=== PATIENT | female | born 1950 | race Hispanic/Latino ===

== ENCOUNTER 2016-07-20 09:22 | Inpatient (IN) | payer MEDICAID, MEDICARE ==
[~2016-07-20 09:22] MED LIST: VANCOMYCIN/NS 1 GM/250 ML 250 ML IV NR
[2016-07-20] MEDS ORDERED: SUBLIMAZE ONE (09:58)
[2016-07-20] MEDS ORDERED: XYLOCAINE MPF 2% ONE (10:04)
[2016-07-20] MEDS ORDERED: XYLOCAINE 1% 20 mL ONE (10:06)
[2016-07-20] MEDS ORDERED: DIPRIVAN 10 MG/ML IV ONE (10:06)
[2016-07-20] MEDS ORDERED: ZEMURON IV ONE (10:08)
[2016-07-20] MEDS ORDERED: ZOFRAN IV PRN ×2 (10:29→15:08)
--- NOTE | 2016-07-20 10:31 | Anesthesia Day of Surgery ---
Anesthesia Day of Surgery - Day of Surgery Patient Examined: Yes Patient H&P Reviewed: Yes Patient is NPO: Yes Beta Blockers: Yes
--- NOTE | 2016-07-20 10:38 | Anesthesia Consultation ---
Anesthesia Consult and Med Hx Date of service: 07/20/16 - Airway Anesthetic Teeth Evaluation: Dentures (UPPER) ROM Head & Neck: Adequate Mental/Hyoid Distance: Adequate Mallampati Class: Class II Intubation Access Assessment: Probably Good - Pulmonary Exam CTA: Yes - Cardiac Exam Cardiac Exam: RRR - Pre-Operative Health Status ASA Pre-Surgery Classification: ASA4 Proposed Anesthetic Plan: General - Pulmonary Hx Smoking: No Hx Asthma: No Hx Sleep Apnea: No - Cardiovascular System Hx Hypertension: Yes (FOR 20+ YRS) Hx Coronary Artery Disease: Yes (NONOBSTRUCTIVE, STRESS TEST NEGATIVE 04/2015) Hx Heart Attack/AMI: No Hx Angina: No Hx Cardia Arrhythmia: No Hx Heart Murmur: Yes - Central Nervous System Hx Seizures: No CVA: No Hx Back Pain: Yes Hx Psychiatric Problems: Yes (ANXIETY) - Gastrointestinal Hx Gastroesophageal Reflux Disease: Yes - Endocrine Hx Renal Disease: Yes (ON DIALYSIS, LAST DIALYSIS 07/19/2016) Hx End Stage Renal Disease: Yes Hx Cirrhosis: No Hx Insulin Dependent Diabetes: No Hx Non-Insulin Dependent Diabetes: No Hx Thyroid Disease: No - Hematic Hx Anemia: Yes - Other Systems Hx Cancer: No Hx Obesity: Yes (BMI 30) - Additional Comments Anesthesia Medical History Comments: DVT IN BOTH LEGS IN PAST.
[2016-07-20] MEDS: NACL 0.9% 1000 ML 1,000 ML IV SCH ×2 (10:40→17:00)
[2016-07-20] MEDS: VERSED IV NR ×2 (10:53→11:19)
[2016-07-20] MEDS ORDERED: PEPCID PO NR (11:00)
[2016-07-20 11:10] LABS: Basophils % (Auto) 0.6 % (0.0-1.8); Eosinophils % (Auto) 2.9 % (0.0-4.3); Hematocrit 31.2 % (30.3-42.9); Hemoglobin 10.2 gm/dl (10.1-14.3); Mean Corpuscular HGB Conc 33 % (30-34); Mean Corpuscular Hemoglobin 33 pg (28-32); Mean Corpuscular Volume 101 fl (79-97); Platelet Count 164 K/mm3 (140-440); Red Cell Distribution Width 18.1 % (13.2-15.2); White Blood Count 5.4 K/mm3 (4.5-11.0)
[2016-07-20 11:12] LABS: BUN/Creatinine Ratio 5.08; Calcium 8.3 mg/dL (8.4-10.2); Chloride 93.7 mmol/L (98-107); Potassium 3.6 mmol/L (3.6-5.0)
[2016-07-20 11:14] LABS: INR 1.06 (0.87-1.13)
[2016-07-20] MEDS ORDERED: ZOFRAN ONE (11:34)
[2016-07-20] MEDS ORDERED: DECADRON ONE (11:34)
[2016-07-20] MEDS ORDERED: ePHEDrine SULFATE ONE (11:48)
[2016-07-20] MEDS ORDERED: HEPARIN 10,000 UNITS/10 ML 4,000 UNIT in NACL 0.9% 1000 ML 1,000 ML IR ONE ×2 (12:30→14:00)
[2016-07-20] MEDS ORDERED: XYLOCAINE 1%/ EPI 1:100,000 INFILTRATI ONE ×2 (12:30)
[2016-07-20] MEDS ORDERED: NEO SYNEPHRINE ONE (13:49)
[2016-07-20] MEDS ORDERED: HEPARIN 10,000 UNITS/10 ML ONE (13:49)
[2016-07-20] MEDS ORDERED: NACL 0.9% 100 ML ONE (14:51)
[2016-07-20] MEDS ORDERED: MARCAINE 0.5% INFILTRATI ONE (15:00)
--- NOTE | 2016-07-20 15:07 | Operative Report ---
Operative Report Operative Report: Date of Procedure: 07/20/2016 Pre-operative Diagnosis: Complications of Dialysis Access With Left Hand Ischemia Post-operative Diagnosis: Same Procedure(s): 1. Left Axillary Artery to Brachial Artery Bypass with Reversed Left Greater Saphenous Vein Graft Surgeon: Pritseh Romano M.D. Wrinkle Chaser: Sushma Henriquez MD Anesthesia: Gen. endotracheal anesthesia EBL: 200 mL Counts: Correct Complications: None Condition: Stable Findings: Successful left axillary artery to brachial artery bypass with palpable radial pulse and thrill in the AV graft and in the case. Specimen: None Indication: The patient is a 66-year-old female with a history of end-stage renal disease and multiple attempts at access in her arm. She presented for creation of a left axillary artery to axillary vein loop graft that she is currently using for dialysis. 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 She underwent endovascular intervention with balloon angioplasty and initially had improvement in her symptoms however they returned shortly after the procedure. It was felt that the best long-term solution will be a bypass. She was given the risks, benefits, and alternative procedures and consented to procedure. Description of Procedure: The patient was brought to the operating room and laid in supine position. After general endotracheal anesthesia was achieved her left leg and left arm were prepped and draped in normal sterile fashion. Longitudinal skip incisions were created in the left thigh extending from the groin to just proximal to the knee and centered over the saphenous vein. Sharp dissection was used to dissect down to the vein and all branches were suture ligated and divided. Once adequate length had been dissected the vein was suture ligated both proximally and distally and then divided and prepped on the back table to ensure that all side branches had been adequately ligated. Turning attention to the left arm. Longitudinal incision was created just distal to the axillary crease, through her previous incision, and carried down to the axillary artery using sharp dissection. On previous arteriograms the patient appeared to have some evidence of steal even after balloon angioplasty of her brachial artery so I felt that the inflow for her bypass graft should be proximal to the AV graft. I dissected circumferentially around the axillary artery into trouble vessels. I then made a transverse incision below the antecubital crease, through her previous incision, and carried this down to the brachial artery using sharp dissection. I dissected the distal brachial artery as well as the small radial artery and ulnar artery and controlled with Vesseloops. I then used a Rylie-Wick tunneler to tunnel anatomically from the brachial artery to the axillary artery incision and then reversed the greater saphenous vein graft and pulled it through the tunnel. I infused with heparinized saline to assure that it was not twisted. At this point systemically heparinized the patient with heparin IV. I then clamped the axillary artery and created an arteriotomy using 11 blade and Uribe scissors and then beveled the greater saphenous vein graft. I created an end-to-side anastomosis using a 6-0 Prolene in running fashion. After completing the anastomosis released all clamps allow flow through the graft with excellent flow and then clamped the graft just distal to the anastomosis. Of note after releasing the clamps on the axillary artery the AV graft and an excellent thrill. I then cut the graft to length and beveled and then clamped the distal brachial artery as well as the radial ulnar arteries. I created an arteriotomy extending from the brachial artery onto the radial artery and then created an end-to-side anastomosis using a 6-0 Prolene in a running fashion. Prior to completing the anastomosis a fossa graft as well as the arteries and then reclamped and completed the anastomosis. Upon completion of the anastomosis all clamps were removed allowing flow in the graft which had an excellent pulse including excellent pulse in the radial artery. Stasis within all wounds was achieved with quick clot. Once hemostasis was achieved anesthetized with Marcaine and the arm incisions were closed in 2 layers using 3-0 Vicryl running fashion the deep dermal layer and 4- 0 Monocryl in running fashion subcuticular and then dressed with Dermabond. The groin incision was closed in 2 layers using 3-0 Vicryl running fashion and the deep dermal layer and 4 Monocryl in running fashion subcuticular and then just with Dermabond. The remaining thigh incisions were closed in 2 layers using a 3-0 Vicryl running fashion the deep dermal layer and guru for the skin. Those incisions were then dressed with an island dressing. Patient tolerated the procedure well. All sponge, needle, and instrument counts were correct. The patient was taken to the recovery area in stable condition.
[2016-07-20] MEDS ORDERED: D50W (25GM) IV PRN (15:08)
[2016-07-20] MEDS ORDERED: NARCAN 0.4 MG/1 ML IV PRN (15:08)
[2016-07-20] MEDS ORDERED: MORPHINE IV PRN (15:08)
[2016-07-20] MEDS ORDERED: ROXICODONE PO PRN (15:13)
--- NOTE | 2016-07-20 15:49 | Admit Criteria Form ---
Admission Criteria Documentation: AMBULATORY SURGERY EXCEPTION CRITERIA Ambulatory Surgery Exception Criteria ( Place 'X' for any and all applicable criteria): Surgery or procedure performed on ambulatory basis may require inpatient stay for[A] ANY ONE of the following(1)(2)(3)(4)(5)(6)(7)(8)(9): [X] I. A preoperative situation, condition, or finding that warrants inpatient stay as indicated by ANY ONE of the following: [] a) Inpatient care needed because of severity of a disease or condition rather than the surgery (eg, severe cardiac or respiratory disease, severe infection) (15) (16 ) (17) (18) [] b) Emergent procedure (eg, angioplasty for acute ischemia)(19) [] c) Complex surgical approach or situation as indicated by ANY ONE of the following(3): [] i) Open approach needed instead of usual endoscopic, transcatheter, or other less invasive procedure [] ii) Difficult approach because of previous operation [] iii) Airway monitoring required after open neck procedures(20)(21) [] iv) Large mass requiring unusually extensive dissection [] v) Additional complicating feature requiring inpatient care (eg, drain management)(22(23): [X] d) Major surgery in a pt with high anesthetic risk as indicated by ANY ONE of the following (2)(3)(5)(7)(8): [X] i) ASA risk class III or higher (severe systemic disease impairing function) [D] [] ii) Advanced age (eg, older than 85 years)(14)(24) [] iii) Symptomatic heart failure(25) [] iv) Symptomatic asthma or COPD(8)(21) [] v) Morbid obesity with hemodynamic or respiratory problems(20)( 21)(26)(27) [] vi) Obstructive sleep apnea(20)(21) [] vii) Former premature infants who are younger than 60 weeks [] viii) High risk for severe postoperative abnormalities (eg, severe postoperative hypocalcemia after parathyroidectomy for severe hyperparathyroidism)(27)( 28) [] ix) Unstable angina(25) [] e) Drug-related risk requiring inpatient stay as indicated by ANY ONE of the following(5)(10)(14)(32)(33) [] i) Procedure requires discontinuing drugs or other therapy (eg , antiarrhythmic medication, antiseizure medication), which necessitates inpatient observation or treatment.(18)(31) [] ii) Major surgery and high risk drug use as indicated by ANY ONE of the following: [] 1) Active abuse of cocaine or similar drug [] 2) Monoamine oxidase inhibitor use [] 3) Other drug identified as posing risk [] f) Inadequate outpatient care situation as indicated by ANY ONE of the following(5)(10)(14)(32)(33) [] i) Patient lives remote from medical facility and procedure has urgent complication potential, and temporary nearby residence cannot be arranged [] ii) Patient will have postprocedure incapacitation and inadequate assistance at home, or alternative level of care cannot be arranged. [] iii) Patient will have long general anesthesia or procedure side effect resolution time, and competent person to stay with patient on first postoperative night at home or alternative level of care cannot be arranged. []iv) Other inadequate outpatient situation that cannot be handled by other means [] II. A perioperative event, condition, or finding that warrants inpatient stay as indicated by ANY ONE of the following (1)(2)(3): [] a) Inadequate physiologic recovery: cardiovascular, respiratory, or hemodynamic status not normal or near preoperative baseline(18) [] b) Hemodynamic instability [] c) Patient not alert with near normal or baseline mental status [] d) Temperature not normal or as expected and not appropriate for outpatient treatment of condition [] e) Ambulatory or appropriate activity level status not yet achieved post procedure [E](34)(35)(36) [] f) Operative site not appropriate (eg, unexpected or excessive drainage or bleeding) [] g) Postoperative effects not resolved or adequately managed (eg, significant pain or vomiting not appropriate for outpatient or next level of care)(10)(12) [] h) Complicating features requiring inpatient care as indicated by ANY ONE of the following(37): [] i) Severe complications of procedure (eg, bowel injury, airway compromise, vascular injury,severe hemorrhage) [] ii) Extensive (eg, dissection far beyond usual scope of procedure ) or prolonged (eg, 120 minutes beyond usual) surgery needed requiring inpatient postoperative care [] iii) Conversion to an open or complex procedure that requires inpatient care (eg, open vs laparoscopic cholecystectomy, abdominal vs vaginal hysterectomy)(38) [] iv) Comorbid condition or test result identified during or post procedure that requires inpatient care (7) [] v) Malignant hyperthermia(30) [] vi) Other complicating feature requiring inpatient care(22)(23) Inpatient stay may be needed until ALL of the following are present (1)(2)(3)(4) (5)(6)(10)(14)(33)(40): []a) Physiologic recovery: cardiovascular, respiratory, and hemodynamic status normal or near preoperative baseline []b) Hemodynamic stability []c) Patient alert, with near normal or baseline mental status []d) Temperature appropriate: patient afebrile or temperature appropriate for outpt treatment of condition []e) Activity level appropriate: ambulatory or appropriate activity level post procedure []f) Operative site appropriate as indicated by ALL of the following: []i) Site dry or with expected drainage []ii) Any blood noted is as expected for procedure. []g) Postoperative effects resolved or managed as indicated by ALL of the following: []i) Pain management appropriate for outpatient (or next level of) care(10) []ii) Minimal nausea and vomiting: if present, successfully treated with oral medication(12) []iii) Headache, dizziness, or drowsiness (if present) are mild. []h) Voiding status acceptable as indicated by ANY ONE of the following: []i) Voiding spontaneously []ii) No voiding but instructions given for follow-up in 6 to 8 hours []iii) Urinary catheter in place, and instructions given for follow-up []i) Complicating features requiring inpatient care manageable at a lower level of care(37) []j) Comorbid conditions manageable at a lower level of care(37) The original [employer] content created by [employer] has been revised. The portions of the content which have been revised are identified through the use of italic text or in bold, and [facility] [employer] has neither reviewed nor approved the modified material. All other unmodified content is copyright [employer]. Please see references footnoted in the original [employer] edition 2016 Admission Criteria Met: Yes
[2016-07-20] MEDS: DILAUDID IV PRN ×4 (16:00→21:30)
--- NOTE | 2016-07-20 16:17 | Post Anesthesia Evaluation ---
- Post Anesthesia Evaluation Patient Participated: Yes Airway Patent: Yes Stable Respiratory Function: Yes Temp > 96.8F: Yes Pain Manageable: Yes Adequeate Hydration: Yes Anesthesia Complications: No Block Receding Appropriately: Not Applicable
[2016-07-20] MEDS ORDERED: COUMADIN PO SCH (17:00)
[2016-07-20] MEDS: RENVELA PO SCH (18:33)
[2016-07-20] MEDS: NOVOLOG SUB-Q SCH ×2 (18:48→23:17)
[2016-07-20] MEDS: TRILEPTAL PO SCH (20:05)
[2016-07-20] MEDS ORDERED: VANCOMYCIN/NS 1 GM/250 ML 250 ML IV SCH (23:00)
[2016-07-20] MEDS: AMBIEN PO SCH (23:17)
[2016-07-20] MEDS: XANAX PO PRN (23:17)
[2016-07-20] MEDS: NEURONTIN PO SCH (23:17)
[2016-07-21] MEDS: DILAUDID IV PRN ×5 (01:05→22:03)
[2016-07-21] MEDS: ZANAFLEX PO SCH ×2 (01:06→21:43)
[2016-07-21 04:39] LABS: Hematocrit 26.1 % (30.3-42.9); Hemoglobin 8.4 gm/dl (10.1-14.3)
[2016-07-21 05:00] LABS: BUN/Creatinine Ratio 6.11; Calcium 7.4 mg/dL (8.4-10.2); Chloride 95.6 mmol/L (98-107); Potassium 5.4 mmol/L (3.6-5.0)
[2016-07-21] MEDS: NACL 0.9% 1000 ML 1,000 ML IV SCH (06:26)
[2016-07-21] MEDS: RENVELA PO SCH ×3 (08:58→19:39)
[2016-07-21] MEDS: NOVOLOG SUB-Q SCH ×2 (08:58→17:04)
[2016-07-21] MEDS: TRILEPTAL PO SCH ×3 (09:12→19:39)
--- NOTE | 2016-07-21 09:34 | Consultation ---
History of Present Illness - Reason for Consult Consult date: 07/21/16 end stage renal disease - History of Present Illness patient with h/o ESRD on HD every TTS, last treatment was sunday she was admitted by Dr Romano for due to complication in her L AV shunt, she developed numbness and ischemic changes in her left hand and she was found to have stenosis in the brachial artery which failed angioplasty, she was admitted to for bypass prcoedure which went well. renal consult requested for ESRD and HD management Past History Past Medical History: diabetes, ESRD, hypertension Medications and Allergies Allergies Allergy/AdvReac Type Severity Reaction Status Date / Time acetaminophen Allergy Itching Verified 09/30/15 12:28 [From Darvocet-N] aspirin Allergy Anaphylaxis Verified 12/06/15 09:24 ciprofloxacin Allergy Hives Verified 09/30/15 12:28 ketorolac tromethamine Allergy Hives Verified 09/30/15 12:28 [From Toradol] lorazepam [From Ativan] Allergy Itching Verified 12/06/15 09:25 nifedipine [From Procardia] Allergy Swelling Verified 09/30/15 12:28 OF THROAT nitrofurantoin Allergy Hives Verified 09/30/15 12:28 [From Macrobid] nitrofurantoin Allergy Hives Verified 09/30/15 12:28 macrocrystalline [From Macrobid] Penicillins Allergy Hives Verified 09/30/15 12:28 propoxyphene napsylate Allergy Itching Verified 09/30/15 12:28 [From Darvocet-N] Sulfa (Sulfonamide AdvReac Swelling Verified 04/15/15 15:41 Antibiotics) Home Medications Medication Instructions Recorded Confirmed Last Taken Type ALPRAZolam [Xanax TAB] 0.5 mg PO BID PRN 04/15/15 07/20/16 07/19/16 History Allopurinol [Zyloprim] 100 mg PO QDAY 04/15/15 07/26/15 Unknown History Folic Acid [Folvite] 1 mg PO QDAY 04/15/15 07/20/16 07/19/16 History Gabapentin [Neurontin] 300 mg PO BID 04/15/15 07/20/16 07/19/16 History Ranitidine HCl [Zantac 150 MG TAB] 150 mg PO DAILY 04/15/15 07/26/15 Unknown History Zolpidem [Ambien] 10 mg PO QHS 04/15/15 07/20/16 07/19/16 History amLODIPine [Norvasc] 5 mg PO DAILY 04/15/15 07/20/16 07/20/16 History cloNIDine [Catapres] 0.2 mg PO QDAY 04/15/15 07/20/16 07/20/16 History Cinacalcet [Sensipar] 60 mg PO QDAY 07/26/15 07/20/16 07/19/16 History Sevelamer Carbonate [Renvela] 800 mg PO TIDWM 07/26/15 07/20/16 07/19/16 History Clopidogrel Bisulfate [Plavix] 75 mg PO DAILY 05/04/16 07/20/16 07/05/16 History Coumadin 20 mg PO QDAY 07/04/16 07/20/16 07/05/16 History Carvedilol [Coreg] 12.5 mg PO QDAY 07/12/16 07/20/16 07/20/16 History HYDROcodone/APAP 10-325 [[place] 1 each PO Q4HR PRN 07/12/16 07/20/16 07/19/16 History 10/325] OXcarbazepine [Trileptal] 300 mg PO TID 07/12/16 07/20/16 07/19/16 History Omeprazole Magnesium [PriLOSEC Otc] 20 mg PO QDAY 07/12/16 07/20/16 07/19/16 History Tizanidine HCl [tiZANidine] 4 mg PO QHS 07/12/16 07/20/16 07/19/16 History Vit B Cplx #11/FA/C/Biot/Zn Ox 1 each PO QDAY 07/12/16 07/20/16 07/19/16 History [Dialyvite with Zinc Tablet] Active Meds: Active Medications Alprazolam (Xanax) 0.5 mg PO BID PRN PRN Reason: Anxiety Last Admin: 07/20/16 23:17 Dose: 0.5 mg Amlodipine Besylate (Norvasc) 5 mg PO DAILY [facility] Carvedilol (Coreg) 12.5 mg PO QDAY [facility] Cinacalcet (Sensipar) 60 mg PO QDAY [facility] Clonidine HCl (Catapres) 0.2 mg PO QDAY [facility] Clopidogrel Bisulfate (Plavix) 75 mg PO DAILY [facility] Dextrose (D50w (25gm)) 50 ml IV PRN PRN PRN Reason: Hypoglycemia Epoetin [place] (Procrit) 10,000 unit IV MIGUEL ÁNGEL PRN PRN Reason: hemodialysis Folic Acid (Folvite) 1 mg PO QDAY [facility] Gabapentin (Neurontin) 300 mg PO BID [facility] Last Admin: 07/20/16 23:17 Dose: 300 mg Hydromorphone HCl (Dilaudid) 1 mg IV Q4H PRN PRN Reason: Pain , Severe (7-10) Last Admin: 07/21/16 05:18 Dose: 1 mg Sodium Chloride (Nacl 0.9% 1000 Ml) 1,000 mls @ 42 mls/hr IV DIRECT [facility] Last Admin: 07/21/16 06:26 Dose: 42 mls/hr Insulin Aspart (Novolog) 0 units SUB-Q ACHS [facility]IO PRN Reason: Protocol Last Admin: 07/21/16 08:58 Dose: Not Given Multivit/Ca Carb/B Cmplx/FA/Prenat (Renal Caps) 1 cap PO QDAY [facility] Naloxone HCl (Narcan 0.4 Mg/1 Ml) 0.1 mg IV Q2MIN PRN PRN Reason: Res Rate </= 8 or 02 SAT < 92% Ondansetron HCl (Zofran) 4 mg IV Q8H PRN PRN Reason: Nausea And Vomiting Oxcarbazepine (Trileptal) 300 mg PO TID [facility] Last Admin: 07/21/16 09:12 Dose: 300 mg Oxycodone HCl (Roxicodone) 10 mg PO Q4H PRN PRN Reason: Pain, Moderate (4-6) Pantoprazole Sodium (Protonix) 20 mg PO QDAY [facility] Sevelamer Carbonate (Renvela) 800 mg PO TIDWM [facility] Last Admin: 07/21/16 08:58 Dose: 800 mg Tizanidine HCl (Zanaflex) 4 mg PO QHS [facility] Last Admin: 07/21/16 01:06 Dose: 4 mg Warfarin Sodium (Coumadin) 10 mg PO DAILY@1700 [facility] Last Admin: 07/20/16 18:33 Dose: 10 mg Zolpidem Tartrate (Ambien) 10 mg PO QHS [facility] Last Admin: 07/20/16 23:17 Dose: 10 mg Review of Systems All systems: negative (weakness, pain at surgical site) Exam - Vital Signs Vital signs: Vital Signs Temp Pulse Resp BP Pulse Ox 98.7 F 83 20 136/58 93 07/20/16 10:00 07/20/16 10:00 07/20/16 10:00 07/20/16 10:00 07/20/16 10:00 - General Appearance General appearance: well-developed, well-nourished EENT: ATNC, PERRL, mucous membranes moist Neck: Present: neck supple Heart: regular, S1S2 Gastrointestinal: Present: normoactive bowel sounds. Absent: tenderness, distended, masses Integumentary: no rash, warm and dry Neurologic: no focal deficit, no asterixis, alert and oriented x3 Musculoskeletal: Present: other (trace pitting edema in BLE, + thrill and bruit in AV shunt) Psychiatric: mood/affect appropriate, cooperative Results - Lab Results 07/21/16 04:23 07/21/16 04:23 Most recent lab results Calcium 7.4 mg/dL (8.4-10.2) L 07/21/16 04:23 Assessment and Plan - Patient Problems (1) ESRD (end stage renal disease) on dialysis Current Visit: No Status: Chronic Plan to address problem: HD today for clearance and gentle volume removal will assess dialysis needs daily strict I&O daily weight renally dose meds renal diet (2) Hypotension Current Visit: No Status: Acute Plan to address problem: cont to hold BP meds gentle IVF (3) Anemia in chronic kidney disease (CKD) Current Visit: Yes Status: Acute Plan to address problem: Epogen with HD iron panel ordered (4) Secondary hyperparathyroidism (of renal origin) Current Visit: Yes Status: Acute Plan to address problem: cont phos binders will check phos in AM cont sensipar (5) Type 2 diabetes mellitus with chronic kidney disease Current Visit: Yes Status: Acute Plan to address problem: on insulin
--- NOTE | 2016-07-21 09:36 | Consultation ---
History of Present Illness Consult date: 07/21/16 Reason for consult: other (ESRD, S/P left axillary artery to brachial artery bypass with palpable radial pulse and thrill in the AV graft and in the case.) History of present illness: Called to evaluate case of a 66-year-old female with a history of end-stage renal disease and AV bypass . Per record,, she had " multiple attempts at access in her arm. She presented for creation of a left axillary artery to axillary vein loop graft that she is currently using for dialysis. 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 She underwent endovascular intervention with balloon angioplasty and initially had improvement in her symptoms however they returned shortly after the procedure. It was felt that the best long-term solution will be a bypass. She was given the risks, benefits , and alternative procedures and consented to procedure". Admitted to ICU after successful left axillary artery to brachial artery bypass with palpable radial pulse and thrill in the AV graft and in the case.Pulm/CCM asked to follow/monitor Medications and Allergies Allergies Allergy/AdvReac Type Severity Reaction Status Date / Time acetaminophen Allergy Itching Verified 09/30/15 12:28 [From Darvocet-N] aspirin Allergy Anaphylaxis Verified 12/06/15 09:24 ciprofloxacin Allergy Hives Verified 09/30/15 12:28 ketorolac tromethamine Allergy Hives Verified 09/30/15 12:28 [From Toradol] lorazepam [From Ativan] Allergy Itching Verified 12/06/15 09:25 nifedipine [From Procardia] Allergy Swelling Verified 09/30/15 12:28 OF THROAT nitrofurantoin Allergy Hives Verified 09/30/15 12:28 [From Macrobid] nitrofurantoin Allergy Hives Verified 09/30/15 12:28 macrocrystalline [From Macrobid] Penicillins Allergy Hives Verified 09/30/15 12:28 propoxyphene napsylate Allergy Itching Verified 09/30/15 12:28 [From Darvocet-N] Sulfa (Sulfonamide AdvReac Swelling Verified 04/15/15 15:41 Antibiotics) Home Medications Medication Instructions Recorded Confirmed Last Taken Type ALPRAZolam [Xanax TAB] 0.5 mg PO BID PRN 04/15/15 07/20/16 07/19/16 History Allopurinol [Zyloprim] 100 mg PO QDAY 04/15/15 07/26/15 Unknown History Folic Acid [Folvite] 1 mg PO QDAY 04/15/15 07/20/16 07/19/16 History Gabapentin [Neurontin] 300 mg PO BID 04/15/15 07/20/16 07/19/16 History Ranitidine HCl [Zantac 150 MG TAB] 150 mg PO DAILY 04/15/15 07/26/15 Unknown History Zolpidem [Ambien] 10 mg PO QHS 04/15/15 07/20/16 07/19/16 History amLODIPine [Norvasc] 5 mg PO DAILY 04/15/15 07/20/16 07/20/16 History cloNIDine [Catapres] 0.2 mg PO QDAY 04/15/15 07/20/16 07/20/16 History Cinacalcet [Sensipar] 60 mg PO QDAY 07/26/15 07/20/16 07/19/16 History Sevelamer Carbonate [Renvela] 800 mg PO TIDWM 07/26/15 07/20/16 07/19/16 History Clopidogrel Bisulfate [Plavix] 75 mg PO DAILY 05/04/16 07/20/16 07/05/16 History Coumadin 20 mg PO QDAY 07/04/16 07/20/16 07/05/16 History Carvedilol [Coreg] 12.5 mg PO QDAY 07/12/16 07/20/16 07/20/16 History HYDROcodone/APAP 10-325 [Sasser 1 each PO Q4HR PRN 07/12/16 07/20/16 07/19/16 History 10/325] OXcarbazepine [Trileptal] 300 mg PO TID 07/12/16 07/20/16 07/19/16 History Omeprazole Magnesium [PriLOSEC Otc] 20 mg PO QDAY 07/12/16 07/20/16 07/19/16 History Tizanidine HCl [tiZANidine] 4 mg PO QHS 07/12/16 07/20/16 07/19/16 History Vit B Cplx #11/FA/C/Biot/Zn Ox 1 each PO QDAY 07/12/16 07/20/1616 History [Dialyvite with Zinc Tablet] Active Meds: Active Medications Alprazolam (Xanax) 0.5 mg PO BID PRN PRN Reason: Anxiety Last Admin: 07/20/16 23:17 Dose: 0.5 mg Amlodipine Besylate (Norvasc) 5 mg PO DAILY [facility] Carvedilol (Coreg) 12.5 mg PO QDAY [facility] Cinacalcet (Sensipar) 60 mg PO QDAY [facility] Clonidine HCl (Catapres) 0.2 mg PO QDAY [facility] Clopidogrel Bisulfate (Plavix) 75 mg PO DAILY [facility] Dextrose (D50w (25gm)) 50 ml IV PRN PRN PRN Reason: Hypoglycemia Epoetin [place] (Procrit) 10,000 unit IV MIGUEL ÁNGEL PRN PRN Reason: hemodialysis Folic Acid (Folvite) 1 mg PO QDAY [facility] Gabapentin (Neurontin) 300 mg PO BID [facility] Last Admin: 07/20/16 23:17 Dose: 300 mg Hydromorphone HCl (Dilaudid) 1 mg IV Q4H PRN PRN Reason: Pain , Severe (7-10) Last Admin: 07/21/16 05:18 Dose: 1 mg Sodium Chloride (Nacl 0.9% 1000 Ml) 1,000 mls @ 42 mls/hr IV DIRECT [facility] Last Admin: 07/21/16 06:26 Dose: 42 mls/hr Insulin Aspart (Novolog) 0 units SUB-Q ACHS [facility] PRN Reason: Protocol Last Admin: 07/21/16 08:58 Dose: Not Given Multivit/Ca Carb/B Cmplx/FA/Prenat (Renal Caps) 1 cap PO QDAY [facility] Naloxone HCl (Narcan 0.4 Mg/1 Ml) 0.1 mg IV Q2MIN PRN PRN Reason: Res Rate </= 8 or 02 SAT < 92% Ondansetron HCl (Zofran) 4 mg IV Q8H PRN PRN Reason: Nausea And Vomiting Oxcarbazepine (Trileptal) 300 mg PO TID [facility] Last Admin: 07/21/16 09:12 Dose: 300 mg Oxycodone HCl (Roxicodone) 10 mg PO Q4H PRN PRN Reason: Pain, Moderate (4-6) Pantoprazole Sodium (Protonix) 20 mg PO QDAY [facility] Sevelamer Carbonate (Renvela) 800 mg PO TIDWM [facility] Last Admin: 07/21/16 08:58 Dose: 800 mg Tizanidine HCl (Zanaflex) 4 mg PO QHS [facility] Last Admin: 07/21/16 01:06 Dose: 4 mg Warfarin Sodium (Coumadin) 10 mg PO DAILY@1700 [facility] Last Admin: 07/20/16 18:33 Dose: 10 mg Zolpidem Tartrate (Ambien) 10 mg PO QHS [facility] Last Admin: 07/20/16 23:17 Dose: 10 mg Review of Systems Constitutional: fatigue, no weight loss, no weight gain, no fever, no chills, no sweats, no night sweats Cardiovascular: no chest pain, no orthopnea, no palpitations, no rapid/ irregular heart beat, no edema, no syncope, no shortness of breath Respiratory: no cough, no cough with sputum, no excessive sputum, no hemoptysis , no shortness of breath, no dyspnea on exertion, no congestion, no wheezing Gastrointestinal: no abdominal pain, no nausea, no vomiting, no diarrhea, no BRBPR, no melena, no hematochezia, no loss of appetite Genitourinary Female: no dyspareunia, no dysmenorrhea Musculoskeletal: other Integumentary: wounds Neurological: no head injury, no paralysis, no weakness, no parathesias, no numbness, no tingling, no seizures Hematologic/Lymphatic: no easy bruising, no easy bleeding Physical Examination Vital signs: Vital Signs Temp Pulse Resp BP Pulse Ox 98.7 F 83 20 136/58 93 07/20/16 10:00 07/20/16 10:00 07/20/16 10:00 07/20/16 10:00 07/20/16 10:00 General appearance: no acute distress Eyes: non-icteric ENT: oropharynx moist Neck: supple Ascultation: Bilateral: clear Cardiovascular: regular rate and rhythm Gastrointestinal: normoactive bowel sounds, non-distended Integumentary: other (right antecubital surgery healing well no gross bleeding) normal mental status, non-focal exam mood appropriate, affect normal Results - Laboratory Findings CBC and BMP: 07/21/16 04:23 07/21/16 04:23 PT/INR, D-dimer PT 13.1 Sec. (12.2-14.9) 07/21/16 04:23 INR 1.00 (0.87-1.13) 07/21/16 04:23 Abnormal lab findings: Abnormal Labs 07/20/16 07/20/16 07/20/16 10:20 10:20 15:36 RBC 3.10 L Hgb Hct MCV 101 H MCH 33 H RDW 18.1 H [place] % (Auto) 9.8 H Potassium Chloride 93.7 L BUN 31 H Creatinine 6.1 H Glucose 102 H POC Glucose 132 H Calcium 8.3 L 07/20/16 07/20/16 07/21/16 18:42 22:50 04:23 RBC Hgb 8.4 L Hct 26.1 L MCV MCH RDW [place] % (Auto) Potassium Chloride BUN Creatinine Glucose POC Glucose 143 H 156 H Calcium 07/21/16 07/21/16 04:23 07:34 RBC Hgb Hct MCV MCH RDW [place] % (Auto) Potassium 5.4 H D Chloride 95.6 L BUN 44 H Creatinine 7.2 H Glucose 139 H POC Glucose 141 H Calcium 7.4 L Assessment and Plan S/P left axillary artery to brachial artery bypass AV graft . Pulses adequate End-stage renal disease Hypertension Recommendations Continue oxygen support if needed to maintain oximetry over 92%. Temperature do well with room air DVT prophylaxis Okay to transfer out from a pulmonary standpoint, once reviewed by surgeon and approved Continue hemodialysis per nephrology.
[2016-07-21] MEDS ORDERED: NON-FORMULARY (Vit B Cplx #11/Fa/C/Biot/Zn Ox [Dialyvite With Zinc Tablet] 1 EACH) PO SCH (10:00)
[2016-07-21] MEDS ORDERED: WARFARIN PO SCH (10:00)
[2016-07-21] MEDS ORDERED: LOVENOX SUB-Q SCH (10:00)
[2016-07-21] MEDS ORDERED: NON-FORMULARY (Omeprazole Magnesium [Prilosec Otc] 20 MG) PO SCH (10:00)
[2016-07-21] MEDS: SENSIPAR PO SCH (10:22)
[2016-07-21] MEDS: PLAVIX PO SCH (10:22)
[2016-07-21] MEDS: FOLVITE PO SCH (10:22)
[2016-07-21] MEDS: PROTONIX PO SCH (10:22)
[2016-07-21] MEDS: NEURONTIN PO SCH ×2 (10:22→21:44)
[2016-07-21] MEDS: CATAPRES PO SCH (10:23)
[2016-07-21] MEDS: COREG PO SCH (10:23)
[2016-07-21] MEDS: NORVASC PO SCH (10:23)
[2016-07-21] MEDS: Renal Caps PO SCH (10:23)
--- NOTE | 2016-07-21 12:31 | Progress Note ---
Assessment and Plan Patient is doing well. I have encouraged her to use oral narcotics for pain control. She will undergo dialysis today. If her pain is better controlled tomorrow and she is clear from a renal standpoint she will be able to be discharged home tomorrow. We'll transfer to the floor. The patient has a hypercoagulable state and is on oral anticoagulation. The patient has confirmed that she is currently on 20 mg of warfarin daily. Given her hypercoagulable state and the fact that she has thrombosed her AV access multiple times and has a new bypass will restart her Coumadin at her home dose and bridge her with Eliquis was until her INR is therapeutic. I discussed this patient in plan with the patient and provided her with Eliquis samples so that she continue this upon discharge. Subjective Date of service: 07/21/16 Principal diagnosis: complications of dialysis access Interval history: The patient's complain of pain at the incisions that is poorly controlled with her current pain regimen. She states that she is using IV medication in the oral narcotics. She does state that her left hand is pain-free and all of her numbness has resolved. She has no other complaints at this time. Objective - Constitutional Vitals: Vital Signs - 12hr 07/21/16 07/21/16 07/21/16 01:00 02:00 02:15 Temperature 97.8 F Pulse Rate 81 67 Respiratory 16 12 Rate Blood Pressure 112/60 86/44 O2 Sat by Pulse 100 97 Oximetry 07/21/16 07/21/16 07/21/16 03:00 04:00 05:00 Temperature Pulse Rate 67 66 62 Respiratory 8 L 7 L 9 L Rate Blood Pressure 102/47 93/45 95/41 O2 Sat by Pulse 97 98 96 Oximetry 07/21/16 07/21/16 07/21/16 05:02 05:04 06:00 Temperature 97.3 F L Pulse Rate 61 63 63 Respiratory 9 L 8 L 7 L Rate Blood Pressure 95/41 95/41 84/38 O2 Sat by Pulse 96 96 97 Oximetry 07/21/16 07/21/16 07/21/16 06:34 07:00 07:42 Temperature Pulse Rate 64 60 70 Respiratory 10 L 9 L 13 Rate Blood Pressure 84/41 91/39 95/44 O2 Sat by Pulse 98 98 98 Oximetry 07/21/16 07/21/1607/21/16 07:46 08:00 08:19 Temperature 97.7 F Pulse Rate 63 Respiratory 9 L Rate Blood Pressure 91/44 O2 Sat by Pulse 100 96 Oximetry 07/21/16 07/21/16 07/21/16 09:00 09:07 10:00 Temperature Pulse Rate 62 72 Respiratory 10 L 9 L Rate Blood Pressure 95/44 105/46 O2 Sat by Pulse 99 98 100 Oximetry 07/21/16 07/21/16 07/21/16 10:23 11:00 11:35 Temperature Pulse Rate 64 60 73 Respiratory 7 L 9 L Rate Blood Pressure 105/46 97/41 97/41 O2 Sat by Pulse 99 100 Oximetry 07/21/16 12:00 Temperature Pulse Rate 70 Respiratory 13 Rate Blood Pressure 103/48 O2 Sat by Pulse 100 Oximetry General appearance: Present: no acute distress - Respiratory Respiratory effort: normal - Cardiovascular Rhythm: regular Extremities: no ischemia, pulses intact (palpable left radial pulse), abnormal ( left thigh and arm incisions are clean dry and intact) Extremity abnormal: other (left AV fistula with excellent thrill) - Gastrointestinal General gastrointestinal: Present: soft, non-tender, non-distended - Labs CBC & Chem 7: 07/21/16 04:23 07/21/16 04:23 Labs: Abnormal lab results 07/20/16 07/20/16 07/20/16 Range/Units 15:36 18:42 22:50 Hgb (10.1-14.3) gm/dl Hct (30.3-42.9) % Potassium (3.6-5.0) mmol/L Chloride (98-107) mmol/L BUN (7-17) mg/dL Creatinine (0.7-1.2) mg/dL Glucose (65-100) mg/dL POC Glucose 132 H 143 H 156 H (70-105) Calcium (8.4-10.2) mg/dL 07/21/16 07/21/16 07/21/16 Range/Units 04:23 04:23 07:34 Hgb 8.4 L (10.1-14.3) gm/dl Hct 26.1 L (30.3-42.9) % Potassium 5.4 H D (3.6-5.0) mmol/L Chloride 95.6 L (98-107) mmol/L BUN 44 H (7-17) mg/dL Creatinine 7.2 H (0.7-1.2) mg/dL Glucose 139 H (65-100) mg/dL POC Glucose 141 H (70-105) Calcium 7.4 L (8.4-10.2) mg/dL 07/21/16 Range/Units 11:30 Hgb (10.1-14.3) gm/dl Hct (30.3-42.9) % Potassium (3.6-5.0) mmol/L Chloride (98-107) mmol/L BUN (7-17) mg/dL Creatinine (0.7-1.2) mg/dL Glucose (65-100) mg/dL POC Glucose 192 H (70-105) Calcium (8.4-10.2) mg/dL
[2016-07-21] MEDS: PROCRIT IV PRN (14:34)
[2016-07-21] MEDS ORDERED: COUMADIN PO SCH (17:00)
[2016-07-21] MEDS: AMBIEN PO SCH (21:44)
[2016-07-21] MEDS: ELIQUIS PO SCH (21:45)
[2016-07-21] MEDS: XANAX PO PRN (21:46)
[2016-07-22] MEDS: NOVOLOG SUB-Q SCH ×4 (01:22→23:09)
[2016-07-22] MEDS: PLAVIX PO SCH (09:03)
[2016-07-22] MEDS: SENSIPAR PO SCH (09:03)
[2016-07-22] MEDS: ELIQUIS PO SCH ×2 (09:03→23:12)
[2016-07-22] MEDS: NEURONTIN PO SCH ×2 (09:04→23:11)
[2016-07-22] MEDS: RENVELA PO SCH (09:04)
[2016-07-22] MEDS: Renal Caps PO SCH (09:04)
[2016-07-22] MEDS: TRILEPTAL PO SCH ×2 (09:05→20:40)
[2016-07-22] MEDS: NORVASC PO SCH (09:05)
[2016-07-22] MEDS: FOLVITE PO SCH (09:05)
[2016-07-22] MEDS: PROTONIX PO SCH (09:05)
[2016-07-22] MEDS: COREG PO SCH ×2 (09:06→23:10)
[2016-07-22] MEDS: CATAPRES PO SCH (09:07)
[2016-07-22 09:24] LABS: INR 1.7 (0.87-1.13)
[2016-07-22] MEDS: DILAUDID IV PRN ×3 (09:34→20:43)
[2016-07-22 10:12] LABS: Basophils % (Auto) 0.7 % (0.0-1.8); Eosinophils % (Auto) 1.5 % (0.0-4.3); Hematocrit 25.7 % (30.3-42.9); Hemoglobin 8.1 gm/dl (10.1-14.3); Mean Corpuscular HGB Conc 32 % (30-34); Mean Corpuscular Hemoglobin 33 pg (28-32); Mean Corpuscular Volume 103 fl (79-97); Platelet Count 164 K/mm3 (140-440); Red Blood Count 2.49 M/mm3 (3.65-5.03); Red Cell Distribution Width 18.7 % (13.2-15.2); White Blood Count 6.9 K/mm3 (4.5-11.0)
--- NOTE | 2016-07-22 10:32 | Progress Note ---
Assessment and Plan - Patient Problems (1) ESRD (end stage renal disease) on dialysis Current Visit: No Status: Chronic Plan to address problem: patient' schedule for outpatient HD is TTS will order HD again today for clearance and volume removal can be discharged from renal standpoint post HD, next scheduled treatment as an outpatient 1/3 (2) Hypotension Current Visit: No Status: Acute Plan to address problem: will d/c clonidine and decrease coreg to 6.25 mg BID (3) Anemia in chronic kidney disease (CKD) Current Visit: Yes Status: Acute Plan to address problem: epogen with HD (4) Secondary hyperparathyroidism (of renal origin) Current Visit: Yes Status: Acute Plan to address problem: cont binders and sensipar (5) Type 2 diabetes mellitus with chronic kidney disease Current Visit: Yes Status: Acute Plan to address problem: cont current insulin regimen Subjective Date of service: 07/22/16 Principal diagnosis: complications of dialysis access Interval history: tolerated HD well yesterday Objective - Vital Signs Vital signs: Vital Signs - 12hr 07/22/16 07/22/16 07/22/16 08:05 09:05 09:06 Temperature 99.2 F Pulse Rate 74 7 L Pulse Rate [ 74 Right Radial] Respiratory 16 Rate Blood Pressure 110/56 110/56 Blood Pressure 110/56 [Right Arm] O2 Sat by Pulse 100 Oximetry 07/22/16 07/22/16 09:07 09:34 Temperature Pulse Rate 74 Pulse Rate [ Right Radial] Respiratory 18 Rate Blood Pressure 110/56 Blood Pressure [Right Arm] O2 Sat by Pulse Oximetry - General Appearance General appearance: well-developed, well-nourished EENT: ATNC, PERRL, mucous membranes moist Neck: no JVD, no carotid bruit Respiratory: Present: Clear to Ascultation Cardiology: regular, S1S2 Gastrointestinal: normoactive bowel sounds, no tenderness, no distended Integumentary: no rash, warm and dry Neurologic: no focal deficit, no asterixis, alert and oriented x3 Musculoskeletal: deferred Psychiatric: mood/affect appropriate, cooperative - Lab 07/22/16 09:43 07/21/16 04:23 Most recent lab results Calcium 7.4 mg/dL (8.4-10.2) L 07/21/16 04:23
[2016-07-22 10:35] LABS: BUN/Creatinine Ratio 5.08; Calcium 8.4 mg/dL (8.4-10.2); Chloride 97.8 mmol/L (98-107); Phosphorous 4.7 mg/dL (2.5-4.5); Potassium 4.7 mmol/L (3.6-5.0)
--- NOTE | 2016-07-22 13:08 | Progress Note ---
Assessment and Plan - Patient Problems (1) Anemia in chronic kidney disease (CKD) Current Visit: Yes Status: Acute (2) Acute on chronic renal failure Current Visit: No Status: Acute (3) Hypoxia Current Visit: Yes Status: Acute Subjective Principal diagnosis: complications of dialysis access Interval history: out of ic, no sob Objective Vital Signs - 12hr 07/22/16 07/22/16 07/22/16 08:05 09:05 09:06 Temperature 99.2 F Pulse Rate 74 7 L Pulse Rate [ 74 Right Radial] Respiratory 16 Rate Blood Pressure 110/56 110/56 Blood Pressure 110/56 [Right Arm] O2 Sat by Pulse 100 Oximetry 07/22/16 07/22/16 09:07 09:34 Temperature Pulse Rate 74 Pulse Rate [ Right Radial] Respiratory 18 Rate Blood Pressure 110/56 Blood Pressure [Right Arm] O2 Sat by Pulse Oximetry Constitutional: no acute distress Eyes: non-icteric ENT: oropharynx moist Neck: supple Ascultation: Bilateral: clear Cardiovascular: regular rate and rhythm Gastrointestinal: normoactive bowel sounds, non-distended Integumentary: other (right antecubital surgery healing well no gross bleeding) Neurologic: normal mental status, non-focal exam Psychiatric: mood appropriate, affect normal CBC and BMP: 07/22/16 09:43 07/22/16 09:43 ABG, PT/INR, D-dimer: PT/INR, D-dimer PT 20.0 Sec. (12.2-14.9) H 07/22/16 08:15 INR 1.70 (0.87-1.13) H 07/22/16 08:15 Abnormal lab findings: Abnormal Labs 07/20/16 07/20/16 07/20/16 10:20 10:20 15:36 RBC 3.10 L Hgb Hct MCV 101 H MCH 33 H RDW 18.1 H [place] % (Auto) 9.8 H Lymph # Seg Neutrophils % PT INR Potassium Chloride 93.7 L BUN 31 H Creatinine 6.1 H Glucose 102 H POC Glucose 132 H Calcium 8.3 L Phosphorus Iron TIBC Ferritin 07/20/16 07/20/16 07/21/16 18:42 22:50 04:23 RBC Hgb 8.4 L Hct 26.1 L MCV MCH RDW [place] % (Auto) Lymph # Seg Neutrophils % PT INR Potassium Chloride BUN Creatinine Glucose POC Glucose 143 H 156 H Calcium Phosphorus Iron TIBC Ferritin 07/21/16 07/21/16 07/21/16 04:23 07:34 11:30 RBC Hgb Hct MCV MCH RDW [place] % (Auto) Lymph # Seg Neutrophils % PT INR Potassium 5.4 H D Chloride 95.6 L BUN 44 H Creatinine 7.2 H Glucose 139 H POC Glucose 141 H 192 H Calcium 7.4 L Phosphorus Iron TIBC Ferritin 07/21/16 07/21/16 07/22/16 16:46 22:01 08:15 RBC Hgb Hct MCV MCH RDW [place] % (Auto) Lymph # Seg Neutrophils % PT 20.0 H INR 1.70 H Potassium Chloride BUN Creatinine Glucose POC Glucose 118 H 131 H Calcium Phosphorus Iron TIBC Ferritin 07/22/16 07/22/16 07/22/16 09:43 09:43 09:43 RBC 2.49 L Hgb 8.1 L Hct 25.7 L MCV 103 H MCH 33 H RDW 18.7 H [place] % (Auto) 8.7 H Lymph # 1.1 L Seg Neutrophils % 72.9 H PT INR Potassium Chloride 97.8 L BUN 31 H Creatinine 6.1 H Glucose 106 H POC Glucose Calcium Phosphorus 4.7 H Iron 20 L TIBC 170 L Ferritin 612.5 H
--- NOTE | 2016-07-22 15:51 | Progress Note ---
Assessment and Plan Status post revascularization of the left upper extremity. Left upper extremity is warm and well-perfused. No further pain of the left upper extremity. She does have some pain at her incisions of the left groin and left antecubital fossa. The patient has confirmed that she is currently on 20 mg of warfarin daily. Given her hypercoagulable state and the fact that she has thrombosed her AV access multiple times and has a new bypass will restart her Coumadin at her home dose and bridge her with Eliquis was until her INR is therapeutic. She has Eliquis samples provided to her. I was planning on discharging patient today, but patient has not ambulated since admission. She ambulated today but her gait was extremely poor. Will consult physical therapy. After physical therapy assessment, we'll plan on discharge. Subjective Date of service: 07/22/16 Principal diagnosis: complications of dialysis access Interval history: The patient's complain of pain at the incisions that better controlled. She has not gotten out of bed since surgery. Discussed importance of ambulating with patient. Consult physical therapy. Likely we'll plan on home PT after physical therapy assessment with subsequent discharge. Her left hand is pain- free and all of her numbness has resolved. Objective - Constitutional Vitals: Vital Signs - 12hr 07/22/16 07/22/16 07/22/16 08:05 09:05 09:06 Temperature 99.2 F Pulse Rate 74 7 L Pulse Rate [ 74 Right Radial] Respiratory 16 Rate Blood Pressure 110/56 110/56 Blood Pressure 110/56 [Right Arm] O2 Sat by Pulse 100 Oximetry 07/22/16 07/22/16 07/22/16 09:07 09:34 10:00 Temperature Pulse Rate 74 Pulse Rate [ Right Radial] Respiratory 18 Rate Blood Pressure 110/56 Blood Pressure [Right Arm] O2 Sat by Pulse 94 Oximetry General appearance: Present: no acute distress - EENT Eyes: EOM intact ENT: hearing intact - Respiratory Respiratory effort: normal Extremities: normal temperature (left upper extremity), normal color (left upper extremity) Extremity abnormal: other (incision on left thigh clean, dry, and intact. Incision on left antebrachial fossa clean, dry, and intact.) - Psychiatric Psychiatric: appropriate mood/affect, cooperative - Labs CBC & Chem 7: 07/22/16 09:43 07/22/16 09:43 Labs: Abnormal lab results 07/21/16 07/21/16 07/22/16 Range/Units 16:46 22:01 08:15 RBC (3.65-5.03) M/mm3 Hgb (10.1-14.3) gm/dl Hct (30.3-42.9) % MCV (79-97) fl MCH (28-32) pg RDW (13.2-15.2) % [place] % (Auto) (0.0-7.3) % Lymph # (1.2-5.4) K/mm3 Seg Neutrophils % (40.0-70.0) % PT 20.0 H (12.2-14.9) Sec. INR 1.70 H (0.87-1.13) Chloride (98-107) mmol/L BUN (7-17) mg/dL Creatinine (0.7-1.2) mg/dL Glucose (65-100) mg/dL POC Glucose 118 H 131 H (70-105) Phosphorus (2.5-4.5) mg/dL Iron (37-170) ug/dL TIBC (250-450) mcg/dL Ferritin (13.0-400.0) ng/mL 07/22/16 07/22/16 07/22/16 Range/Units 09:43 09:43 09:43 RBC 2.49 L (3.65-5.03) M/mm3 Hgb 8.1 L (10.1-14.3) gm/dl Hct 25.7 L (30.3-42.9) % MCV 103 H (79-97) fl MCH 33 H (28-32) pg RDW 18.7 H (13.2-15.2) % [place] % (Auto) 8.7 H (0.0-7.3) % Lymph # 1.1 L (1.2-5.4) K/mm3 Seg Neutrophils % 72.9 H (40.0-70.0) % PT (12.2-14.9) Sec. INR (0.87-1.13) Chloride 97.8 L (98-107) mmol/L BUN 31 H (7-17) mg/dL Creatinine 6.1 H (0.7-1.2) mg/dL Glucose 106 H (65-100) mg/dL POC Glucose (70-105) Phosphorus 4.7 H (2.5-4.5) mg/dL Iron 20 L (37-170) ug/dL TIBC 170 L (250-450) mcg/dL Ferritin 612.5 H (13.0-400.0) ng/mL
[2016-07-22] MEDS ORDERED: NACL 0.9 (PRIMING MACHINE ONLY DIALYSIS) MC ONE (17:51)
[2016-07-22] MEDS: PROCRIT IV PRN (18:43)
[2016-07-22] MEDS: AMBIEN PO SCH (23:11)
[2016-07-22] MEDS: ZANAFLEX PO SCH (23:12)
[2016-07-23] MEDS: DILAUDID IV PRN ×3 (04:25→20:10)
[2016-07-23 05:44] LABS: Basophils % (Auto) 0.9 % (0.0-1.8); Eosinophils % (Auto) 1.6 % (0.0-4.3); Hematocrit 24.5 % (30.3-42.9); Hemoglobin 8.1 gm/dl (10.1-14.3); Mean Corpuscular HGB Conc 33 % (30-34); Mean Corpuscular Hemoglobin 33 pg (28-32); Mean Corpuscular Volume 101 fl (79-97); Platelet Count 187 K/mm3 (140-440); Red Blood Count 2.43 M/mm3 (3.65-5.03); Red Cell Distribution Width 17.6 % (13.2-15.2); White Blood Count 7.9 K/mm3 (4.5-11.0)
[2016-07-23 05:57] LABS: BUN/Creatinine Ratio 4.34; Calcium 8.8 mg/dL (8.4-10.2); Chloride 97.8 mmol/L (98-107); Phosphorous 2.3 mg/dL (2.5-4.5); Potassium 3.8 mmol/L (3.6-5.0)
--- NOTE | 2016-07-23 07:54 | Progress Note ---
Assessment and Plan - Patient Problems (1) ESRD (end stage renal disease) on dialysis Current Visit: No Status: Chronic Plan to address problem: no indication for HD today will assess dialyssi needs daily strict I&O daily weights renal diet renally dose meds (2) Hypotension Current Visit: No Status: Acute Plan to address problem: improved with adjusting BP meds (3) Anemia in chronic kidney disease (CKD) Current Visit: Yes Status: Acute Plan to address problem: Epogen with HD no indication for transfusion (4) Secondary hyperparathyroidism (of renal origin) Current Visit: Yes Status: Acute Plan to address problem: cont phos binders and sensipar (5) Type 2 diabetes mellitus with chronic kidney disease Current Visit: Yes Status: Acute Plan to address problem: per primary team Subjective Date of service: 07/23/16 Principal diagnosis: complications of dialysis access Interval history: tolerated dialysis well yesterday Objective - Vital Signs Vital signs: Vital Signs - 12hr 07/22/16 07/22/16 07/22/16 20:43 21:13 21:52 Temperature Pulse Rate Pulse Rate [ Right Radial] Respiratory 20 18 Rate Respiratory Rate [Abdomen] Respiratory Rate [Bilateral Leg] Respiratory Rate [Head] Respiratory Rate [Left Hand ] Blood Pressure Blood Pressure [Right Arm] O2 Sat by Pulse 96 Oximetry 07/22/16 07/22/16 07/23/16 22:00 23:10 00:00 Temperature 97.9 F Pulse Rate 97 H Pulse Rate [ 97 H Right Radial] Respiratory 18 Rate Respiratory 20 Rate [Abdomen] Respiratory 20 Rate [Bilateral Leg] Respiratory 20 Rate [Head] Respiratory 20 Rate [Left Hand ] Blood Pressure 140/62 Blood Pressure 140/62 [Right Arm] O2 Sat by Pulse 93 Oximetry 07/23/16 07/23/16 04:25 04:55 Temperature Pulse Rate Pulse Rate [ Right Radial] Respiratory 20 18 Rate Respiratory Rate [Abdomen] Respiratory Rate [Bilateral Leg] Respiratory Rate [Head] Respiratory Rate [Left Hand ] Blood Pressure Blood Pressure [Right Arm] O2 Sat by Pulse Oximetry - General Appearance General appearance: well-developed, well-nourished, obese EENT: ATNC, PERRL, mucous membranes moist Neck: no JVD, no carotid bruit Respiratory: Present: Clear to Ascultation, Normal Exam. Absent: Rales, Ronchi Cardiology: regular, S1S2 Gastrointestinal: normoactive bowel sounds, no tenderness, no distended Integumentary: no rash, warm and dry Neurologic: no focal deficit, no asterixis, alert and oriented x3 Musculoskeletal: other (trace pitting edema in BLE) Psychiatric: mood/affect appropriate, cooperative - Lab 07/23/16 05:16 07/23/16 05:16 Most recent lab results Calcium 8.8 mg/dL (8.4-10.2) 07/23/16 05:16 Phosphorus 2.3 mg/dL (2.5-4.5) L D 07/23/16 05:16
[2016-07-23] MEDS: RENVELA PO SCH ×7 (10:45→18:29)
[2016-07-23] MEDS: NEURONTIN PO SCH ×2 (10:48→22:36)
[2016-07-23] MEDS: SENSIPAR PO SCH (10:48)
[2016-07-23] MEDS: FOLVITE PO SCH (10:48)
[2016-07-23] MEDS: Renal Caps PO SCH (10:48)
[2016-07-23] MEDS: COREG PO SCH ×2 (10:49→22:36)
[2016-07-23] MEDS: PROTONIX PO SCH (10:49)
[2016-07-23] MEDS: NORVASC PO SCH (10:50)
[2016-07-23] MEDS: PLAVIX PO SCH (10:50)
[2016-07-23] MEDS: ELIQUIS PO SCH (10:51)
[2016-07-23] MEDS: NOVOLOG SUB-Q SCH ×4 (10:54→22:45)
[2016-07-23] MEDS: TRILEPTAL PO SCH ×5 (11:00→20:10)
--- NOTE | 2016-07-23 13:05 | Progress Note ---
Assessment and Plan Status post revascularization of the left upper extremity. Left upper extremity is warm and well-perfused. No further pain of the left upper extremity. She does have some pain at her incisions of the left groin and left antecubital fossa. The patient has confirmed that she is currently on 20 mg of warfarin daily. She is therapeutic on her INR. Discontinue Eliquis. Instructed patient to not use eliquis samples. PT evaluated patient. Needs rolling walker. Cannot get rolling walker until tomorrow. Will discharge tomorrow with rolling walking, home health and home pt. Home pt for dressing changes to left thigh with minimal serosanginous drainage. Subjective Date of service: 07/23/16 Principal diagnosis: complications of dialysis access Interval history: Pain at the incisions are better controlled. She has worked with PT. Recommended rolling walker when discharged. Discussed with case management. No rolling walking available until tomorrow. We will plan on home PT/health. Her left hand is pain-free and all of her numbness has resolved. Objective - Constitutional Vitals: Vital Signs - 12hr 07/23/16 07/23/16 07/23/16 04:25 04:55 07:59 Temperature 99.0 F Pulse Rate [ 76 Right Radial] Respiratory 20 18 14 Rate Blood Pressure Blood Pressure 99/49 [Right Arm] O2 Sat by Pulse 99 Oximetry 07/23/16 07/23/16 07/23/16 09:20 10:49 10:50 Temperature Pulse Rate [ Right Radial] Respiratory Rate Blood Pressure 110/58 99/65 Blood Pressure [Right Arm] O2 Sat by Pulse 94 Oximetry General appearance: Present: no acute distress - EENT Eyes: EOM intact ENT: hearing intact - Respiratory Respiratory effort: normal Extremities: normal temperature (left arm), normal color (left arm) Extremity abnormal: other (incision at left antecubital fossa c/d/i, incision at left thigh harvest site has minimal serosanginous drainage at the mid incision.) - Psychiatric Psychiatric: cooperative - Labs CBC & Chem 7: 07/23/16 05:16 07/23/16 05:16 Labs: Abnormal lab results 07/22/16 07/23/16 07/23/16 Range/Units 22:39 05:16 05:16 RBC 2.43 L (3.65-5.03) M/mm3 Hgb 8.1 L (10.1-14.3) gm/dl Hct 24.5 L (30.3-42.9) % MCV 101 H (79-97) fl MCH 33 H (28-32) pg RDW 17.6 H (13.2-15.2) % [place] % (Auto) 8.5 H (0.0-7.3) % Seg Neutrophils % 73.9 H (40.0-70.0) % PT 22.7 H (12.2-14.9) Sec. INR 2.00 H (0.87-1.13) Chloride (98-107) mmol/L BUN (7-17) mg/dL Creatinine (0.7-1.2) mg/dL Glucose (65-100) mg/dL POC Glucose 164 H (70-105) Phosphorus (2.5-4.5) mg/dL 07/23/16 07/23/16 Range/Units 05:16 05:44 RBC (3.65-5.03) M/mm3 Hgb (10.1-14.3) gm/dl Hct (30.3-42.9) % MCV (79-97) fl MCH (28-32) pg RDW (13.2-15.2) % [place] % (Auto) (0.0-7.3) % Seg Neutrophils % (40.0-70.0) % PT (12.2-14.9) Sec. INR (0.87-1.13) Chloride 97.8 L (98-107) mmol/L BUN 20 H (7-17) mg/dL Creatinine 4.6 H (0.7-1.2) mg/dL Glucose 123 H (65-100) mg/dL POC Glucose 133 H (70-105) Phosphorus 2.3 L D (2.5-4.5) mg/dL
[2016-07-23] MEDS ORDERED: COUMADIN PO SCH (17:00)
[2016-07-23] MEDS: AMBIEN PO SCH (22:36)
[2016-07-23] MEDS: ZANAFLEX PO SCH (22:36)
[2016-07-24 09:17] LABS: Basophils % (Auto) 0.8 % (0.0-1.8); Eosinophils % (Auto) 2.5 % (0.0-4.3); Hematocrit 24.1 % (30.3-42.9); Hemoglobin 7.8 gm/dl (10.1-14.3); Mean Corpuscular HGB Conc 32 % (30-34); Mean Corpuscular Hemoglobin 32 pg (28-32); Mean Corpuscular Volume 101 fl (79-97); Platelet Count 223 K/mm3 (140-440); Red Blood Count 2.39 M/mm3 (3.65-5.03); Red Cell Distribution Width 17.7 % (13.2-15.2); White Blood Count 7.7 K/mm3 (4.5-11.0)
[2016-07-24 09:29] LABS: BUN/Creatinine Ratio 5.37; Chloride 97.2 mmol/L (98-107); Phosphorous 3.3 mg/dL (2.5-4.5); Potassium 4.2 mmol/L (3.6-5.0)
[2016-07-24 09:34] LABS: INR 1.58 (0.87-1.13)
[2016-07-24] MEDS: NORVASC PO SCH (09:41)
[2016-07-24] MEDS: PROTONIX PO SCH (09:42)
[2016-07-24] MEDS: FOLVITE PO SCH (09:42)
[2016-07-24] MEDS: TRILEPTAL PO SCH ×2 (09:42→14:06)
[2016-07-24] MEDS: COREG PO SCH (09:42)
[2016-07-24] MEDS: RENVELA PO SCH ×3 (09:43→12:33)
[2016-07-24] MEDS: NEURONTIN PO SCH (09:43)
[2016-07-24] MEDS: PLAVIX PO SCH (09:43)
[2016-07-24] MEDS: Renal Caps PO SCH (09:43)
[2016-07-24] MEDS: SENSIPAR PO SCH (09:43)
[2016-07-24] MEDS: DILAUDID IV PRN ×2 (09:53→14:09)
--- NOTE | 2016-07-24 10:16 | Progress Note ---
Assessment and Plan (1) ESRD (end stage renal disease) on dialysis Current Visit: No Status: Chronic Plan to address problem: HD today for clearance and volume removal Ok to be discharged from renal standpoint post HD, scheduled to have her treatment as an outpatient tomorrow will assess dialysis needs daily strict I&O daily weights renal diet renally dose meds (2) Hypotension Current Visit: No Status: Acute Plan to address problem: improved with adjusting BP meds (3) Anemia in chronic kidney disease (CKD) Current Visit: Yes Status: Acute Plan to address problem: Epogen with HD no indication for transfusion (4) Secondary hyperparathyroidism (of renal origin) Current Visit: Yes Status: Acute Plan to address problem: cont phos binders and sensipar (5) Type 2 diabetes mellitus with chronic kidney disease Current Visit: Yes Status: Acute Plan to address problem: per primary team Subjective Date of service: 07/24/16 Principal diagnosis: complications of dialysis access Interval history: feels mildly weak, requesting to home, waiting on walker Objective - Vital Signs Vital signs: Vital Signs - 12hr 07/23/16 07/23/16 07/24/16 22:36 23:00 08:00 Temperature 98.8 F 98.3 F Pulse Rate 86 Pulse Rate [ 86 84 Right Radial] Respiratory 18 20 Rate Blood Pressure 127/62 Blood Pressure 127/62 128/60 [Right Arm] O2 Sat by Pulse 98 96 Oximetry 07/24/16 07/24/16 07/24/16 09:41 09:42 09:53 Temperature Pulse Rate 84 84 Pulse Rate [ Right Radial] Respiratory 16 Rate Blood Pressure 124/65 124/65 Blood Pressure [Right Arm] O2 Sat by Pulse 97 Oximetry - General Appearance General appearance: well-developed, well-nourished EENT: ATNC, PERRL, mucous membranes moist Neck: no JVD, no carotid bruit Respiratory: Present: Clear to Ascultation. Absent: Rales, Ronchi Cardiology: regular, S1S2 Gastrointestinal: normoactive bowel sounds, no tenderness, no distended, obese Integumentary: no rash, warm and dry Neurologic: no focal deficit, no asterixis, alert and oriented x3 Musculoskeletal: other (no edema in BLE) Psychiatric: mood/affect appropriate, cooperative - Lab 07/24/16 08:47 07/24/16 08:47 Most recent lab results Calcium 8.0 mg/dL (8.4-10.2) L 07/24/16 08:47 Phosphorus 3.3 mg/dL (2.5-4.5) D 07/24/16 08:47
[2016-07-24] MEDS: NOVOLOG SUB-Q SCH (11:30)
--- NOTE | 2016-07-24 14:12 | Discharge Summary ---
Providers - Providers Date of Admission: 07/20/16 15:30 Date of discharge: 07/24/16 Attending physician: PRITESH JACK 07/20/16 15:08 Consult to Physician [CONS] Routine Consulting Provider: GENNY PEARSON Reason For Exam: Critical care management Place consult to:: GENNY PEARSON Notified:: ANSWERING SERVICE Phone number called:: [phone] Was contact made?: Yes If yes, spoke with:: PATIENCE () Time called:: 07:12 Consult to Physician [CONS] Routine Consulting Provider: SORIN LYNN Reason For Exam: Dialysis Management Place consult to:: SORIN LYNN Notified:: Y Phone number called:: [phone] Was contact made?: Yes If yes, spoke with:: DR. LYNN Time called:: 07:21 07/21/16 09:04 Consult to Wound/ET Nurse [CONS] Routine Reason For Exam: bilateral feet wounds 07/22/16 15:49 Physical Therapy Evaluation and Treat [CONS] Routine Comment: Reason For Exam: difficulty ambulating after vein harvest Hospitalization Reason for admission: Ischemia of the LUE Condition: Stable Procedures: Date of Procedure: 07/20/2016 Pre-operative Diagnosis: Complications of Dialysis Access With Left Hand Ischemia Post-operative Diagnosis: Same Procedure(s): 1. Left Axillary Artery to Brachial Artery Bypass with Reversed Left Greater Saphenous Vein Graft Surgeon: Pritesh Jack M.D. Director Of Sales And Marketing: Sushma Henriquez MD Anesthesia: Gen. endotracheal anesthesia EBL: 200 mL Counts: Correct Complications: None Condition: Stable Findings: Successful left axillary artery to brachial artery bypass with palpable radial pulse and thrill in the AV graft and in the case. Specimen: None Indication: The patient is a 66-year-old female with a history of end-stage renal disease and multiple attempts at access in her arm. She presented for creation of a left axillary artery to axillary vein loop graft that she is currently using for dialysis. 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 She underwent endovascular intervention with balloon angioplasty and initially had improvement in her symptoms however they returned shortly after the procedure. It was felt that the best long-term solution will be a bypass. She was given the risks, benefits, and alternative procedures and consented to procedure. Description of Procedure: The patient was brought to the operating room and laid in supine position. After general endotracheal anesthesia was achieved her left leg and left arm were prepped and draped in normal sterile fashion. Longitudinal skip incisions were created in the left thigh extending from the groin to just proximal to the knee and centered over the saphenous vein. Sharp dissection was used to dissect down to the vein and all branches were suture ligated and divided. Once adequate length had been dissected the vein was suture ligated both proximally and distally and then divided and prepped on the back table to ensure that all side branches had been adequately ligated. Turning attention to the left arm. Longitudinal incision was created just distal to the axillary crease, through her previous incision, and carried down to the axillary artery using sharp dissection. On previous arteriograms the patient appeared to have some evidence of steal even after balloon angioplasty of her brachial artery so I felt that the inflow for her bypass graft should be proximal to the AV graft. I dissected circumferentially around the axillary artery into trouble vessels. I then made a transverse incision below the antecubital crease, through her previous incision, and carried this down to the brachial artery using sharp dissection. I dissected the distal brachial artery as well as the small radial artery and ulnar artery and controlled with Vesseloops. I then used a Rylie-Wick tunneler to tunnel anatomically from the brachial artery to the axillary artery incision and then reversed the greater saphenous vein graft and pulled it through the tunnel. I infused with heparinized saline to assure that it was not twisted. At this point systemically heparinized the patient with heparin IV. I then clamped the axillary artery and created an arteriotomy using 11 blade and Uribe scissors and then beveled the greater saphenous vein graft. I created an end-to-side anastomosis using a 6-0 Prolene in running fashion. After completing the anastomosis released all clamps allow flow through the graft with excellent flow and then clamped the graft just distal to the anastomosis. Of note after releasing the clamps on the axillary artery the AV graft and an excellent thrill. I then cut the graft to length and beveled and then clamped the distal brachial artery as well as the radial ulnar arteries. I created an arteriotomy extending from the brachial artery onto the radial artery and then created an end-to-side anastomosis using a 6-0 Prolene in a running fashion. Prior to completing the anastomosis a fossa graft as well as the arteries and then reclamped and completed the anastomosis. Upon completion of the anastomosis all clamps were removed allowing flow in the graft which had an excellent pulse including excellent pulse in the radial artery. Stasis within all wounds was achieved with quick clot. Once hemostasis was achieved anesthetized with Marcaine and the arm incisions were closed in 2 layers using 3-0 Vicryl running fashion the deep dermal layer and 4- 0 Monocryl in running fashion subcuticular and then dressed with Dermabond. The groin incision was closed in 2 layers using 3-0 Vicryl running fashion and the deep dermal layer and 4 Monocryl in running fashion subcuticular and then just with Dermabond. The remaining thigh incisions were closed in 2 layers using a 3-0 Vicryl running fashion the deep dermal layer and guru for the skin. Those incisions were then dressed with an island dressing. Patient tolerated the procedure well. All sponge, needle, and instrument counts were correct. The patient was taken to the recovery area in stable condition. Hospital course: 66-year-old female with end-stage renal disease and left upper extremity arterial insufficiency with left upper extremity axillary axillary loop graft status post revascularization of the left upper extremity using a saphenous vein axillary brachial bypass. Patient postoperatively had significant pain at her incision sites, but her motor dysfunction, sensory dysfunction, and pain of her hand resolved. Her left upper extremity was warm and well-perfused. Pain control was transitioned from IV to by mouth medications. Patient did not ambulate due to left groin incision, and ultimately ambulated with physical therapy who recommended a rolling walker and home physical therapy. Home physical therapy will see the patient, and home health will see the patient for dressing changes of the left thigh incision. The patient was seen by wound care and has diabetic plantar ulcers requiring Darco boot. Patient will be provided to her coping prescription at time of discharge. Patient will be provided pain medication at time of discharge. Patient has a hypercoagulable condition and is on chronic Coumadin. She will not require Elmer was at home. This was discussed with the patient. She will not require anticoagulation because her INR is therapeutic at time of discharge. Disposition: DISCHARGED TO HOME OR SELFCARE Time spent for discharge: 45 minutes - Discharge Diagnoses (1) Anticoagulated on Coumadin Status: Acute (2) ESRD (end stage renal disease) on dialysis Status: Chronic (3) Ischemia of extremity Status: Acute Core Measure Documentation - Palliative Care Palliative Care/ Comfort Measures: Not Applicable - Core Measures Any of the following diagnoses?: none - VTE Discharge Requirements Deep Vein Thrombosis/Pulmonary Embolism Present on Admission: No Exam - Constitutional Vitals: Temp Pulse Resp BP Pulse Ox 98.3 F 84 16 124/65 97 07/24/16 08:00 07/24/16 09:42 07/24/16 14:09 07/24/16 09:42 07/24/16 09:53 General appearance: Present: no acute distress - EENT Eyes: Present: EOM intact ENT: hearing intact - Respiratory Respiratory effort: normal - Extremities Extremities: normal temperature (LUE), normal color (LUE) Extremity abnormal: other (incision at left antecubital fossa c/d/i ; minimal serosanginous oozing from the mid portion of her left vein harvest site) - Psychiatric Psychiatric: appropriate mood/affect, cooperative Plan Activity: advance as tolerated Weight Bearing Status: Weight Bear as Tolerated Diet: renal Wound: keep clean and dry (Do not soak in bath ; can have water fall over it in a shower ; do not scrub the areas ; dry to otherwise keep them clean and dry ; keep left groin incision covered) Special Instructions: no heavy lifting Durable Medical Equipment Needed Upon Discharge: Walker-Rolling Additional Instructions: Follow up with Dr. Jack in 1-2 weeks. Follow up with: BETZAIDA LEHMAN [Other] - 7 Days Forms: Warfarin Discharge Instruction Prescriptions: oxyCODONE [Roxicodone TAB] 5 mg PO Q6HR PRN #30 tablet PRN Reason: Pain
[2016-07-24 16:12] VITALS: BP 100/58
== END 2016-07-24 17:15 | disposition home or self-care (01) | DRG 252 ==
LOC: OR 09:22 → CC1 15:30 → 3A 07-22 00:44
PROVIDERS: ADMIT Surgery Vascular Surgery; ATTEND Surgery Vascular Surgery
PROC: 06BQ0ZZ Excision of Left Saphenous Vein, Open Approach (ICD-10-PCS; principal; 2016-07-20)
PROC: 031 Upper Arteries, Bypass (ICD-10-PCS; 2016-07-20)
DX: T82.590A Other mechanical complication of surgically created arteriovenous fistula, initial encounter (principal); N18.6 End stage renal disease; I12.0 Hypertensive chronic kidney disease with stage 5 chronic kidney disease or end stage renal disease; I95.9 Hypotension, unspecified; M19.90 Unspecified osteoarthritis, unspecified site; F41.9 Anxiety disorder, unspecified; E66.9 Obesity, unspecified; E11.22 Type 2 diabetes mellitus with diabetic chronic kidney disease; D63.1 Anemia in chronic kidney disease; N25.81 Secondary hyperparathyroidism of renal origin; R09.02 Hypoxemia; N17.9 Acute kidney failure, unspecified; Z99.2 Dependence on renal dialysis; Z90.49 Acquired absence of other specified parts of digestive tract; Z98.890 Other specified postprocedural states; Z88.0 Allergy status to penicillin; Z88.2 Allergy status to sulfonamides; Z88.1 Allergy status to other antibiotic agents; Z88.8 Allergy status to other drugs, medicaments and biological substances; Z82.49 Family history of ischemic heart disease and other diseases of the circulatory system; Z80.9 Family history of malignant neoplasm, unspecified; Z68.30 Body mass index [BMI] 30.0-30.9, adult; Z86.718 Personal history of other venous thrombosis and embolism; Z79.899 Other long term (current) drug therapy; Z79.01 Long term (current) use of anticoagulants
CPT/HCPCS: 36415; 80048; 82728; 82962; 83550; 84100; 85014; 85018; 85025; 85610; 86850; 86900; 86901; 94760; G8978-GP; G8979-GP; J0885; J1100; J1170; J1644; J1815; J2250; J2270; J2370; J2405; J2704; J3010; J3370; J7030

== ENCOUNTER 2017-02-03 21:46 | Inpatient (IN) | payer MEDICAID, MEDICARE ==
[2017-02-03] MEDS ORDERED: NACL 0.9% 500 ML 500 ML IV ONE (23:11)
[2017-02-03] MEDS ORDERED: NACL 0.9% 1000 ML 0 ML ONE (23:31)
--- NOTE | 2017-02-04 00:08 | Emergency Department Report ---
ED General Adult HPI - General Chief complaint: Dyspnea/Respdistress Stated complaint: FEVER, MISSED DIALYSIS Time Seen by Provider: 02/03/17 23:13 Source: patient, EMS (ems notes not available at time of chart dictation), RN notes reviewed, old records reviewed Mode of arrival: Ambulatory Limitations: No Limitations - History of Present Illness Initial comments: This is a 66-year-old female. She is previously unknown to me. She has a past medical history of end-stage renal disease on dialysis Sunday, , Sunday, hypertension and high cholesterol. Abdominal surgical history includes cholecystectomy, hysterectomy, AV fistula. The patient was last dialyzed on Sunday. She has missed 2 dialysis sessions. Her gear design engineer is Dr.M Wade the patient presents to the ER with EMS for generalized weakness, cough, malaise, fever and diffuse abdominal pain. Symptoms started this evening. They 're constant. The abdominal pain is diffuse. It increases with palpation. It decreases with rest. Patient denies irritative and obstructive urinary symptoms. She reports that she makes scant urine. She reports going to the bathroom earlier on today. Mild cough. No severe chest pain. -: Gradual Location: abdomen Quality: aching Consistency: constant Improves with: rest Worsens with: movement Associated Symptoms: cough, fever/chills, loss of appetite, malaise, weakness. denies: confusion, chest pain - Related Data Home Medications Medication Instructions Recorded Confirmed Last Taken ALPRAZolam [Xanax TAB] 0.5 mg PO BID PRN 04/15/15 07/20/16 07/19/16 Folic Acid [Folvite] 1 mg PO QDAY 04/15/15 07/20/16 07/19/16 Gabapentin [Neurontin] 300 mg PO BID 04/15/15 07/20/16 07/19/16 Zolpidem [Ambien] 10 mg PO QHS 04/15/15 07/20/16 07/19/16 amLODIPine [Norvasc] 5 mg PO DAILY 04/15/15 07/20/16 07/20/16 cloNIDine [Catapres] 0.2 mg PO QDAY 04/15/15 07/20/16 07/20/16 Cinacalcet [Sensipar] 60 mg PO QDAY 07/26/15 07/20/16 07/19/16 Sevelamer Carbonate [Renvela] 800 mg PO TIDWM 07/26/15 07/20/16 07/19/16 Clopidogrel Bisulfate [Plavix] 75 mg PO DAILY 05/04/16 07/20/16 07/05/16 Coumadin 20 mg PO QDAY 07/04/16 07/20/16 07/05/16 Carvedilol [Coreg] 12.5 mg PO QDAY 07/12/16 07/20/16 07/20/16 HYDROcodone/APAP 10-325 [[place] 1 each PO Q4HR PRN 07/12/16 07/20/16 07/19/16 10/325] OXcarbazepine [Trileptal] 300 mg PO TID 07/12/16 07/20/16 07/19/16 Omeprazole Magnesium [PriLOSEC Otc] 20 mg PO QDAY 07/12/16 07/20/16 07/19/16 Tizanidine HCl [tiZANidine] 4 mg PO QHS 07/12/16 07/20/16 07/19/16 Vit B Cplx #11/FA/C/Biot/Zn Ox 1 each PO QDAY 07/12/16 07/20/16 07/19/16 [Dialyvite with Zinc Tablet] Previous Rx's Medication Instructions Recorded Last Taken Type oxyCODONE [Roxicodone TAB] 5 mg PO Q6HR PRN #30 tablet 07/24/16 Unknown Rx Allergies Allergy/AdvReac Type Severity Reaction Status Date / Time acetaminophen Allergy Itching Verified 09/30/15 12:28 [From Darvocet-N] aspirin Allergy Anaphylaxis Verified 12/06/15 09:24 ciprofloxacin Allergy Hives Verified 09/30/15 12:28 ketorolac tromethamine Allergy Hives Verified 09/30/15 12:28 [From Toradol] lorazepam [From Ativan] Allergy Itching Verified 12/06/15 09:25 nifedipine [From Procardia] Allergy Swelling Verified 09/30/15 12:28 OF THROAT nitrofurantoin Allergy Hives Verified 09/30/15 12:28 [From Macrobid] nitrofurantoin Allergy Hives Verified 09/30/15 12:28 macrocrystalline [From Macrobid] Penicillins Allergy Hives Verified 09/30/15 12:28 propoxyphene napsylate Allergy Itching Verified 09/30/15 12:28 [From Darvocet-N] Sulfa (Sulfonamide AdvReac Swelling Verified 04/15/15 15:41 Antibiotics) ED Review of Systems ROS: Stated complaint: FEVER, MISSED DIALYSIS Other details as noted in HPI Constitutional: fever, malaise Eyes: denies: vision change ENT: denies: throat pain Respiratory: cough Cardiovascular: dyspnea on exertion (chronic) Gastrointestinal: abdominal pain Musculoskeletal: arthralgia, myalgia Skin: denies: lesions Neurological: weakness. denies: headache Psychiatric: anxiety ED Past Medical Hx - Past Medical History Previous Medical History?: Yes Hx Hypertension: Yes Hx Heart Attack/AMI: No Hx Congestive Heart Failure: Yes Hx Diabetes: No Hx GERD: Yes Hx Renal Disease: Yes (ON DIALYSIS, LAST DIALYSIS 07/19/2016) Hx Arthritis: Yes Hx Headaches / Migraines: Yes Hx Seizures: No Hx Kidney Stones: Yes Hx Asthma: Yes Hx COPD: No Additional medical history: Bone disease, dialysis t, th, sat. - Surgical History Past Surgical History?: Yes Hx Cholecystectomy: Yes Additional Surgical History: Screws in right foot, vascular access left arm for dialysis - Social History Smoking Status: Never Smoker - Medications Home Medications: Home Medications Medication Instructions Recorded Confirmed Last Taken Type ALPRAZolam [Xanax TAB] 0.5 mg PO BID PRN 04/15/15 07/20/16 07/19/16 History Folic Acid [Folvite] 1 mg PO QDAY 04/15/15 07/20/16 07/19/16 History Gabapentin [Neurontin] 300 mg PO BID 04/15/15 07/20/16 07/19/16 History Zolpidem [Ambien] 10 mg PO QHS 04/15/15 07/20/16 07/19/16 History amLODIPine [Norvasc] 5 mg PO DAILY 04/15/15 07/20/16 07/20/16 History cloNIDine [Catapres] 0.2 mg PO QDAY 04/15/15 07/20/16 07/20/16 History Cinacalcet [Sensipar] 60 mg PO QDAY 07/26/15 07/20/16 07/19/16 History Sevelamer Carbonate [Renvela] 800 mg PO TIDWM 07/26/15 07/20/16 07/19/16 History Clopidogrel Bisulfate [Plavix] 75 mg PO DAILY 05/04/16 07/20/16 07/05/16 History Coumadin 20 mg PO QDAY 07/04/16 07/20/16 07/05/16 History Carvedilol [Coreg] 12.5 mg PO QDAY 07/12/16 07/20/16 07/20/16 History HYDROcodone/APAP 10-325 [[place] 1 each PO Q4HR PRN 07/12/16 07/20/16 07/19/16 History 10/325] OXcarbazepine [Trileptal] 300 mg PO TID 07/12/16 07/20/16 07/19/16 History Omeprazole Magnesium [PriLOSEC Otc] 20 mg PO QDAY 07/12/16 07/20/16 07/19/16 History Tizanidine HCl [tiZANidine] 4 mg PO QHS 07/12/16 07/20/16 07/19/16 History Vit B Cplx #11/FA/C/Biot/Zn Ox 1 each PO QDAY 07/12/16 07/20/16 07/19/16 History [Dialyvite with Zinc Tablet] oxyCODONE [Roxicodone TAB] 5 mg PO Q6HR PRN #30 tablet 07/24/16 Unknown Rx ED Physical Exam - General Limitations: No Limitations General appearance: alert, in distress, obese - Head Head exam: Present: atraumatic, normocephalic - Eye Eye exam: Present: normal appearance, EOMI - ENT ENT exam: Present: normal exam, normal orophraynx, mucous membranes moist - Neck Neck exam: Present: normal inspection, full ROM. Absent: tenderness, meningismus - Respiratory Respiratory exam: Present: rhonchi. Absent: respiratory distress, wheezes, rales, stridor, chest wall tenderness, accessory muscle use, decreased breath sounds, prolonged expiratory - Cardiovascular Cardiovascular Exam: Present: normal rhythm, tachycardia, normal heart sounds. Absent: systolic murmur, diastolic murmur, rubs, gallop - GI/Abdominal GI/Abdominal exam: Present: soft, tenderness, normal bowel sounds. Absent: distended, guarding, rebound, rigid, pulsatile mass - Extremities Exam Extremities exam: Present: normal inspection, full ROM, normal capillary refill , pedal edema, other (left upper extremity AV fistula, appropriate throat, no redness, pus or streaking). Absent: tenderness, joint swelling, calf tenderness - Back Exam Back exam: Present: normal inspection, full ROM. Absent: tenderness, CVA tenderness (R), CVA tenderness (L), muscle spasm, paraspinal tenderness, vertebral tenderness - Neurological Exam Neurological exam: Present: alert, oriented X3, other (Extraocular movements intact. Tongue midline. No facial droop. Facial sensation intact to light touch in the V1, V2, V3 distribution bilaterally. 5 and 5 strength in 4 extremities.. Sensation is intact to light touch in 4 extremities.). Absent: motor sensory deficit - Psychiatric Psychiatric exam: Present: normal affect, normal mood - Skin Skin exam: Present: warm, dry, intact, normal color. Absent: rash ED Course Vital Signs 02/03/17 23:08 Temperature 101.1 F H Pulse Rate 118 H Respiratory 18 Rate Blood Pressure 191/94 O2 Sat by Pulse 100 Oximetry - Reevaluation(s) Reevaluation #1: 02/04/17 00:07 differential diagnosis: Pneumonia, urinary tract infection, intra -abdominal infection, end-stage renal disease on dialysis, volume overload, electrolyte derangement Assessment and plan: 66-year-old female with fever, tachycardia, verbal report from EMS that the patient is hypoxic on room air to 88%. Patient febrile and tachycardic, beats systemic inflammatory response syndrome criteria, however, also has a component of volume overload. The patient reports that she is allergic to aspirin. She also reports that she is allergic to acetaminophen. She further reports that she took Tylenol prior to arrival. X-ray the chest is pending. CT scan of the abdomen and pelvis is pending. Laboratory studies, blood cultures and lactic acid pending. We will reassess once all this has resulted. Reevaluation #2: 02/04/17 00:41 CT scan suggests cystitis. Given fever and tachycardia, patient does meet systemic inflammatory response syndrome criteria. She reports that she cannot tolerate fluoroquinolones or penicillins, as she gets throat swelling. She reports that she gets itching with acetaminophen, but no anaphylaxis. She reports swelling with aspirin, but is not certain if she is ever had ibuprofen or Motrin. Given this, the patient will be treated with fosfomycin. Currently waiting laboratory studies to result. Acetaminophen is ordered. 02/04/17 01:04 Reevaluation #3: 02/04/17 00:53 Laboratory studies indicate hyperkalemia with potassium of 6.7 and metabolic acidosis. Patient also markedly hypertensive. Medical management for hyperkalemia is ordered. Hydralazine is ordered. The patient's gear design engineer has been paged. The Hospital physician has been paged to arrange admission. Reevaluation #4: 02/04/17 01:02 Case is discussed with the patient's private gear design engineer, Dr. Moreno He recommends not giving any IV fluid as he states that the patient is volume overloaded. He recommends 60 mg of Lasix, medical management for hyperkalemia. He does understand that the patient meets systemic inflammatory response syndrome/sepsis criteria. Given that the patient was hypoxic upon arrival with a room air saturation of 88%, and require supplemental oxygen, I agree with him , I do not feel like it is in the patient's best interest to receive additional IV fluids. He reports that the patient will get dialysis in the morning. The case is presented to the Hospital physician, Dr. Chambers, who accepts the patient to her service. ED Medical Decision Making - Lab Data Result diagrams: 02/04/17 00:15 02/04/17 00:15 Vital Signs 02/03/17 23:08 Temperature 101.1 F H Pulse Rate 118 H Respiratory 18 Rate Blood Pressure 191/94 O2 Sat by Pulse 100 Oximetry - EKG Data -: EKG Interpreted by Me Rate: tachycardia - EKG Data 02/04/17 01:04 Sinus tachycardia, 114 bpm, borderline left ventricular hypertrophy, QTC 468 ms , nonspecific intraventricular conduction delay, not morphologically consistent with STEMI - Radiology Data Radiology results: pending, report reviewed, image reviewed interpreted by me: X-ray of the chest demonstrates cardiomegaly, pulmonary vascular congestion. Noncontrast CT scan of the abdomen and pelvis demonstrates nonspecific linear densities at the lung bases, septal thickening concerning for mild congestion. Cardiomegaly is noted. The gallbladder surgically absent. There is atrophy of the bilateral kidneys. Wall thickening and mild dilatation of the renal pelvis bilaterally, the ureters are decompressed. There is a nonobstructing right-sided 5 mm right renal calculus. There is mild wall thickening and fat stranding at the margin of the urinary bladder. Large and small bowel loops are normal. The appendix is normal. DJD of the spine is noted. Critical care attestation.: If time is entered above; I have spent that time in minutes in the direct care of this critically ill patient, excluding procedure time. ED Disposition Clinical Impression: ESRD (end stage renal disease) on dialysis, HTN (hypertension), SIRS (systemic inflammatory response syndrome), Hyperkalemia, Metabolic acidosis Disposition: OP ADMIT IP TO THIS HOSP Is pt being admited?: Yes Condition: Fair Instructions: Hypertension (ED) Referrals: PRIMARY CARE, [Primary Care Provider] - 3-5 Days
--- NOTE | 2017-02-04 00:30 | Cat Scan Report ---
FINAL REPORT EXAM: CT ABDOMEN PELVIS WO CON HISTORY: abd pain fever COMPARISON: CT of the abdomen pelvis January 07, 2016. TECHNIQUE: Contiguous axial images were obtained. Additional sagittal and coronal reformatted images were obtained. FINDINGS: Nonspecific linear densities at the lung bases and septal thickening concerning for mild congestion. Heart mildly enlarged. Gallbladder is not visualized appears to be surgically absent. Borderline enlargement of the liver measuring 23 centimeters. Spleen and pancreas are unremarkable. No adrenal mass. Nodular thickening of adrenal glands. Atrophy of the bilateral kidneys. Wall thickening mild dilatation renal pelves bilaterally which may relate to sequelae of prior inflammation. Ureters are relatively decompressed. 5 millimeter nonobstructive right renal calculus. No ureteral urinary bladder calculi. Mild wall thickening and fat stranding at the margin the urinary bladder. Uterus is surgically absent. Ovaries are not visualized may be surgically absent. Large and small bowel loops normal in caliber. The appendix is normal in caliber measuring 5-6 millimeters in diameter. Bony pelvis and lumbar spine are grossly intact. Mild to moderate degenerative changes of lumbar spine. IMPRESSION: Wall thickening and fat stranding at the margin the urinary bladder concerning for cystitis. Wall thickening and mild dilatation of the renal pelves bilaterally which may relate to sequelae of prior inflammation. Similar findings seen on the prior study. Mild active superimposed infection cannot be excluded. Stable atrophy of the bilateral kidneys. Stable nonobstructive right renal calculus. Probable mild edema at the lung bases. No other gross acute findings.
[2017-02-04] MEDS ORDERED: MONUROL PO ONE (00:40)
[2017-02-04] MEDS ORDERED: TYLENOL PO ONE (00:41)
[2017-02-04] MEDS ORDERED: NACL 0.9% 250ML 250 ML IV ONE (00:42)
[2017-02-04 00:45] LABS: Albumin 3.4 g/dL (3.9-5); Albumin/Globulin Ratio 0.8 %; BUN/Creatinine Ratio 8.88; Bilirubin,Total 0.6 mg/dL (0.1-1.2); Calcium 8.8 mg/dL (8.4-10.2); Chloride 93.5 mmol/L (98-107); Total Protein 7.7 g/dL (6.3-8.2)
[2017-02-04 00:49] LABS: Basophils % (Auto) 0.4 % (0.0-1.8); Eosinophils % (Auto) 0.1 % (0.0-4.3); Hematocrit 34.5 % (30.3-42.9); Mean Corpuscular HGB Conc 32 % (30-34); Mean Corpuscular Hemoglobin 32 pg (28-32); Mean Corpuscular Volume 101 fl (79-97); Platelet Count 210 K/mm3 (140-440); Red Blood Count 3.41 M/mm3 (3.65-5.03); White Blood Count 12.9 K/mm3 (4.5-11.0)
[2017-02-04 00:51] LABS: Potassium 6.7 mmol/L (3.6-5.0)
[2017-02-04] MEDS ORDERED: APRESOLINE IV ONE (00:51)
[2017-02-04] MEDS ORDERED: KIONEX PO ONE (00:52)
[2017-02-04] MEDS ORDERED: PROVENTIL IH ONE ×2 (00:52→03:00)
[2017-02-04] MEDS ORDERED: SODIUM BICARBONATE IV ONE (00:52)
[2017-02-04] MEDS ORDERED: D50W (25GM) IV ONE (00:52)
[2017-02-04 00:54] LABS: Red Cell Distribution Width 20.4 % (13.2-15.2)
[2017-02-04 00:59] LABS: INR 1.15 (0.87-1.13)
[2017-02-04] MEDS ORDERED: LASIX IV ONE (01:02)
[2017-02-04 01:34] LABS: Bilirubin,Urine NEG (Negative); Blood,Urine SM (Negative); Ketones,Urine NEG (Negative); Leukocyte Esterase,Urine LG (Negative); Nitrite,Urine NEG (Negative); Urobilinogen,Urine < 2.0 mg/dL (<2.0)
[2017-02-04 01:49] LABS: WBC,Urine > 182.0 /HPF (0.0-6.0)
[2017-02-04] MEDS ORDERED: DULCOLAX PR PRN (02:50)
--- NOTE | 2017-02-04 02:52 | History and Physical Report ---
History of Present Illness Date of examination: 02/04/17 History of present illness: 66-year-old woman with a history of end-stage renal disease on dialysis Sunday , , Sunday, hypertension, hyperlipidemia comes emergency room complaining of shortness of breath, generalized weakness and diffuse abdominal cramping. Patient missed 2 dialysis sessions Patient denies chest pain, palpitation,cough, hematochezia, dysuria, frequency , focal weakness, dysarthria, fever chills, polydipsia polyuria, hot or cold intolerance, easy bruisability, or rash or bleeding from mucosal membrane, rhinorrhea, epistaxis, earache, tinnitus, blurry vision, eye discharge, anxiety , depression. Other review of systems negative PAST SURGICAL HISTORY: Cholecystectomy, carpal tunnel release, hysterectomy, foot surgery SOCIAL HISTORY: Denies alcohol, tobacco, drugs FAMILY HISTORY: Hypertension Medications and Allergies Allergies Allergy/AdvReac Type Severity Reaction Status Date / Time acetaminophen Allergy Itching Verified 09/30/15 12:28 [From Darvocet-N] aspirin Allergy Anaphylaxis Verified 12/06/15 09:24 ciprofloxacin Allergy Hives Verified 09/30/15 12:28 ketorolac tromethamine Allergy Hives Verified 09/30/15 12:28 [From Toradol] lorazepam [From Ativan] Allergy Itching Verified 12/06/15 09:25 nifedipine [From Procardia] Allergy Swelling Verified 09/30/15 12:28 OF THROAT nitrofurantoin Allergy Hives Verified 09/30/15 12:28 [From Macrobid] nitrofurantoin Allergy Hives Verified 09/30/15 12:28 macrocrystalline [From Macrobid] Penicillins Allergy Hives Verified 09/30/15 12:28 propoxyphene napsylate Allergy Itching Verified 09/30/15 12:28 [From Darvocet-N] Sulfa (Sulfonamide AdvReac Swelling Verified 04/15/15 15:41 Antibiotics) Home Medications Medication Instructions Recorded Confirmed Last Taken Type ALPRAZolam [Xanax TAB] 0.5 mg PO BID PRN 04/15/15 07/20/16 07/19/16 History Folic Acid [Folvite] 1 mg PO QDAY 04/15/15 07/20/16 07/19/16 History Gabapentin [Neurontin] 300 mg PO BID 04/15/15 07/20/16 07/19/16 History Zolpidem [Ambien] 10 mg PO QHS 04/15/15 07/20/16 07/19/16 History amLODIPine [Norvasc] 5 mg PO DAILY 04/15/15 07/20/16 07/20/16 History cloNIDine [Catapres] 0.2 mg PO QDAY 04/15/15 07/20/16 07/20/16 History Cinacalcet [Sensipar] 60 mg PO QDAY 07/26/15 07/20/16 07/19/16 History Sevelamer Carbonate [Renvela] 800 mg PO TIDWM 07/26/15 07/20/16 07/19/16 History Clopidogrel Bisulfate [Plavix] 75 mg PO DAILY 05/04/16 07/20/16 07/05/16 History Coumadin 20 mg PO QDAY 07/04/16 07/20/16 07/05/16 History Carvedilol [Coreg] 12.5 mg PO QDAY 07/12/16 07/20/16 07/20/16 History HYDROcodone/APAP 10-325 [[place] 1 each PO Q4HR PRN 07/12/16 07/20/16 07/19/16 History 10/325] OXcarbazepine [Trileptal] 300 mg PO TID 07/12/16 07/20/16 07/19/16 History Omeprazole Magnesium [PriLOSEC Otc] 20 mg PO QDAY 07/12/16 07/20/16 07/19/16 History Tizanidine HCl [tiZANidine] 4 mg PO QHS 07/12/16 07/20/16 07/19/16 History Vit B Cplx #11/FA/C/Biot/Zn Ox 1 each PO QDAY 07/12/16 07/20/16 07/19/16 History [Dialyvite with Zinc Tablet] oxyCODONE [Roxicodone TAB] 5 mg PO Q6HR PRN #30 tablet 07/24/16 Unknown Rx Exam - Physical Exam Narrative exam: Gen. appearance: Patient lying in bed, no apparent distress HEENT: Normocephalic, atraumatic, pupils equally round and reactive to light, extraocular movement intact, and no sclericterus,. No JVD or thyromegaly or nodule,neck supple, no carotid bruit ,mucous membranes moist, no exudate or erythema Heart: S1, S2, regular rate and rhythm Lungs: Crackles bilaterally, breathing comfortable Abdomen: Positive bowel sounds, nontender, nondistended, no organomegaly Extremity: No edema, cyanosis, clubbing Skin: No rash, nodules, warm, dry Neuro: Oriented 3, cranial nerves II-12 intact, speech is fluent, motor and sensory intact - Constitutional Vitals: Temp Pulse Resp BP Pulse Ox 101.1 F H 118 H 18 191/94 100 02/03/17 23:08 02/03/17 23:08 02/04/17 02:49 02/03/17 23:08 02/03/17 23:08 Results - Labs CBC & Chem 7: 02/04/17 00:15 02/04/17 17:47 Labs: Abnormal lab results 02/04/17 02/04/17 02/04/17 Range/Units 00:15 00:15 00:15 WBC 12.9 H (4.5-11.0) K/mm3 RBC 3.41 L (3.65-5.03) M/mm3 MCV 101 H (79-97) fl RDW 20.4 H (13.2-15.2) % Lymph % (Auto) 6.5 L (13.4-35.0) % Lymph # 0.8 L (1.2-5.4) K/mm3 Seg Neutrophils % 87.8 H (40.0-70.0) % Seg Neutrophils # 11.3 H (1.8-7.7) K/mm3 INR 1.15 H (0.87-1.13) Sodium 133 L (137-145) mmol/L Potassium 6.7 H* (3.6-5.0) mmol/L Chloride 93.5 L (98-107) mmol/L Carbon Dioxide 16 L (22-30) mmol/L BUN 96 H (7-17) mg/dL Creatinine 10.8 H (0.7-1.2) mg/dL Glucose 139 H (65-100) mg/dL POC Glucose (70-105) NT-Pro-B Natriuret Pep (0-900) pg/mL Albumin 3.4 L (3.9-5) g/dL Urine WBC (Auto) (0.0-6.0) /HPF 02/04/17 02/04/17 02/04/17 Range/Units 00:15 00:30 01:25 WBC (4.5-11.0) K/mm3 RBC (3.65-5.03) M/mm3 MCV (79-97) fl RDW (13.2-15.2) % Lymph % (Auto) (13.4-35.0) % Lymph # (1.2-5.4) K/mm3 Seg Neutrophils % (40.0-70.0) % Seg Neutrophils # (1.8-7.7) K/mm3 INR (0.87-1.13) Sodium (137-145) mmol/L Potassium (3.6-5.0) mmol/L Chloride (98-107) mmol/L Carbon Dioxide (22-30) mmol/L BUN (7-17) mg/dL Creatinine (0.7-1.2) mg/dL Glucose (65-100) mg/dL POC Glucose 129 H (70-105) NT-Pro-B Natriuret Pep > 12774 H (0-900) pg/mL Albumin (3.9-5) g/dL Urine WBC (Auto) > 182.0 H (0.0-6.0) /HPF - Imaging and Cardiology EKG: image reviewed Chest x-ray: image reviewed CT scan - abdomen: report reviewed CT scan - pelvis: report reviewed Assessment and Plan fluid overload secondary to missed dialysis End-stage renal disease on dialysis Hyperkalemia Abdominal pain nonspecific probably secondary to #1 Hypertension Hyperlipidemia Admit to medicine Consult renal for stat dialysis Status post Kayexalate, check cardiac enzymes, start IV Rocephin Start IV hydralazine as needed for blood pressure control Continue appropriate outpatient medication, start DVT prophylaxis
[2017-02-04] MEDS: MORPHINE IV PRN ×4 (03:57→23:41)
[2017-02-04] MEDS: ZOFRAN IV PRN (03:58)
[2017-02-04] MEDS ORDERED: NACL 0.9% 100 ML IV PRN (06:49)
--- NOTE | 2017-02-04 07:00 | Consultation ---
History of Present Illness - Reason for Consult Consult date: 02/04/17 end stage renal disease, hyperkalemia, metabolic acidosis Requesting physician: DEENA VOSS - History of Present Illness This is a 66 year old female with PMH of ESRD on HD, hypertension, secondary hyperparathyroidism, on coumadin (not sure why she takes it), and anxiety who presented to [facility] today with complaints of shortness of breath, fatigue, generalized weakness, abdominal pain, and fever. Patient reports having diarrhea this morning. Patient reports having worsening shortness of breath, states she still voids, but small quantity of urine. Status post CT Abdomen without contrast today concerning for cystitis, probable mild edema at lung bases, non-obstructive right renal calculus. Chest X Ray reading pending. Pro- BNP was >35,000. On admission, serum potassium was 6.7, s/p kayexalate, IV insulin/IV D50, amp of sodium bicarbonate, and IV Lasix. Urine analysis suggestive of UTI, urine culture pending. We were consulted to evaluate this patient who has ESRD and requires HD and renal management. This patient undergoes outpatient HD at [facility] every Sunday, , and Sunday. Patient missed her last two dialysis treatments. Last HD treatment was on 01/30/17. Ordered STAT Hemodialysis for ultrafiltration and clearance. Patient seen in the ED, no acute distress. No family at bedside. Past History Past Medical History: anemia, dialysis, ESRD, other (anxiety) Past Surgical History: cholecystectomy, hysterectomy, Other (Left AV Fistula placement) Medications and Allergies Allergies Allergy/AdvReac Type Severity Reaction Status Date / Time acetaminophen Allergy Itching Verified 09/30/15 12:28 [From Darvocet-N] aspirin Allergy Anaphylaxis Verified 12/06/15 09:24 ciprofloxacin Allergy Hives Verified 09/30/15 12:28 ketorolac tromethamine Allergy Hives Verified 09/30/15 12:28 [From Toradol] lorazepam [From Ativan] Allergy Itching Verified 12/06/15 09:25 nifedipine [From Procardia] Allergy Swelling Verified 09/30/15 12:28 OF THROAT nitrofurantoin Allergy Hives Verified 09/30/15 12:28 [From Macrobid] nitrofurantoin Allergy Hives Verified 09/30/15 12:28 macrocrystalline [From Macrobid] Penicillins Allergy Hives Verified 09/30/15 12:28 propoxyphene napsylate Allergy Itching Verified 09/30/15 12:28 [From Martyt-N] Sulfa (Sulfonamide AdvReac Swelling Verified 04/15/15 15:41 Antibiotics) Home Medications Medication Instructions Recorded Confirmed Last Taken Type ALPRAZolam [Xanax TAB] 0.5 mg PO BID PRN 04/15/15 07/20/16 07/19/16 History Folic Acid [Folvite] 1 mg PO QDAY 04/15/15 07/20/16 07/19/16 History Gabapentin [Neurontin] 300 mg PO BID 04/15/15 07/20/16 07/19/16 History Zolpidem [Ambien] 10 mg PO QHS 04/15/15 07/20/16 07/19/16 History amLODIPine [Norvasc] 5 mg PO DAILY 04/15/15 07/20/16 07/20/16 History cloNIDine [Catapres] 0.2 mg PO QDAY 04/15/15 07/20/16 07/20/16 History Cinacalcet [Sensipar] 60 mg PO QDAY 07/26/15 07/20/16 07/19/16 History Sevelamer Carbonate [Renvela] 800 mg PO TIDWM 07/26/15 07/20/16 07/19/16 History Clopidogrel Bisulfate [Plavix] 75 mg PO DAILY 05/04/16 07/20/16 07/05/16 History Coumadin 20 mg PO QDAY 07/04/16 07/20/16 07/05/16 History Carvedilol [Coreg] 12.5 mg PO QDAY 07/12/16 07/20/16 07/20/16 History HYDROcodone/APAP 10-325 [[place] 1 each PO Q4HR PRN 07/12/16 07/20/16 07/19/16 History 10/325] OXcarbazepine [Trileptal] 300 mg PO TID 07/12/16 07/20/16 07/19/16 History Omeprazole Magnesium [PriLOSEC Otc] 20 mg PO QDAY 07/12/16 07/20/16 07/19/16 History Tizanidine HCl [tiZANidine] 4 mg PO QHS 07/12/16 07/20/16 07/19/16 History Vit B Cplx #11/FA/C/Biot/Zn Ox 1 each PO QDAY 07/12/16 07/20/16 07/19/16 History [Dialyvite with Zinc Tablet] oxyCODONE [Roxicodone TAB] 5 mg PO Q6HR PRN #30 tablet 07/24/16 Unknown Rx Active Meds: Active Medications Bisacodyl (Dulcolax) 10 mg NC QDAY PRN PRN Reason: Constipation unrelieved by [facility] [place] Doxycycline Hyclate (Vibramycin) 100 mg PO BID INDIO Enoxaparin Sodium (Lovenox) 30 mg SUB-Q QDAY INDIO Sodium Chloride (Nacl 0.9%) 100 mls @ 999 mls/hr IV MIGUEL ÁNGEL PRN PRN Reason: Hypotension Morphine Sulfate (Morphine) 2 mg IV Q4H PRN PRN Reason: Pain , Severe (7-10) Last Admin: 02/04/17 03:57 Dose: 2 mg Ondansetron HCl (Zofran) 4 mg IV Q8H PRN PRN Reason: N/V unrelieved by Reglan Last Admin: 02/04/17 03:58 Dose: 4 mg Review of Systems Constitutional: fever, fatigue, weakness Ears, nose, mouth and throat: no epistaxis, no dysphagia, no headache Cardiovascular: shortness of breath, dyspnea on exertion, high blood pressure, leg edema, no chest pain Respiratory: shortness of breath, dyspnea on exertion, no cough, no hemoptysis, no wheezing, no home oxygen Gastrointestinal: abdominal pain, diarrhea, no nausea, no vomiting, no constipation, no hematemesis, no melena Genitourinary Female: no dysuria, no hematuria Musculoskeletal: no arm numbness/tingling, no leg numbness/tingling Integumentary: no sores, no wounds Neurological: no numbness, no tingling, no seizures, no syncope, no headaches, no change in speech, no loss of vision Psychiatric: anxiety, no depression Endocrine: fatigue Exam - Vital Signs Vital signs: Vital Signs Temp Pulse Resp BP Pulse Ox 101.1 F H 118 H 18 191/94 100 02/03/17 23:08 02/03/17 23:08 02/03/17 23:08 02/03/17 23:08 02/03/17 23:08 - General Appearance General appearance: well-developed (laying in bed in ED, on oxygen, no acute distress) EENT: ATNC Neck: Present: neck supple Respiratory: Other (Lung sounds coarse bilaterally, unlabored) Heart: tachycardia, S1S2, other (ACCESS: Left AVF with positive thrill and bruit noted) Gastrointestinal: Present: normoactive bowel sounds, tenderness Integumentary: warm and dry Neurologic: alert and oriented x3 Musculoskeletal: Present: other (1+ edema to both lower extremities) Psychiatric: mood/affect appropriate, cooperative Results - Lab Results 02/04/17 00:15 02/04/17 00:15 Most recent lab results Calcium 8.8 mg/dL (8.4-10.2) 02/04/17 00:15 Assessment and Plan - Patient Problems (1) Hyperkalemia Current Visit: Yes Status: Acute Plan to address problem: STAT Hemodialysis today for ultrafiltration and clearance HD prescription adjusted to [facility] [place] for hyperkalemia management Repeat BMP at 1700 post HD Status post kayexalate 30 g orally x 1 dose, 1 amp of sodium bicarbonate, insulin 8 units IV, 1 amp D50, and Lasix 60 mg IV x 1 dose in the ED (2) ESRD (end stage renal disease) on dialysis Current Visit: Yes Status: Chronic Plan to address problem: STAT Hemodialysis today for ultrafiltration and clearance via Left AVF HD prescription adjusted to [facility] [place] for hyperkalemia management Assess need for HD on daily basis No indication for Epogen dosing during HD given Hgb level of 11.0 Renally dose medications Repeat BMP at 1700 post HD Urine analysis suggestive of UTI Currently on doxycycline 100 mg orally twice a day Blood and urine cultures pending Renal diet Maintain fluid restriction of 1 liter per day This patient undergoes outpatient HD at [facility] every Sunday, , and Sunday. Last HD treatment was 01/30/17 Obtain daily weight Strict intake and output Renal plan discussed with Dr Mari Continue supportive therapy (3) Hypertensive kidney disease with ESRD on dialysis Current Visit: Yes Status: Acute Plan to address problem: Obtain home medications and resume home blood pressure medications as appropriate (4) Metabolic acidosis Current Visit: Yes Status: Acute Plan to address problem: Hemodialysis today for ultrafiltration and clearance (5) Hyponatremia Current Visit: Yes Status: Acute Plan to address problem: Suspect secondary to hypervolemic hyponatremia in setting of volume overload Repeat BMP at 1700 post HD today
[2017-02-04 08:47] LABS: Creatine Kinase MB 3.5 ng/mL (0.0-4.0)
[2017-02-04] MEDS: LOVENOX SUB-Q SCH (09:21)
[2017-02-04] MEDS: VIBRAMYCIN PO SCH ×2 (09:21→21:47)
--- NOTE | 2017-02-04 09:41 | XRay Report ---
AP CHEST: HISTORY: Sepsis Mild cardiomegaly and pulmonary venous congestion have developed since 01/07/16. No consolidation, large pleural effusion or pneumothorax is appreciated. The left IJ dialysis catheter has been removed. IMPRESSION: Mild volume overload.
--- NOTE | 2017-02-04 11:53 | Progress Note ---
Assessment and Plan Assessment and plan: Sepsis. Patient meets criteria given the leukocytosis and fever. Patient was placed on sepsis pathway and treated with IV antibiotics. Follow-up blood cultures and lactic acid levels. ESRD. Patient on hemodialysis Sunday, and Sunday. However, patient missed her last 2 scheduled hemodialysis. Continue/resume hemodialysis per nephrology. Volume overload. Etiology secondary to her missed hemodialysis as noted above. BMP greater than 35,000. Hyperkalemia. Patient received Kayexalate and is scheduled for hemodialysis. Hypertension. Resume her home antihypertensive medications. Hyperlipidemia. Acute cystitis. Urinalysis reveals greater than 182 WBCs. Continue IV antibiotics as noted above. Abdominal pain. Etiology likely secondary to cystitis. History Interval history: 66-year-old woman with a history of end-stage renal disease on dialysis Sunday , , Sunday, hypertension, hyperlipidemia comes emergency room complaining of shortness of breath, generalized weakness and diffuse abdominal cramping. Patient with 2 missed dialysis sessions prior to admission. Patient also reports fever at home. Hospitalist Physical - Constitutional Vitals: Temp Pulse Resp BP Pulse Ox 99.3 F 110 H 16 168/86 100 02/04/17 09:24 02/04/17 09:24 02/04/17 09:24 02/04/17 09:24 02/04/17 09:24 General appearance: Present: no acute distress, well-nourished - EENT Eyes: Present: PERRL, EOM intact ENT: hearing intact, clear oral mucosa, dentition normal - Neck Neck: Present: supple, normal ROM - Respiratory Respiratory effort: normal Respiratory: bilateral: CTA - Cardiovascular Rhythm: regular Heart Sounds: Present: S1 & S2. Absent: gallop, rub - Extremities Extremities: no ischemia, No edema, Full ROM - Abdominal General gastrointestinal: soft, non-tender, non-distended, normal bowel sounds - Integumentary Integumentary: Present: clear, warm, dry - Neurologic Neurologic: CNII-XII intact, moves all extremities Results - Labs CBC & Chem 7: 02/04/17 00:15 02/04/17 00:15 Labs: Laboratory Last Values WBC 12.9 K/mm3 (4.5-11.0) H 02/04/17 00:15 RBC 3.41 M/mm3 (3.65-5.03) L 02/04/17 00:15 Hgb 11.0 gm/dl (10.1-14.3) 02/04/17 00:15 Hct 34.5 % (30.3-42.9) 02/04/17 00:15 MCV 101 fl (79-97) H 02/04/17 00:15 MCH 32 pg (28-32) 02/04/17 00:15 MCHC 32 % (30-34) 02/04/17 00:15 RDW 20.4 % (13.2-15.2) H 02/04/17 00:15 Plt Count 210 K/mm3 (140-440) 02/04/17 00:15 Lymph % (Auto) 6.5 % (13.4-35.0) L 02/04/17 00:15 [place] % (Auto) 5.2 % (0.0-7.3) 02/04/17 00:15 Eos % (Auto) 0.1 % (0.0-4.3) 02/04/17 00:15 Baso % (Auto) 0.4 % (0.0-1.8) 02/04/17 00:15 Lymph # 0.8 K/mm3 (1.2-5.4) L 02/04/17 00:15 [place] # 0.7 K/mm3 (0.0-0.8) 02/04/17 00:15 Eos # 0.0 K/mm3 (0.0-0.4) 02/04/17 00:15 Baso # 0.1 K/mm3 (0.0-0.1) 02/04/17 00:15 Seg Neutrophils % 87.8 % (40.0-70.0) H 02/04/17 00:15 Seg Neutrophils # 11.3 K/mm3 (1.8-7.7) H 02/04/17 00:15 PT 14.6 Sec. (12.2-14.9) 02/04/17 00:15 INR 1.15 (0.87-1.13) H 02/04/17 00:15 VBG pH 7.330 (7.320-7.420) 02/03/17 00:15 Sodium 133 mmol/L (137-145) L 02/04/17 00:15 Potassium 6.7 mmol/L (3.6-5.0) H* 02/04/17 00:15 Chloride 93.5 mmol/L (98-107) L 02/04/17 00:15 Carbon Dioxide 16 mmol/L (22-30) L 02/04/17 00:15 Anion Gap 30 mmol/L 02/04/17 00:15 BUN 96 mg/dL (7-17) H 02/04/17 00:15 Creatinine 10.8 mg/dL (0.7-1.2) H 02/04/17 00:15 Estimated GFR 4 ml/min 02/04/17 00:15 BUN/Creatinine Ratio 8.88 % 02/04/17 00:15 Glucose 139 mg/dL (65-100) H 02/04/17 00:15 POC Glucose 129 (70-105) H 02/04/17 01:25 Lactic Acid 1.70 mmol/L (0.7-2.0) 02/04/17 10:11 Calcium 8.8 mg/dL (8.4-10.2) 02/04/17 00:15 Total Bilirubin 0.60 mg/dL (0.1-1.2) 02/04/17 00:15 AST 12 units/L (5-40) 02/04/17 00:15 ALT 17 units/L (7-56) 02/04/17 00:15 Alkaline Phosphatase 85 units/L (35-129) 02/04/17 00:15 Total Creatine Kinase 36 units/L (30-135) 02/04/17 08:09 CK-MB (CK-2) 3.5 ng/mL (0.0-4.0) 02/04/17 08:09 CK-MB (CK-2) Rel Index 9.7 (0-4) H 02/04/17 08:09 Troponin T 0.222 ng/mL (0.00-0.029) H* 02/04/17 08:09 NT-Pro-B Natriuret Pep > 61518 pg/mL (0-900) H 02/04/17 00:15 Total Protein 7.7 g/dL (6.3-8.2) 02/04/17 00:15 Albumin 3.4 g/dL (3.9-5) L 02/04/17 00:15 Albumin/Globulin Ratio 0.8 % 02/04/17 00:15 Triglycerides 132 mg/dL (2-149) 02/04/17 08:09 Cholesterol 154 mg/dL (50-199) 02/04/17 08:09 LDL Cholesterol Direct 90 mg/dL (50-130) 02/04/17 08:09 HDL Cholesterol 38 mg/dL (40-59) L 02/04/17 08:09 Cholesterol/HDL Ratio 4.05 % 02/04/17 08:09 Urine Color Yellow (Yellow) 02/04/17 00:30 Urine Turbidity Cloudy (Clear) 02/04/17 00:30 Urine pH 7.0 (5.0-7.0) 02/04/17 00:30 Ur Specific [place] 1.011 (1.003-1.030) 02/04/17 00:30 Urine Protein 100 mg/dl mg/dL (Negative) 02/04/17 00:30 Urine Glucose (UA) Neg mg/dL (Negative) 02/04/17 00:30 Urine Ketones Neg mg/dL (Negative) 02/04/17 00:30 Urine Blood Sm (Negative) 02/04/17 00:30 Urine Nitrite Neg (Negative) 02/04/17 00:30 Urine Bilirubin Neg (Negative) 02/04/17 00:30 Urine Urobilinogen < 2.0 mg/dL (<2.0) 02/04/17 00:30 Ur Leukocyte Esterase Lg (Negative) 02/04/17 00:30 Urine WBC (Auto) > 182.0 /HPF (0.0-6.0) H 02/04/17 00:30 Urine RBC (Auto) 5.0 /HPF (0.0-6.0) 02/04/17 00:30
[2017-02-04] MEDS ORDERED: MORPHINE IV ONE (12:39)
[2017-02-04 13:39] LABS: Creatine Kinase MB 3.5 ng/mL (0.0-4.0)
[2017-02-04] MEDS ORDERED: NACL 0.9 (PRIMING MACHINE ONLY DIALYSIS) MC ONE (18:15)
[2017-02-04 18:23] LABS: BUN/Creatinine Ratio 5.73; Chloride 90.2 mmol/L (98-107); Magnesium 1.9 mg/dL (1.7-2.3); Phosphorous 5.4 mg/dL (2.5-4.5)
[2017-02-04 18:37] LABS: Potassium 5.9 mmol/L (3.6-5.0)
[2017-02-05] MEDS: AMBIEN PO PRN ×2 (01:30→23:57)
[2017-02-05 08:04] LABS: Basophils % (Auto) 1.1 % (0.0-1.8); Eosinophils % (Auto) 2.8 % (0.0-4.3); Hematocrit 37.9 % (30.3-42.9); Hemoglobin 12.3 gm/dl (10.1-14.3); Mean Corpuscular HGB Conc 33 % (30-34); Mean Corpuscular Hemoglobin 32 pg (28-32); Mean Corpuscular Volume 99 fl (79-97); Platelet Count 194 K/mm3 (140-440); Red Blood Count 3.82 M/mm3 (3.65-5.03); White Blood Count 6.5 K/mm3 (4.5-11.0)
[2017-02-05 08:13] LABS: Red Cell Distribution Width 20.3 % (13.2-15.2)
[2017-02-05 08:22] LABS: BUN/Creatinine Ratio 5.75; Calcium 9.4 mg/dL (8.4-10.2); Chloride 94.1 mmol/L (98-107); Potassium 4.9 mmol/L (3.6-5.0)
--- NOTE | 2017-02-05 10:34 | Progress Note ---
Assessment and Plan Assessment and plan: Sepsis. Patient meets criteria given the leukocytosis and fever. Continue sepsis pathway and IV antibiotics. Follow-up blood cultures and lactic acid levels. ESRD. Patient on hemodialysis Sunday, and Sunday. However, patient missed her last 2 scheduled hemodialysis prior to admission. Continue/ resume hemodialysis per nephrology. Volume overload. Etiology secondary to her missed hemodialysis as noted above. BMP greater than 35,000 on admission. Hyperkalemia. Resolved. s/p Kayexalate and hemodialysis. Hypertension. Continue home antihypertensive medications. Hyperlipidemia. Acute cystitis. Urinalysis reveals greater than 182 WBCs. Continue IV antibiotics as noted above. Abdominal pain. Improved. Etiology likely secondary to cystitis. DVT prophylaxis. Lovenox daily. History Interval history: 66-year-old woman with a history of end-stage renal disease on dialysis Sunday , , Sunday, hypertension, hyperlipidemia comes emergency room complaining of shortness of breath, generalized weakness and diffuse abdominal cramping. Patient with 2 missed dialysis sessions prior to admission. Patient also reports fever at home. Hospitalist Physical - Constitutional Vitals: Temp Pulse Resp BP Pulse Ox 98.4 F 86 18 154/73 100 02/05/17 07:55 02/05/17 07:55 02/05/17 07:55 02/05/17 07:55 02/05/17 04:10 General appearance: Present: no acute distress, well-nourished - EENT Eyes: Present: PERRL, EOM intact ENT: hearing intact, clear oral mucosa, dentition normal - Neck Neck: Present: supple, normal ROM - Respiratory Respiratory effort: normal Respiratory: bilateral: CTA - Cardiovascular Rhythm: regular Heart Sounds: Present: S1 & S2. Absent: gallop, rub - Extremities Extremities: no ischemia, No edema, Full ROM - Abdominal General gastrointestinal: soft, non-tender, non-distended, normal bowel sounds - Integumentary Integumentary: Present: clear, warm, dry - Neurologic Neurologic: CNII-XII intact, moves all extremities Results - Labs CBC & Chem 7: 02/05/17 07:20 02/05/17 07:20 Labs: Laboratory Last Values WBC 6.5 K/mm3 (4.5-11.0) 02/05/17 07:20 RBC 3.82 M/mm3 (3.65-5.03) 02/05/17 07:20 Hgb 12.3 gm/dl (10.1-14.3) 02/05/17 07:20 Hct 37.9 % (30.3-42.9) 02/05/17 07:20 MCV 99 fl (79-97) H 02/05/17 07:20 MCH 32 pg (28-32) 02/05/17 07:20 MCHC 33 % (30-34) 02/05/17 07:20 RDW 20.3 % (13.2-15.2) H 02/05/17 07:20 Plt Count 194 K/mm3 (140-440) 02/05/17 07:20 Lymph % (Auto) 20.9 % (13.4-35.0) 02/05/17 07:20 [place] % (Auto) 9.5 % (0.0-7.3) H 02/05/17 07:20 Eos % (Auto) 2.8 % (0.0-4.3) 02/05/17 07:20 Baso % (Auto) 1.1 % (0.0-1.8) 02/05/17 07:20 Lymph # 1.4 K/mm3 (1.2-5.4) 02/05/17 07:20 [place] # 0.6 K/mm3 (0.0-0.8) 02/05/17 07:20 Eos # 0.2 K/mm3 (0.0-0.4) 02/05/17 07:20 Baso # 0.1 K/mm3 (0.0-0.1) 02/05/17 07:20 Seg Neutrophils % 65.7 % (40.0-70.0) 02/05/17 07:20 Seg Neutrophils # 4.3 K/mm3 (1.8-7.7) 02/05/17 07:20 PT 14.6 Sec. (12.2-14.9) 02/04/17 00:15 INR 1.15 (0.87-1.13) H 02/04/17 00:15 VBG pH 7.330 (7.320-7.420) 02/03/17 00:15 Sodium 142 mmol/L (137-145) 02/05/17 07:20 Potassium 4.9 mmol/L (3.6-5.0) 02/05/17 07:20 Chloride 94.1 mmol/L (98-107) L 02/05/17 07:20 Carbon Dioxide 24 mmol/L (22-30) 02/05/17 07:20 Anion Gap 29 mmol/L 02/05/17 07:20 BUN 46 mg/dL (7-17) H 02/05/17 07:20 Creatinine 8.0 mg/dL (0.7-1.2) H 02/05/17 07:20 Estimated GFR 5 ml/min 02/05/17 07:20 BUN/Creatinine Ratio 5.75 % 02/05/17 07:20 Glucose 81 mg/dL (65-100) 02/05/17 07:20 POC Glucose 129 (70-105) H 02/04/17 01:25 Lactic Acid 1.70 mmol/L (0.7-2.0) 02/04/17 10:11 Calcium 9.4 mg/dL (8.4-10.2) 02/05/17 07:20 Phosphorus 5.40 mg/dL (2.5-4.5) H 02/04/17 17:47 Magnesium 1.90 mg/dL (1.7-2.3) 02/04/17 17:47 Total Bilirubin 0.60 mg/dL (0.1-1.2) 02/04/17 00:15 AST 12 units/L (5-40) 02/04/17 00:15 ALT 17 units/L (7-56) 02/04/17 00:15 Alkaline Phosphatase 85 units/L (35-129) 02/04/17 00:15 Total Creatine Kinase 35 units/L (30-135) 02/04/17 12:39 CK-MB (CK-2) 3.5 ng/mL (0.0-4.0) 02/04/17 12:39 CK-MB (CK-2) Rel Index 10.0 (0-4) H 02/04/17 12:39 Troponin T 0.205 ng/mL (0.00-0.029) H* 02/04/17 12:39 NT-Pro-B Natriuret Pep > 41679 pg/mL (0-900) H 02/04/17 00:15 Total Protein 7.7 g/dL (6.3-8.2) 02/04/17 00:15 Albumin 3.4 g/dL (3.9-5) L 02/04/17 00:15 Albumin/Globulin Ratio 0.8 % 02/04/17 00:15 Triglycerides 132 mg/dL (2-149) 02/04/17 08:09 Cholesterol 154 mg/dL (50-199) 02/04/17 08:09 LDL Cholesterol Direct 90 mg/dL (50-130) 02/04/17 08:09 HDL Cholesterol 38 mg/dL (40-59) L 02/04/17 08:09 Cholesterol/HDL Ratio 4.05 % 02/04/17 08:09 Urine Color Yellow (Yellow) 02/04/17 00:30 Urine Turbidity Cloudy (Clear) 02/04/17 00:30 Urine pH 7.0 (5.0-7.0) 02/04/17 00:30 Ur Specific [place] 1.011 (1.003-1.030) 02/04/17 00:30 Urine Protein 100 mg/dl mg/dL (Negative) 02/04/17 00:30 Urine Glucose (UA) Neg mg/dL (Negative) 02/04/17 00:30 Urine Ketones Neg mg/dL (Negative) 02/04/17 00:30 Urine Blood Sm (Negative) 02/04/17 00:30 Urine Nitrite Neg (Negative) 02/04/17 00:30 Urine Bilirubin Neg (Negative) 02/04/17 00:30 Urine Urobilinogen < 2.0 mg/dL (<2.0) 02/04/17 00:30 Ur Leukocyte Esterase Lg (Negative) 02/04/17 00:30 Urine WBC (Auto) > 182.0 /HPF (0.0-6.0) H 02/04/17 00:30 Urine RBC (Auto) 5.0 /HPF (0.0-6.0) 02/04/17 00:30
--- NOTE | 2017-02-05 10:41 | Admit Criteria Form ---
Admission Criteria Documentation: SYSTEMIC OR INFECTIOUS CONDITION Clinical Indications for Admission to Inpatient Care (Place 'X' for any and all applicable criteria): Hospital admission is needed for appropriate care of the patient because of ANY ONE of the following: []I. Hemodynamic instability indicated by ANY ONE of the following(1)(2)(3)(4 )(5): []a. Vital sign abnormality not readily corrected by appropriate treatment within 12 to 24 hours indicated by ANY ONE of the following: []i) Tachycardia that persists despite appropriate treatment []ii) Hypotension that persists despite appropriate treatment []iii) Orthostatic vital sign changes that persist despite appropriate treatment []b. Vital sign abnormality that is severe indicated by ANY ONE of the following: []i. Inadequate perfusion indicated by ANY ONE of the following : []1) Lactic acidosis (greater than 2 mmol/L) []2) New abnormal capillary refill (greater than 3 seconds) []3) Reduced urine output []4) New altered mental status []5) Myocardial Ischemia []ii. Mean arterial pressure [A] less than 60 mm Hg []iii. Mean arterial pressure[A] less than 70 mm Hg after 30 minutes of appropriate treatment (eg, fluid resuscitation) []iv. Sustained heart rate greater than 120 beats per minute in adult []v. IV inotropic or vasopressor medication required to maintain adequate blood pressure or perfusion []II. Systemic or infectious condition causing severe symptoms or findings not responsive to emergency or observation care treatment (as appropriate) indicated by ANY ONE of the following: []a. Cardiac arrhythmias of immediate concern(1)(2)(3) []b. Severe endocrine disorder (eg, thyrotoxicosis, adrenal insufficiency)(4)(5) []c. Seizures (eg, new or recurrent)(6) []d. New-onset end organ failure or dysfunction as indicated by ANY ONE of the following: []i. Acute unexplained hypoxemia (eg, not from lung infection or chronic disease)(7)(8)(9) []ii. Acute renal failure as indicated by new onset of ANY ONE of the following(10)(11)(12)(13)(14): []1) 3-fold rise in serum creatinine from baseline []2) Serum creatinine greater than 4 mg/dL (354 micromoles/L) with acute rise greater than 0.5 mg/dL (44.2 micromoles/L) []3) Reduction of more than 75% in estimated glomerular filtration rate from baseline. []4) Estimated glomerular filtration rate less than 35 mL/min/1.73m2 ( 0.59 mL/sec/1.73m2) in child younger than 18 years. []5) Cessation of urine output indicated by ALL of the following: []A. Adequate volume status []B. Inadequate urine output as indicated by ANY ONE of the following: []a. Urine output less than 0.3 mL/kg/hr for 24 hours []b. Anuria (urine output less than 0.1 mL/kg/hr) for 12 hours []iii. Acute mental status changes(15) []iv. Acute hepatic failure (eg, plasma bilirubin greater than 4 mg/ dL (68 micromoles/L), new INR greater than 2.0)(16)(17) []e. Unmanageable nausea and vomiting(18) []f. New-onset or uncontrolled central diabetes insipidus(19)(20) []g. Clinically significant dehydration(18)(21) []h. Hypoglycemia(22) []i. Acidosis (pH less than 7.35) or alkalosis (pH greater than 7.45)( 22)(23) []j. Toxic drug level that indicates need for specific monitoring or treatment(24)(25) [X]k. Severe electrolyte abnormalities indicated by ALL of the following (1)(2)(3): []i. Electrolytes and associated findings are not as expected for patient baseline or acceptable treatment effects. []ii. Severe abnormalities indicated by ANY ONE of the following: []1) Sodium less than 130 mEq/L (mmol/L) (new) []2) Sodium less than 135 mEq/L (mmol/L) with ANY ONE of the following: []A. Uncorrectable (to near normal or chronic baseline) after trial of outpatient and emergency treatment []B. Altered mental status []C. Seizures []D. Severe medical etiology requiring inpatient management (eg , heart failure, hypovolemia) []3) Sodium greater than 155 mEq/L (mmol/L) []4) Sodium greater than 150 mEq/L (mmol/L) with ANY ONE of the following: []A. Uncorrectable (to near normal or chronic baseline) with outpatient and emergency treatment []B. Altered mental status []C. Seizures []D. Severe medical etiology (eg, hypovolemia, diabetes insipidus) []5) Potassium less than 2.5 mEq/L (mmol/L) despite outpatient and emergency treatment []6) Potassium less than 3 mEq/L (mmol/L) with ANY ONE of the following : []A. Weakness []B. Cardiac abnormality (eg, arrhythmia, conduction disturbance ) []C. Cardiac ischemia []D. Ileus []E. Ongoing medical cause requiring inpatient management (eg, acute renal wasting or SIADH) []F. Other severe symptoms [X]7) Potassium greater than 6.5 mEq/L (mmol/L) []8) Potassium greater than 5 mEq/L (mmol/L) with ANY ONE of the following: []A. Uncorrectable (to near normal or chronic baseline) with outpatient and emergency treatment []B. Severe ECG findings[A] []C. Acute worsening of renal failure (creatinine greater than 2.5 mg/dL (221 micromoles/L) or significant elevation for age and size) []D. Severe weakness []E. Severe medical etiology (eg, hemolysis, infection, drug overdose) []9) Calcium less than 7 mg/dL (1.75 mmol/L) despite outpatient and emergency treatment(5) []10) Calcium less than 8 mg/dL (2 mmol/L) with significant symptoms or findings (eg, altered mental status, muscle spasms, seizures, breathing difficulty, cardiac abnormality (eg, arrhythmia or conduction disturbance))(5) []11) Calcium greater than 14 mg/dL (3.5 mmol/L)(5) []12) Calcium greater than 12 mg/dL (3 mmol/L) with ANY ONE of the following(5): []A. Uncorrectable (to near normal or chronic baseline) with outpatient and emergency treatment []B. Significant dehydration or hypovolemia as indicated by ALL of the following(3)(6)(7): []a. Not resolved with initial treatments []b. Clinically significant dehydration as indicated by ANY ONE of the following: [](1) Vomiting refractory to outpatient treatment (ie, precluding oral rehydration) [](2) Inability to drink [](3) Hypernatremia or other electrolyte abnormality unable to be corrected with outpatient and emergency treatment [](4) Failure to remain hydrated with outpatient therapy [](5) Reduced urine output [](6) Hypotension [](7) Serious cause for dehydration requiring acute hospitalization ( eg, bowel obstruction, increased intracranial pressure, infectious cause) [](8) Child with ANY ONE of the following(8): [](i) Severe abdominal tenderness [](ii) Adequate care not available at home [](iii) Severe dehydration (greater than 9% loss of body weight) []C. Significant symptoms or findings (eg, altered mental status , cardiac abnormality (eg, arrhythmia, conduction disturbance), malignant etiology requiring inpatient treatment) []13) Phosphorus less than 1 mg/dL (0.32 mmol/L) []14) Phosphorus less than 1.5 mg/dL (0.48 mmol/L) with ANY ONE of the following: []A. Patient unresponsive to outpatient and emergency treatment []B. Significant symptoms or findings (eg, weakness, altered mental status, breathing difficulty, seizures, rhabdomyolysis) []15) Phosphorus greater than 10 mg/dL (3.2 mmol/L) []16) Phosphorus greater than 4.5 mg/dL (1.45 mmol/L) (new) with ANY ONE of the following: []A. Severe medical etiology (eg, crush injury, acute renal failure) []B. Associated hypocalcemia with significant findings (eg, neurologic symptoms, altered mental status, muscle spasms, seizures, breathing difficulty, cardiac abnormality (eg, arrhythmia, conduction disturbance)) []16) Magnesium less than 1 mg/dL (0.41 mmol/L) []17) Magnesium less than 1.5 mg/dL (0.62 mmol/L) with ANY ONE of the following: []A. Patient unresponsive to outpatient and emergency treatment []B. Associated hypocalcemia with significant findings (eg, altered mental status, muscle spasms, seizures, breathing difficulty, cardiac abnormality (eg, arrhythmia, conduction disturbance)) []C. Associated hypokalemia (potassium less than 3 mEq/L (mmol/L )) with risk of arrhythmia []18) Magnesium greater than 4 mEq/L (2 mmol/L) []19) Magnesium greater than 2.5 mEq/L (1.25 mmol/L) with significant symptoms or findings (eg, weakness, altered mental status, cardiac abnormality (eg, arrhythmia, conduction disturbance), breathing difficulty, severe medical etiology (eg, renal failure, hypovolemia)) []20) Uric acid greater than 20 mg/dL (1190 micromoles/L)(9) []21) Uric acid greater than 8 mg/dL (476 micromoles/L) with significant symptoms or findings of tumor lysis syndrome (eg, creatinine greater than 1.5 times upper limit of normal, cardiac abnormality (eg , arrhythmia, conduction disturbance), seizure)(9) []III. High fever or other high-risk infection situation as indicated by ANY ONE of the following(26)(27)(28): []a. Outpatient and observation care antimicrobial treatment unavailable, not effective, or not appropriate []b. Documented bacteremia []c. Temperature greater than 104.9 degrees F (40.5 degrees C) (oral) []d. Temperature greater than 103.1 degrees F (39.5 degrees C) (oral) or less than 96.8 degrees F (36 degrees C) (rectal) that does not respond to emergency treatment and observation care []IV. High-risk febrile neutropenia[A] as indicated by ANY ONE of the following(29)(30)(31)(32): []a. Profound neutropenia[B] anticipated to extend for more than 7 days []b. Hemodynamic instability []c. Hypoxemia []d. Tachypnea []e. Altered mental status []f. New-onset abdominal pain []g. New-onset vomiting or diarrhea []h. Oral or gastrointestinal mucositis that interferes with swallowing or causes severe diarrhea []i. Focal infection (eg, cellulitis, pneumonia, central line or catheter infection, perirectal abscess) []j. Renal insufficiency (eg, GFR of less than 30 mL/min/1.73m2 (0.5 mL/sec /1.73m2)). []k. Severe liver dysfunction (transaminase levels greater than 5 times normal) []l. Platelet count less than 50,000/mm3 (50 x109/L)(33) []m. Leukemia or lymphoma induction therapy []n. Leukemia not in complete remission or with evidence of disease progression []o. Bone marrow transplant patient []p. Alemtuzumab being used for therapy []q. [employer] Association for Supportive Care in Cancer (MASCC) Risk Index score of less than 21[C](33)(35). []V. Isolation required (eg, tuberculosis that requires isolation, Ebola infection)[D](36)(37)(38)(39)(40) []. Gangrene that requires treatment beyond emergency or observation level care(41)(42) []VII. Antitoxin administration and ongoing observation required (eg, tetanus, botulism)(43)(44) []. Suspected infection with rapid progression or severe symptoms as indicated by ANY ONE of the following(45): []a. Streptococcal or staphylococcal toxic shock(46) []b. Diphtheria(47) []c. Hantavirus(48) []d. Severe acute respiratory syndrome(8)(49) []e. Anthrax(50) []f. Ebola[D](36)(37)(38) []g. Necrotizing soft tissue infection(41)(42) []h. Plague(50) []i. Other suspected infection that requires care beyond emergency or observation level care []VII. Severe adverse drug or systemic toxin reaction as indicated by ANY ONE of the following(24): []a. Serotonin syndrome(51)(52) []b. Neuroleptic malignant syndrome(51)(52) []c. Cholinergic syndrome with severe symptoms (eg, bronchorrhea, weakness , mental status changes, seizures)(53) []d. Anticholinergic syndrome []e. Sympathetic syndrome with severe symptoms (eg, seizures, mental status changes, cardiac dysrhythmias) []f. Other severe adverse drug or systemic toxin reaction that remains after emergency or observation level care (as appropriate) []VIII. Allergic reaction with severe symptoms (not responsive to emergency or observation care treatment as appropriate), including ANY ONE of the following(54): []a. Airway edema (pharyngeal, epiglottic, or laryngeal edema) []b. Stridor []c. Respiratory failure []d. Bronchospasm []e. Hypotension []IX. Environmental emergency (not responsive to emergency or observation care treatment as appropriate) as indicated by ANY ONE of the following(55)(56): []a. Hyperthermia []b. Heat stroke []c. Heat exhaustion []d. Hypothermia (temperature less than 95 degrees F (35 degrees C) rectal) (57) []e. Electrocution(58) []X. Complications of transplanted organ (ie, not covered elsewhere)[E] indicated by ANY ONE of the following(59): []a. Acute graft rejection (or graft vs. host disease)[F] requiring inpatient management (eg, intravenous immunosuppression)(60)(61)(62)( 63) []b. Acute failure of transplanted organ necessitating inpatient care (eg, cannot be managed in other setting) []c. Infection requiring inpatient management (eg, Hemodynamic instability, need for intravenous antimicrobial treatment)(64)(65) []d. Other complication of transplanted organ requiring inpatient management [X]XI. Systemic or Infectious Condition condition, symptom, or finding for which emergency and observation care have failed or are not considered appropriate. See General Criteria: Observation Care, General Admission Criteria or Pediatric General Admission Criteria guideline as appropriate. The original [email or web address] content created by [facility] has been revised. The portions of the content which have been revised are identified through the use of italic text or in bold and [facility] has neither reviewed nor approved the modified material. All other unmodified content is copyright [facility]. Please see references footnoted in the original [facility] edition 2016 Admission Criteria Met: Yes
--- NOTE | 2017-02-05 12:12 | Progress Note ---
Assessment and Plan (1) Hyperkalemia Current Visit: Yes Status: Acute Plan to address problem: resolved post HD (2) ESRD (end stage renal disease) on dialysis Current Visit: Yes Status: Chronic Plan to address problem: HD again today for clearance and volume removal Assess need for HD on daily basis Renally dose medications Blood and urine cultures pending Renal diet Maintain fluid restriction of 1 liter per day This patient undergoes outpatient HD at [facility] every Sunday, , and Sunday. Last HD treatment was 01/30/17 Obtain daily weight Strict intake and output (3) Hypertensive kidney disease with ESRD on dialysis Current Visit: Yes Status: Acute Plan to address problem: Obtain home medications and resume home blood pressure medications as appropriate (4) Metabolic acidosis Current Visit: Yes Status: Acute Plan to address problem: Hemodialysis today for ultrafiltration and clearance (5) Hyponatremia Current Visit: Yes Status: Acute Plan to address problem: will correct with HD Subjective Date of service: 02/05/17 Principal diagnosis: ESRD Interval history: tolerated HD yesterday, remains to feel weak Objective - Vital Signs Vital signs: Vital Signs - 12hr 02/05/17 02/05/17 02/05/17 00:32 03:00 04:10 Temperature 97.8 F 97.8 F Pulse Rate 106 H Pulse Rate [ 99 H 84 Right Radial] Respiratory 20 20 Rate Blood Pressure 132/65 143/68 [Right Arm] O2 Sat by Pulse 100 100 Oximetry 02/05/17 02/05/17 07:55 11:20 Temperature 98.4 F 98.7 F Pulse Rate Pulse Rate [ 86 80 Right Radial] Respiratory 18 20 Rate Blood Pressure 154/73 125/69 [Right Arm] O2 Sat by Pulse 100 Oximetry - General Appearance General appearance: well-developed, well-nourished EENT: ATNC, PERRL, mucous membranes moist Neck: no JVD, no carotid bruit Respiratory: Present: Clear to Ascultation. Absent: Rales, Ronchi Cardiology: regular, S1S2 Gastrointestinal: normoactive bowel sounds, no tenderness, no distended, obese Integumentary: no rash, warm and dry Neurologic: no focal deficit, no asterixis, alert and oriented x3 Musculoskeletal: other (trace pitting edema in BLE) Psychiatric: cooperative - Lab 02/05/17 07:20 02/05/17 07:20 Most recent lab results Calcium 9.4 mg/dL (8.4-10.2) 02/05/17 07:20 Phosphorus 5.40 mg/dL (2.5-4.5) H 02/04/17 17:47 Magnesium 1.90 mg/dL (1.7-2.3) 02/04/17 17:47
[2017-02-05] MEDS: LOVENOX SUB-Q SCH (12:15)
[2017-02-05] MEDS: MORPHINE IV PRN ×2 (12:15→20:25)
[2017-02-05] MEDS: VIBRAMYCIN PO SCH ×2 (12:15→21:30)
[2017-02-05] MEDS ORDERED: NACL 0.9 (PRIMING MACHINE ONLY DIALYSIS) MC ONE (17:10)
[2017-02-06] MEDS: MORPHINE IV PRN ×3 (02:07→16:29)
[2017-02-06 07:03] LABS: Basophils % (Auto) 1.2 % (0.0-1.8); Eosinophils % (Auto) 1.9 % (0.0-4.3); Hematocrit 42.8 % (30.3-42.9); Hemoglobin 13.7 gm/dl (10.1-14.3); Mean Corpuscular HGB Conc 32 % (30-34); Mean Corpuscular Hemoglobin 32 pg (28-32); Mean Corpuscular Volume 100 fl (79-97); Platelet Count 218 K/mm3 (140-440); Red Cell Distribution Width 19.5 % (13.2-15.2); White Blood Count 6.6 K/mm3 (4.5-11.0)
[2017-02-06 07:24] LABS: BUN/Creatinine Ratio 5.53; Chloride 92.1 mmol/L (98-107); Potassium 4.2 mmol/L (3.6-5.0)
[2017-02-06] MEDS: LOVENOX SUB-Q SCH (09:38)
[2017-02-06] MEDS: VIBRAMYCIN PO SCH ×2 (09:38→21:49)
[2017-02-06] MEDS: ZOFRAN IV PRN (09:39)
--- NOTE | 2017-02-06 09:45 | Discharge Summary ---
Providers - Providers Date of Admission: 02/04/17 02:50 Attending physician: JULIA CABRERA MD 02/06/17 02:21 Consult to Wound/ET Nurse [CONS] Routine Reason For Exam: wound eval diabetic foot ulcer 02/06/17 09:41 Consult to Physician [CONS] Routine Reason For Exam: positive troponin Consulting Provider: WILMAR PAREKH Primary care physician: [facility] [employer] Hospitalization Condition: Fair Hospital course: 66-year-old woman with a history of end-stage renal disease on dialysis Sunday , , Sunday, hypertension, hyperlipidemia comes emergency room complaining of shortness of breath, generalized weakness and diffuse abdominal cramping. Patient missed 2 dialysis sessions Sepsis. Patient meets criteria given the leukocytosis and fever. Continue sepsis pathway and IV antibiotics. Follow-up blood cultures and lactic acid levels. ESRD. Patient on hemodialysis Sunday, and Sunday. However, patient missed her last 2 scheduled hemodialysis prior to admission. Continue/ resume hemodialysis per nephrology. Volume overload. Etiology secondary to her missed hemodialysis as noted above. BMP greater than 35,000 on admission. Hyperkalemia. Resolved. s/p Kayexalate and hemodialysis. Hypertension. Continue home antihypertensive medications. Hyperlipidemia. Acute cystitis. Urinalysis reveals greater than 182 WBCs. Continue IV antibiotics as noted above. Abdominal pain. Improved. Etiology likely secondary to cystitis. DVT prophylaxis. Lovenox daily. Elevated troponins - Flat; ECG with NAF; pt denies chest pain; currently nonspecific in setting of ESRD. Abdominal pain / acute cystitis ESRD on HD Hyperkalemia Mild LV dysfunction HTN HLP Noncompliance Plan: S/p lexiscan MPI stress test this AM which was negative for significant ischemia , EF 47%. Echo reviewed - EF 45-50%, impaired relaxation. Currently stable cardiac status. Pt may discharge home from cardiology standpoint. Recommend follow up in our office with Mara Taylor NP, within 2 weeks of hospital discharge ([phone]). Assessment and plan reviewed with pt at bedside. The patient has been seen in conjunction with Dr. Driscoll who agrees with the assessment and plan of care. Disposition: - TO HOME OR SELFCARE Time spent for discharge: 33 minutes Core Measure Documentation - Palliative Care Palliative Care/ Comfort Measures: Not Applicable - Core Measures Any of the following diagnoses?: none Exam - Constitutional Vitals: Temp Pulse Resp BP Pulse Ox 98.6 F 110 H 20 138/69 94 02/06/17 09:01 02/06/17 09:01 02/06/17 09:01 02/06/17 09:01 02/06/17 09:01 General appearance: Present: no acute distress, well-nourished - EENT Eyes: Present: PERRL ENT: hearing intact, clear oral mucosa - Neck Neck: Present: supple, normal ROM - Respiratory Respiratory effort: normal Respiratory: bilateral: CTA - Cardiovascular Heart Sounds: Present: S1 & S2. Absent: rub, click - Extremities Extremities: pulses symmetrical, No edema Peripheral Pulses: within normal limits - Abdominal General gastrointestinal: Present: soft, non-tender, non-distended, normal bowel sounds Female genitourinary: Present: normal - Integumentary Integumentary: Present: clear, warm, dry - Musculoskeletal Musculoskeletal: gait normal, strength equal bilaterally - Psychiatric Psychiatric: appropriate mood/affect, intact judgment & insight - Neurologic Neurologic: CNII-XII intact, moves all extremities Plan Follow up with: PRIMARY CAREMD [Primary Care Provider] - 3-5 Days MARTA TANG MD [Staff Physician] - 7 Days Prescriptions: Clopidogrel Bisulfate [Plavix] 75 mg PO DAILY #30 tablet Doxycycline [Vibramycin CAP] 100 mg PO BID #10 capsule Folic Acid [Folvite] 1 mg PO QDAY #30 tablet Omeprazole Magnesium [PriLOSEC Otc] 20 mg PO QDAY #30 tablet. OXcarbazepine [Trileptal] 300 mg PO TID #90 tablet Sevelamer Carbonate [Renvela] 800 mg PO TIDWM #120 tablet tiZANidine [Zanaflex] 4 mg PO HS #30 tablet Vit B Cplx #11/FA/C/Biot/Zn Ox [Dialyvite with Zinc Tablet] 1 each PO QDAY #30 tablet
--- NOTE | 2017-02-06 09:48 | Progress Note ---
Assessment and Plan Assessment and plan: 66-year-old woman with a history of end-stage renal disease on dialysis Sunday , , Sunday, hypertension, hyperlipidemia comes emergency room complaining of shortness of breath, generalized weakness and diffuse abdominal cramping. Patient missed 2 dialysis sessions Sepsis. Patient meets criteria given the leukocytosis and fever. Continue sepsis pathway and IV antibiotics. Follow-up blood cultures and lactic acid levels. Non-stemi ?Type 2, given ESRD but she did have abdominal pain which could be a CP equivalent obtain cardiology consult ESRD. Patient on hemodialysis Sunday, and Sunday. However, patient missed her last 2 scheduled hemodialysis prior to admission. Continue/ resume hemodialysis per nephrology. Volume overload. Etiology secondary to her missed hemodialysis as noted above. BMP greater than 35,000 on admission. Hyperkalemia. Resolved. s/p Kayexalate and hemodialysis. Hypertension. Continue home antihypertensive medications. Hyperlipidemia. Acute cystitis. Urinalysis reveals greater than 182 WBCs. Continue IV antibiotics as noted above. Abdominal pain. Improved. Etiology likely secondary to cystitis. DVT prophylaxis. Lovenox daily. Hospitalist Physical - Constitutional Vitals: Temp Pulse Resp BP Pulse Ox 98.6 F 110 H 20 138/69 94 02/06/17 09:01 02/06/17 09:01 02/06/17 09:01 02/06/17 09:01 02/06/17 09:01 General appearance: Present: no acute distress, well-nourished Results - Labs CBC & Chem 7: 02/06/17 06:26 02/06/17 06:26 Labs: Laboratory Last Values WBC 6.6 K/mm3 (4.5-11.0) 02/06/17 06:26 RBC 4.30 M/mm3 (3.65-5.03) 02/06/17 06:26 Hgb 13.7 gm/dl (10.1-14.3) 02/06/17 06:26 Hct 42.8 % (30.3-42.9) 02/06/17 06:26 MCV 100 fl (79-97) H 02/06/17 06:26 MCH 32 pg (28-32) 02/06/17 06:26 MCHC 32 % (30-34) 02/06/17 06:26 RDW 19.5 % (13.2-15.2) H 02/06/17 06:26 Plt Count 218 K/mm3 (140-440) 02/06/17 06:26 Lymph % (Auto) 18.1 % (13.4-35.0) 02/06/17 06:26 [place] % (Auto) 9.6 % (0.0-7.3) H 02/06/17 06:26 Eos % (Auto) 1.9 % (0.0-4.3) 02/06/17 06:26 Baso % (Auto) 1.2 % (0.0-1.8) 02/06/17 06:26 Lymph # 1.2 K/mm3 (1.2-5.4) 02/06/17 06:26 [place]att # 0.6 K/mm3 (0.0-0.8) 02/06/17 06:26 Eos # 0.1 K/mm3 (0.0-0.4) 02/06/17 06:26 Baso # 0.1 K/mm3 (0.0-0.1) 02/06/17 06:26 Seg Neutrophils % 69.2 % (40.0-70.0) 02/06/17 06:26 Seg Neutrophils # 4.6 K/mm3 (1.8-7.7) 02/06/17 06:26 PT 14.6 Sec. (12.2-14.9) 02/04/17 00:15 INR 1.15 (0.87-1.13) H 02/04/17 00:15 VBG pH 7.330 (7.320-7.420) 02/03/17 00:15 Sodium 140 mmol/L (137-145) 02/06/17 06:26 Potassium 4.2 mmol/L (3.6-5.0) 02/06/17 06:26 Chloride 92.1 mmol/L (98-107) L 02/06/17 06:26 Carbon Dioxide 24 mmol/L (22-30) 02/06/17 06:26 Anion Gap 28 mmol/L 02/06/17 06:26 BUN 31 mg/dL (7-17) H 02/06/17 06:26 Creatinine 5.6 mg/dL (0.7-1.2) H 02/06/17 06:26 Estimated GFR 8 ml/min 02/06/17 06:26 BUN/Creatinine Ratio 5.53 % 02/06/17 06:26 Glucose 91 mg/dL (65-100) 02/06/17 06:26 POC Glucose 129 (70-105) H 02/04/17 01:25 Lactic Acid 1.70 mmol/L (0.7-2.0) 02/04/17 10:11 Calcium 11.0 mg/dL (8.4-10.2) H D 02/06/17 06:26 Phosphorus 5.40 mg/dL (2.5-4.5) H 02/04/17 17:47 Magnesium 1.90 mg/dL (1.7-2.3) 02/04/17 17:47 Total Bilirubin 0.60 mg/dL (0.1-1.2) 02/04/17 00:15 AST 12 units/L (5-40) 02/04/17 00:15 ALT 17 units/L (7-56) 02/04/17 00:15 Alkaline Phosphatase 85 units/L (35-129) 02/04/17 00:15 Total Creatine Kinase 35 units/L (30-135) 02/04/17 12:39 CK-MB (CK-2) 3.5 ng/mL (0.0-4.0) 02/04/17 12:39 CK-MB (CK-2) Rel Index 10.0 (0-4) H 02/04/17 12:39 Troponin T 0.205 ng/mL (0.00-0.029) H* 02/04/17 12:39 NT-Pro-B Natriuret Pep > 48503 pg/mL (0-900) H 02/04/17 00:15 Total Protein 7.7 g/dL (6.3-8.2) 02/04/17 00:15 Albumin 3.4 g/dL (3.9-5) L 02/04/17 00:15 Albumin/Globulin Ratio 0.8 % 02/04/17 00:15 Triglycerides 132 mg/dL (2-149) 02/04/17 08:09 Cholesterol 154 mg/dL (50-199) 02/04/17 08:09 LDL Cholesterol Direct 90 mg/dL (50-130) 02/04/17 08:09 HDL Cholesterol 38 mg/dL (40-59) L 02/04/17 08:09 Cholesterol/HDL Ratio 4.05 % 02/04/17 08:09 Urine Color Yellow (Yellow) 02/04/17 00:30 Urine Turbidity Cloudy (Clear) 02/04/17 00:30 Urine pH 7.0 (5.0-7.0) 02/04/17 00:30 Ur Specific [place] 1.011 (1.003-1.030) 02/04/17 00:30 Urine Protein 100 mg/dl mg/dL (Negative) 02/04/17 00:30 Urine Glucose (UA) Neg mg/dL (Negative) 02/04/17 00:30 Urine Ketones Neg mg/dL (Negative) 02/04/17 00:30 Urine Blood Sm (Negative) 02/04/17 00:30 Urine Nitrite Neg (Negative) 02/04/17 00:30 Urine Bilirubin Neg (Negative) 02/04/17 00:30 Urine Urobilinogen < 2.0 mg/dL (<2.0) 02/04/17 00:30 Ur Leukocyte Esterase Lg (Negative) 02/04/17 00:30 Urine WBC (Auto) > 182.0 /HPF (0.0-6.0) H 02/04/17 00:30 Urine RBC (Auto) 5.0 /HPF (0.0-6.0) 02/04/17 00:30
--- NOTE | 2017-02-06 10:49 | Consultation ---
History of Present Illness Consult date: 02/06/17 Requesting physician: JULIA CABRERA Consult reason: abnormal cardiac enzymes, elevated troponin History of present illness: The pt is a 66 YO female with a past medical history significant for ESRD on HD , HTN, HLP. She is previously unknown to our practice. She presented on 2016 with c/o generalized weakness, abdominal pain, nausea, SOB, and palpitations which began on the morning of admission. She reports that she missed scheduled HD twice prior to admission. Following admission, serum K+ was noted to be 6.7. She denies any chest pain, vomiting, diaphoresis, dizziness, or syncope. On evaluation, pt denies any complaints and is awaiting discharge pending cardiology consultation. Pt was noted to have elevated troponins (0.222 -> 0.205) and thus cardiology has been consulted. Past History Past Medical History: dialysis, ESRD, hypertension, hyperlipidemia, other ( anxiety) Past Surgical History: cholecystectomy, hysterectomy, Other (Left AV Fistula placement) Social history: denies: smoking, alcohol abuse, prescription drug abuse Medications and Allergies Allergies Allergy/AdvReac Type Severity Reaction Status Date / Time acetaminophen Allergy Itching Verified 09/30/15 12:28 [From Darvocet-N] aspirin Allergy Anaphylaxis Verified 12/06/15 09:24 ciprofloxacin Allergy Hives Verified 09/30/15 12:28 ketorolac tromethamine Allergy Hives Verified 09/30/15 12:28 [From Toradol] lorazepam [From Ativan] Allergy Itching Verified 12/06/15 09:25 nifedipine [From Procardia] Allergy Swelling Verified 09/30/15 12:28 OF THROAT nitrofurantoin Allergy Hives Verified 09/30/15 12:28 [From Macrobid] nitrofurantoin Allergy Hives Verified 09/30/15 12:28 macrocrystalline [From Macrobid] Penicillins Allergy Hives Verified 09/30/15 12:28 propoxyphene napsylate Allergy Itching Verified 09/30/15 12:28 [From Darvocet-N] Sulfa (Sulfonamide AdvReac Swelling Verified 04/15/15 15:41 Antibiotics) Home Medications Medication Instructions Recorded Confirmed Last Taken Type Folic Acid [Folvite] 1 mg PO QDAY 04/15/15 02/05/17 1 Day Ago History Gabapentin [Neurontin] 300 mg PO BID 04/15/15 02/05/17 1 Day Ago History Zolpidem [Ambien] 10 mg PO QHS 04/15/15 02/05/17 1 Day Ago History amLODIPine [Norvasc] 5 mg PO DAILY 04/15/15 02/05/17 1 Day Ago History cloNIDine [Catapres] 0.2 mg PO QDAY 04/15/15 02/05/17 1 Day Ago History Cinacalcet [Sensipar] 60 mg PO QDAY 07/26/15 02/05/17 1 Day Ago History Sevelamer Carbonate [Renvela] 800 mg PO TIDWM 07/26/15 02/05/17 1 Day Ago History Clopidogrel Bisulfate [Plavix] 75 mg PO DAILY 05/04/16 02/05/17 1 Day Ago History Warfarin [Coumadin] 5 mg PO QDAY #0 07/04/16 02/05/17 1 Day Ago History Carvedilol [Coreg] 12.5 mg PO QDAY 07/12/16 02/05/17 1 Day Ago History OXcarbazepine [Trileptal] 300 mg PO TID 07/12/16 02/05/17 1 Day Ago History Omeprazole Magnesium [PriLOSEC Otc] 20 mg PO QDAY 07/12/16 02/05/17 1 Day Ago History Tizanidine HCl [tiZANidine] 4 mg PO QHS 07/12/16 02/05/17 1 Day Ago History Vit B Cplx #11/FA/C/Biot/Zn Ox 1 each PO QDAY 07/12/16 02/05/17 1 Day Ago History [Dialyvite with Zinc Tablet] Active Meds: Active Medications Bisacodyl (Dulcolax) 10 mg AL QDAY PRN PRN Reason: Constipation unrelieved by MOM Doxycycline Hyclate (Vibramycin) 100 mg PO BID [facility] Last Admin: 02/06/17 09:38 Dose: 100 mg Heparin Sodium (Porcine) (Heparin) 5,000 unit SUB-Q Q8HR [facility] Sodium Chloride (Nacl 0.9%) 100 mls @ 999 mls/hr IV MIGUEL ÁNGEL PRN PRN Reason: Hypotension Morphine Sulfate (Morphine) 2 mg IV Q4H PRN PRN Reason: Pain , Severe (7-10) Last Admin: 02/06/17 09:55 Dose: 2 mg Ondansetron HCl (Zofran) 4 mg IV Q8H PRN PRN Reason: N/V unrelieved by Reglan Last Admin: 02/06/17 09:39 Dose: 4 mg Zolpidem Tartrate (Ambien) 10 mg PO QHS PRN PRN Reason: Insomnia Last Admin: 02/05/17 23:57 Dose: 10 mg Review of Systems Constitutional: no weight loss, no weight gain, no fever, no chills, no sweats Ears, nose, mouth and throat: no ear pain, no sinus pressure, no sinus pain Cardiovascular: palpitations, shortness of breath, dyspnea on exertion, no chest pain, no orthopnea, no rapid/irregular heart beat Respiratory: no cough, no congestion, no wheezing, no pain on inspiration Gastrointestinal: abdominal pain, nausea, no vomiting, no diarrhea, no constipation, no change in bowel habits Genitourinary Female: no pelvic pain, no flank pain, no dysuria, no urinary frequency, no urgency Musculoskeletal: no neck stiffness, no neck pain, no shooting arm pain, no arm numbness/tingling, no low back pain, no shooting leg pain, no leg numbness/ tingling, no redness of joints Integumentary: no rash, no pruritis, no redness, no sores, no wounds Neurological: no head injury, no paralysis, no syncope Psychiatric: anxiety Endocrine: no cold intolerance, no heat intolerance Hematologic/Lymphatic: no easy bruising, no easy bleeding Allergic/Immunologic: no urticaria, no wheezing, no persistent infections Physical Examination Vital Signs Temp Pulse Resp BP Pulse Ox 101.1 F H 118 H 18 191/94 100 02/03/17 23:08 02/03/17 23:08 02/03/17 23:08 02/03/17 23:08 02/03/17 23:08 General appearance: no acute distress HEENT: Positive: PERRL, Normocephaly, Mucus Membranes Moist Neck: Positive: neck supple, trachea midline Cardiac: Positive: Reg Rate and Rhythm, S1/S2 Lungs: Positive: Normal Exam, clear to auscultation, Normal Breath Sounds Neuro: Positive: Grossly Intact, Cranial Nerve 2-12 Intact Abdomen: Positive: Unremarkable, Soft, Active Bowel Sounds. Negative: Tender Skin: Positive: Clear. Negative: Rash, Wound Musculoskeletal: No Fluid Collection, No Pain, Normal Range of Motion Extremities: Absent: edema Results 02/06/17 06:26 02/06/17 06:26 CBC 02/06/17 Range/Units 06:26 WBC 6.6 (4.5-11.0) K/mm3 RBC 4.30 (3.65-5.03) M/mm3 Hgb 13.7 (10.1-14.3) gm/dl Hct 42.8 (30.3-42.9) % Plt Count 218 (140-440) K/mm3 Lymph # 1.2 (1.2-5.4) K/mm3 [place] # 0.6 (0.0-0.8) K/mm3 Eos # 0.1 (0.0-0.4) K/mm3 Baso # 0.1 (0.0-0.1) K/mm3 Comprehensive Metabolic Panel 02/06/17 Range/Units 06:26 Sodium 140 (137-145) mmol/L Potassium 4.2 (3.6-5.0) mmol/L Chloride 92.1 L (98-107) mmol/L Carbon Dioxide 24 (22-30) mmol/L BUN 31 H (7-17) mg/dL Creatinine 5.6 H (0.7-1.2) mg/dL Glucose 91 (65-100) mg/dL Calcium 11.0 H D (8.4-10.2) mg/dL - Imaging and Cardiology Echo: pending EKG: report reviewed, image reviewed EKG interpretations - Telemetry EKG Rhythm: Sinus Rhythm - EKG Sinus rhythms and dysrhythmias: sinus tachycardia Chamber hypertrophy or enlargement: left ventricular hypertro Assessment and Plan Assessment: Elevated troponins - Flat; ECG with NAF; pt denies chest pain; currently nonspecific in setting of ESRD. Abdominal pain / acute cystitis ESRD on HD Hyperkalemia HTN HLP Noncompliance Plan: Cont to trend Manjula. Obtain echo. Plan for lexiscan MPI stress test in AM pending pt remains clinically and hemodynamically stable. NPO after MN. Assessment and plan reviewed with pt at bedside. The patient has been seen in conjunction with Dr. Driscoll who agrees with the assessment and plan of care.
--- NOTE | 2017-02-06 16:07 | Progress Note ---
Assessment and Plan (1) Hyperkalemia Current Visit: Yes Status: Acute Plan to address problem: resolved (2) ESRD (end stage renal disease) on dialysis Current Visit: Yes Status: Chronic Plan to address problem: no indication for HD today Assess need for HD on daily basis Renally dose medications Blood and urine cultures pending Renal diet Maintain fluid restriction of 1 liter per day Obtain daily weight Strict intake and output (3) Hypertensive kidney disease with ESRD on dialysis Current Visit: Yes Status: Acute Plan to address problem: Obtain home medications and resume home blood pressure medications as appropriate (4) Metabolic acidosis Current Visit: Yes Status: Acute Plan to address problem: improved with HD (5) Hyponatremia Current Visit: Yes Status: Acute Plan to address problem: corrected with HD Subjective Date of service: 02/06/17 Principal diagnosis: ESRD Interval history: tolerated HD yesterday Objective - Vital Signs Vital signs: Vital Signs - 12hr 02/06/17 02/06/17 02/06/17 05:03 09:01 10:00 Temperature 98.7 F 98.6 F Pulse Rate [ 86 110 H Right Radial] Respiratory 20 20 Rate Blood Pressure 151/66 138/69 [Right Arm] O2 Sat by Pulse 100 94 92 Oximetry 02/06/17 13:20 Temperature 98.6 F Pulse Rate [ 106 H Right Radial] Respiratory 20 Rate Blood Pressure 119/58 [Right Arm] O2 Sat by Pulse 93 Oximetry - General Appearance General appearance: well-developed, well-nourished EENT: ATNC, PERRL, mucous membranes moist Neck: no JVD, no carotid bruit Respiratory: Present: Clear to Ascultation Cardiology: regular, S1S2 Gastrointestinal: normoactive bowel sounds, no tenderness, no distended, no guarding Integumentary: no rash, warm and dry Neurologic: no focal deficit, no asterixis, alert and oriented x3 Musculoskeletal: other (no edema in BLE) Psychiatric: mood/affect appropriate, cooperative - Lab 02/06/17 06:26 02/06/17 06:26 Most recent lab results Calcium 11.0 mg/dL (8.4-10.2) H D 02/06/17 06:26 Phosphorus 5.40 mg/dL (2.5-4.5) H 02/04/17 17:47 Magnesium 1.90 mg/dL (1.7-2.3) 02/04/17 17:47
[2017-02-06] MEDS: HEPARIN SUB-Q SCH ×2 (16:30→21:49)
[2017-02-06] MEDS: AMBIEN PO PRN (21:49)
[2017-02-07] MEDS: MORPHINE IV PRN ×3 (02:21→15:50)
[2017-02-07] MEDS: ZOFRAN IV PRN ×3 (02:21→15:49)
[2017-02-07] MEDS: HEPARIN SUB-Q SCH (06:14)
[2017-02-07 06:26] LABS: BUN/Creatinine Ratio 6.75; Calcium 10.6 mg/dL (8.4-10.2); Chloride 89.5 mmol/L (98-107)
[2017-02-07 06:40] LABS: Potassium 5.1 mmol/L (3.6-5.0)
[2017-02-07] MEDS ORDERED: LEXISCAN IV ONE ×2 (08:30→08:33)
--- NOTE | 2017-02-07 10:47 | Progress Note ---
Assessment and Plan Assessment: Elevated troponins - Flat; ECG with NAF; pt denies chest pain; currently nonspecific in setting of ESRD. Abdominal pain / acute cystitis ESRD on HD Hyperkalemia Mild LV dysfunction HTN HLP Noncompliance Plan: S/p lexiscan MPI stress test this AM which was negative for significant ischemia , EF 47%. Echo reviewed - EF 45-50%, impaired relaxation. Currently stable cardiac status. Pt may discharge home from cardiology standpoint. Recommend follow up in our office with Mara Taylor NP, within 2 weeks of hospital discharge ([phone]). Assessment and plan reviewed with pt at bedside. The patient has been seen in conjunction with Dr. Driscoll who agrees with the assessment and plan of care. Subjective Date of service: 02/07/17 Principal diagnosis: ESRD Interval history: Pt seen in stress lab, denies any complaints. VSS. Objective Last Vital Signs Temp 98.1 F 02/07/17 05:34 Pulse 91 H 02/07/17 05:34 Resp 18 02/07/17 05:34 BP 166/72 02/07/17 05:34 Pulse Ox 95 02/07/17 05:34 - Physical Examination General: Appears Well, No Apparent Distress HEENT: Positive: PERRL, Normocephaly, Mucus Membranes Moist Neck: Positive: neck supple, trachea midline Cardiac: Positive: Reg Rate and Rhythm, S1/S2 Lungs: Positive: clear to auscultation Neuro: Positive: Grossly Intact, Cranial Nerve 2-12 Intact Abdomen: Positive: Unremarkable, Soft, Active Bowel Sounds. Negative: Tender Skin: Positive: Clear. Negative: Rash, Wound Musculoskeletal: No Fluid Collection, No Pain, Normal Range of Motion Extremities: Absent: edema - Labs and Meds Cardiac Enzymes 02/06/17 Range/Units 13:49 CK-MB (CK-2) 2.0 (0.0-4.0) ng/mL Comprehensive Metabolic Panel 02/07/17 Range/Units 05:12 Sodium 138 (137-145) mmol/L Potassium 5.1 H D (3.6-5.0) mmol/L Chloride 89.5 L (98-107) mmol/L Carbon Dioxide 23 (22-30) mmol/L BUN 54 H (7-17) mg/dL Creatinine 8.0 H (0.7-1.2) mg/dL Glucose 86 (65-100) mg/dL Calcium 10.6 H (8.4-10.2) mg/dL - Imaging and Cardiology EKG: report reviewed, image reviewed Echo: report reviewed - Telemetry EKG Rhythm: Sinus Rhythm - EKG Sinus rhythms and dysrhythmias: sinus tachycardia Chamber hypertrophy or enlargement: left ventricular hypertro
--- NOTE | 2017-02-07 10:49 | Event Note ---
Date: 02/07/17 Lexiscan MPI stress test: - negative for significant ischemia - EF 47% Quan RIVER NP / DR. GOMES
--- NOTE | 2017-02-07 11:04 | Event Note ---
Date: 02/07/17 Rest and vasodilator stress myocardial perfusion imaging were performed using the standard protocol. 10 mCi of technetium 99 M Myoview were administered prior to the resting acquisition and 28 mCi of technetium 99 M Myoview were administered prior to the stress acquisition. Vasodilator stress was performed with intravenous Lexiscan per protocol. Gated SPECT imaging demonstrates a post stress left ventricular ejection fraction of 47%. There is mild diffuse left ventricular hypokinesis. SPECT myocardial perfusion imaging demonstrates no significant stress-induced perfusion abnormalities. Nuclear cardiac imaging demonstrates mild left ventricular systolic dysfunction post stress with no evidence of significant myocardial ischemia or necrosis.
[2017-02-07] MEDS ORDERED: NACL 0.9 (PRIMING MACHINE ONLY DIALYSIS) MC ONE (11:32)
--- NOTE | 2017-02-07 14:49 | Progress Note ---
Assessment and Plan - Patient Problems (1) Hyperkalemia Current Visit: Yes Status: Acute Plan to address problem: Mild Hyperkalemia. Hemdoalysis today Low potassium diet (2) ESRD (end stage renal disease) on dialysis Current Visit: Yes Status: Chronic Plan to address problem: Hemodialysis today for UF and clearance Renally dose medications Renal diet Maintain fluid restriction of 1 liter per day Obtain daily weight Strict intake and output (3) Hypertensive kidney disease with ESRD on dialysis Current Visit: Yes Status: Acute Plan to address problem: Blood pressures are within goal Subjective Date of service: 02/07/17 Principal diagnosis: ESRD Interval history: Patient tolerated HD well today. States she feels nauseated and that she needs pain medication for her stomach as well. Will notify RN. Objective - Vital Signs Vital signs: Vital Signs - 12hr 02/07/17 02/07/17 02/07/17 05:34 08:26 08:47 Temperature 98.1 F Pulse Rate 87 108 H Pulse Rate [ 91 H Right Radial] Respiratory 18 Rate Blood Pressure 157/72 147/80 Blood Pressure 166/72 [Right Arm] O2 Sat by Pulse 95 Oximetry 02/07/17 02/07/17 02/07/17 08:48 08:49 08:50 Temperature Pulse Rate 105 H 105 H 106 H Pulse Rate [ Right Radial] Respiratory Rate Blood Pressure 146/72 153/67 168/71 Blood Pressure [Right Arm] O2 Sat by Pulse Oximetry 02/07/17 02/07/17 02/07/17 08:51 09:52 10:00 Temperature 98.4 F Pulse Rate 104 H 103 H 108 H Pulse Rate [ Right Radial] Respiratory 18 Rate Blood Pressure 148/72 142/62 125/63 Blood Pressure [Right Arm] O2 Sat by Pulse 98 Oximetry 02/07/17 02/07/17 02/07/17 10:15 10:30 10:45 Temperature Pulse Rate 113 H 107 H 103 H Pulse Rate [ Right Radial] Respiratory Rate Blood Pressure 103/59 93/49 92/44 Blood Pressure [Right Arm] O2 Sat by Pulse Oximetry 02/07/17 02/07/17 02/07/17 11:00 11:15 11:30 Temperature Pulse Rate 110 H 107 H 104 H Pulse Rate [ Right Radial] Respiratory Rate Blood Pressure 93/50 84/50 112/48 Blood Pressure [Right Arm] O2 Sat by Pulse Oximetry 02/07/17 02/07/17 02/07/17 11:45 12:00 12:15 Temperature Pulse Rate 99 H 98 H 94 H Pulse Rate [ Right Radial] Respiratory Rate Blood Pressure 95/55 97/50 96/53 Blood Pressure [Right Arm] O2 Sat by Pulse Oximetry 02/07/17 02/07/17 02/07/17 12:30 12:45 13:00 Temperature Pulse Rate 86 93 H 92 H Pulse Rate [ Right Radial] Respiratory Rate Blood Pressure 101/52 117/55 113/59 Blood Pressure [Right Arm] O2 Sat by Pulse Oximetry - General Appearance General appearance: well-developed, appears stated age EENT: ATNC, PERRL, hearing intact, vision intact Neck: no JVD, supple Respiratory: Present: Decreased Breath Sounds Cardiology: tachycardia, S1S2 Gastrointestinal: normoactive bowel sounds Integumentary: warm and dry, ulcer Neurologic: alert and oriented x3 Musculoskeletal: other (gauze dressing noted to left leg) Psychiatric: cooperative - Lab 02/06/17 06:26 02/07/17 05:12 Most recent lab results Calcium 10.6 mg/dL (8.4-10.2) H 02/07/17 05:12 Phosphorus 5.40 mg/dL (2.5-4.5) H 02/04/17 17:47 Magnesium 1.90 mg/dL (1.7-2.3) 02/04/17 17:47
[2017-02-07 15:14] VITALS: BP 137/85
--- NOTE | 2017-02-10 02:20 | Treadmill Report ---
INDICATION FOR PROCEDURE: Abnormal cardiac enzymes. Informed consent was obtained. Resting nuclear cardiac imaging was performed 45 to 60 minutes following the intravenous administration of 10 mCi of technetium-99m Myoview. Vasodilator stress was achieved with 0.4 mg of Lexiscan intravenously per protocol. Subsequently, stress myocardial perfusion imaging was performed 30 to 45 minutes following the intravenous administration of 28 mCi of technetium-99m Myoview. Images were obtained in a 180-degree arc from 45 degrees DAVILA to 45 degrees LPO. After data acquisition and reconstruction, the images were processed and reoriented into the vertical long, horizontal long and horizontal short axis slices. A polar color map of the horizontal short axis slices was generated and reviewed. The rotating planar images reviewed in cinematic format on the computer console. Gated SPECT imaging demonstrates a post-stress left ventricular ejection fraction of 47%. The left ventricle is mildly hypokinetic. Myocardial perfusion imaging demonstrates no significant cavity change between stress and rest. No significant stress induced perfusion defects are seen. Nuclear cardiac imaging demonstrates mild left ventricular systolic function. There is no evidence for prior myocardial necrosis. There is no evidence for a significant degree of myocardial ischemia. JOB# [id number] RAMON/ERNESTO
== END 2017-02-07 16:15 | disposition home or self-care (01) | DRG 871 ==
LOC: ED 21:46 → 4A 02-04 02:50
PROVIDERS: ADMIT Internal Medicine; ATTEND Internal Medicine
PROC: 5A1D60Z (ICD-10-PCS; principal; 2017-02-04)
DX: A41.9 Sepsis, unspecified organism (principal); N18.6 End stage renal disease; I21.4 Non-ST elevation (NSTEMI) myocardial infarction; E87.5 Hyperkalemia; E78.5 Hyperlipidemia, unspecified; I13.2 Hypertensive heart and chronic kidney disease with heart failure and with stage 5 chronic kidney disease, or end stage renal disease; I50.9 Heart failure, unspecified; M19.90 Unspecified osteoarthritis, unspecified site; G43.909 Migraine, unspecified, not intractable, without status migrainosus; K21.9 Gastro-esophageal reflux disease without esophagitis; R65.10 Systemic inflammatory response syndrome (SIRS) of non-infectious origin without acute organ dysfunction; E87.70 Fluid overload, unspecified; E87.1 Hypo-osmolality and hyponatremia; N30.00 Acute cystitis without hematuria; Z88.8 Allergy status to other drugs, medicaments and biological substances; Z88.6 Allergy status to analgesic agent; Z90.49 Acquired absence of other specified parts of digestive tract; Z90.710 Acquired absence of both cervix and uterus; Z82.49 Family history of ischemic heart disease and other diseases of the circulatory system; Z91.19 Patient's noncompliance with other medical treatment and regimen; Z99.2 Dependence on renal dialysis
CPT/HCPCS: 36415; 71010; 74176; 78452; 80048; 80053; 80061; 81001; 82140; 82550; 82553; 82805; 82962; 83735; 83880; 84100; 84484; 85025; 85027; 85610; 87040; 87086; 93005; 93010; 93017; 93306; 94640; 94760; 96374; 96375; A9502; J0360; J1644; J1650; J1815; J1940; J2270; J2405; J2785; J7030

== ENCOUNTER 2017-07-06 09:08 | Day surgery (SDC) | payer MEDICARE ==
[~2017-07-06 09:08] MED LIST changes: +NACL 0.9% 1000 ML 1,000 ML IV SCH; +VANCOMYCIN/NS 1 GM/250 ML 1 GM/250 ML BAG IV NR; -VANCOMYCIN/NS 1 GM/250 ML 250 ML IV NR
[2017-07-06 09:59] LABS: Basophils % (Auto) 1.3 % (0.0-1.8); Eosinophils % (Auto) 3.1 % (0.0-4.3); Hematocrit 39.4 % (30.3-42.9); Hemoglobin 12.8 gm/dl (10.1-14.3); Mean Corpuscular HGB Conc 32 % (30-34); Mean Corpuscular Hemoglobin 35 pg (28-32); Mean Corpuscular Volume 107 fl (79-97); Platelet Count 159 K/mm3 (140-440); Red Blood Count 3.67 M/mm3 (3.65-5.03); Red Cell Distribution Width 18.6 % (13.2-15.2); White Blood Count 5.1 K/mm3 (4.5-11.0)
[2017-07-06 10:09] LABS: INR 1.41 (0.87-1.13)
[2017-07-06 10:10] LABS: Partial Thromboplastin Time 30.8 Sec. (24.2-36.6)
[2017-07-06 10:11] LABS: Calcium 9.3 mg/dL (8.4-10.2); Chloride 92.8 mmol/L (98-107); Potassium 5.1 mmol/L (3.6-5.0)
[2017-07-06] MEDS ORDERED: VANCOMYCIN/NS 1 GM/250 ML 1 GM/250 ML BAG IV NR (11:00)
[2017-07-06] MEDS ORDERED: NACL 0.9% 500 ML 500 ML IV SCH (11:00)
[2017-07-06] MEDS ORDERED: BENADRYL ONE (11:34)
[2017-07-06] MEDS ORDERED: XYLOCAINE 2% INFILTRATI ONE (11:34)
[2017-07-06] MEDS ORDERED: PEPCID IV ONE (11:36)
[2017-07-06] MEDS: VERSED ONE ×4 (11:45→12:19)
[2017-07-06] MEDS: SUBLIMAZE ONE ×4 (11:45→12:19)
[2017-07-06] MEDS ORDERED: ANGIOMAX IV ONE (11:47)
[2017-07-06] MEDS ORDERED: NACL 0.9% 500 ML 500 ML ONE (11:47)
[2017-07-06] MEDS ORDERED: NACL 0.9% 100 ML ONE (11:48)
[2017-07-06] MEDS ORDERED: PLAVIX ONE (12:09)
[2017-07-06] MEDS ORDERED: HEPARIN 10,000 UNITS/10 ML ONE (12:28)
[2017-07-06] MEDS ORDERED: VERSED ONE (12:29)
[2017-07-06] MEDS ORDERED: PERCOCET 5/325 PO ONE (13:13)
[2017-07-06 14:20] VITALS: BP 171/77
--- NOTE | 2017-07-06 15:24 | Short Stay Summary ---
Short Stay Documentation Date of service: 07/06/17 Narrative H&P: 67 year old female with ESRD and bilateral lower extremity ulcers on her feet and left upper extremity pain with left upper extremity arterial bypass. - History Principal diagnosis: Lower extremity nonhealing ulcers and left upper extremity pain with bypass Past Medical History: ESRD Social history: - Allergies and Medications Current Medications: Allergies acetaminophen [From Darvocet-N] Allergy (Verified 02/11/17 16:22) Itching aspirin Allergy (Verified 02/11/17 16:22) Anaphylaxis ciprofloxacin Allergy (Verified 02/11/17 16:22) Hives heparin Allergy (Verified 02/13/17 18:52) HIT Per Pt statement. W/U as an outpt with hematology. ketorolac tromethamine [From Toradol] Allergy (Verified 02/11/17 16:22) Hives lorazepam [From Ativan] Allergy (Verified 02/11/17 16:22) Itching nifedipine [From Procardia] Allergy (Verified 02/11/17 16:22) Swelling OF THROAT nitrofurantoin [From Macrobid] Allergy (Verified 02/11/17 16:22) Hives nitrofurantoin macrocrystalline [From Macrobid] Allergy (Verified 02/11/17 16:22 ) Hives Penicillins Allergy (Verified 02/11/17 16:22) Hives propoxyphene napsylate [From Darvocet-N] Allergy (Verified 02/11/17 16:22) Itching Sulfa (Sulfonamide Antibiotics) Adverse Reaction (Verified 02/11/17 16:22) Swelling Home Medications Medication Instructions Recorded Confirmed Last Taken Type amLODIPine [Norvasc] 5 mg PO DAILY 04/15/15 07/06/17 07/06/17 History 5mg B Complex 11/Folic/C/Biot/Zinc 1 each PO QDAY #30 tablet 02/07/17 07/06/1707/05 Rx [Dialyvite with Zinc Tablet] 1 Folic Acid [Folvite] 1 mg PO QDAY #30 tablet 02/07/17 07/06/17 07/05/17 Rx 1mg OXcarbazepine [Trileptal] 300 mg PO TID #90 tablet 02/07/17 07/06/17 07/05/17 Rx 300mg Carvedilol [Coreg] 12.5 mg PO QDAY #30 tablet 02/18/17 07/06/17 07/05/17 Rx 12.5mg Cinacalcet [Sensipar] 60 mg PO QDAY #30 tablet 02/18/17 07/06/17 07/05/17 Rx 60mg Gabapentin [Neurontin] 300 mg PO BID #60 capsule 02/18/17 07/06/17 07/05/17 Rx 300mg Warfarin [Coumadin] 7.5 mg PO DAILY@1700 #30 tablet 02/18/17 07/06/17 07/05/17 Rx 7.5mg cloNIDine [Catapres] 0.2 mg PO DAILY #30 tablet 02/18/17 07/06/17 07/06/17 Rx 0.2mg predniSONE [Deltasone] 10 mg PO QDAY tablet 02/18/17 07/06/17 07/05/17 Rx 10mg tiZANidine [Zanaflex] 4 mg PO HS #30 tablet 02/18/17 07/06/17 07/05/17 Rx 4mg HYDROcodone/ACETAMINOPHEN [[place] 1 each PO Q6H PRN #40 tablet 07/06/17 Unknown Rx 7.5-325 Tablet] Active Medications Sodium Chloride (Nacl 0.9% 500 Ml) 500 mls @ 50 mls/hr IV DIRECT INDIO Vancomycin HCl (Vancomycin/Ns 1 Gm/250 Ml) 1 gm in 250 mls @ 167.007 mls/hr IV PREOP NR PRN Reason: Protocol Stop: 07/06/17 23:59 Last Admin: 07/06/17 12:00 Dose: 250 mls - Physical exam General appearance: no acute distress HEENT: EOMI Lungs: Normal air movement Extremities: normal temperature, normal color - Brief post op/procedure progress note Date of procedure: 07/06/17 Pre-op diagnosis: Nonhealing lower extremity ulcers and left upper extremity pain with bypass Post-op diagnosis: same Procedure: 1. Ultrasound guided access of the left upper extremity AV graft 2. Third order selection of the right superficial femoral artery with angiography 3. Third order selection of the left superficial femoral artery with angiography 4. Selection of the abdominal aorta with aortography 5. Fistulogram 6. Left upper extremity angiography Anesthesia: local (w/ conscious sedation) Surgeon: PATTI FONTANEZ Estimated blood loss: minimal Condition: stable - Hospital course Hospital course: Ready for discharge. Discussed revascularization in 1 week of the left upper extremity - Disposition Condition at discharge: Stable Disposition: DC-01 TO HOME OR SELFCARE Short Stay Discharge Plan Activity: advance as tolerated Weight Bearing Status: Weight Bear as Tolerated Diet: renal Wound: keep clean and dry Follow up with: PRIMARY CARE, [Primary Care Provider] - 7 Days Forms: AVG Arteriogram D/CInstruction, Warfarin Discharge Instruction Prescriptions: HYDROcodone/ACETAMINOPHEN [[place] 7.5-325 Tablet] 1 each PO Q6H PRN #40 tablet PRN Reason: Pain
--- NOTE | 2017-07-06 15:26 | Operative Report ---
Operative Report Operative Report: EXAM: 1. Ultrasound guided access of the left upper extremity AV graft 2. Third order selection of the right superficial femoral artery with angiography 3. Third order selection of the left superficial femoral artery with angiography 4. Selection of the abdominal aorta with aortography 5. Fistulogram 6. Left upper extremity angiography DATE: 07/06/17 METAL FABRICATOR APPRENTICE: PATTI FONTANEZ MD INDICATION: Bilateral lower extremity nonhealing ulcers, left upper extremity arterial bypass with left upper extremity hand pain, and left upper extremity axillary axillary AV graft with axillary brachial bypass graft. MEDICATIONS: Please see nursing report for full details. CONTRAST: Please see [employer] Machine Offbearer report. PROCEDURE: The risks, benefits, and alternatives were discussed with the patient; written informed consent was obtained. The patient's left arm was prepped and draped in a sterile fashion. The left AV access was evaluated under ultrasound was patent. Under direct ultrasound guidance, the left AV access was punctured with a 21-gauge micropuncture needle. 0.018 inch wire was passed into the AV access. Needle was exchanged for a 5 glidesheath slender. Digital subtraction angiography was performed through the sheath demonstrating patency of the left axillary axillary AV graft without evidence of stenosis. Central veins were patent. The outflow veins were patent. 0.035 inch wire and angled catheter were used to select the descending thoracic aorta, abdominal aorta, and then the right superficial femoral artery. Digital subtraction angiography was performed demonstrating patency of the right superficial femoral artery, popliteal artery, tibioperoneal trunk, and posterior tibial artery. The peroneal artery was slightly small in size, but patent throughout its course. The anterior tibial artery was diminutive in size and became atretic at the dorsalis pedis. Pullback angiography of the right lower extremity was performed of initiating patency of the right superficial femoral artery, common femoral artery, profunda femoral artery, external iliac artery, common iliac artery, and distal abdominal aorta. The left superficial femoral artery was selected. Digital subtraction angiography was performed demonstrating patency of the left superficial femoral artery, popliteal artery, tibioperoneal trunk, and posterior tibial artery. The peroneal artery was slightly small in size, but patent throughout its course. The anterior tibial artery was diminutive in size and became atretic at the dorsalis pedis. Pullback angiography of the left lower extremity was performed of initiating patency of the right superficial femoral artery, common femoral artery, profunda femoral artery, external iliac artery, common iliac artery, and distal abdominal aorta. Catheter was exchanged for an MPA with multiple side holes. The distal abdominal aorta was selected and digital subtraction angiography demonstrated patency of the abdominal aorta. The left axillary artery was selected and digital subtraction angiography demonstrating patency of the left proximal axillary artery. The mid and distal axillary artery were moderately stenotic. The brachial artery was moderately stenotic. The axillary artery after the graft was stenotic at that point. The axillary brachial bypass graft was occluded. All wires and catheters are removed. Sheath was removed and closed with 3-0 Vicryl. Dermabond applied. FINDINGS: Please see procedure note above. IMPRESSION: 1. Aortography with bilateral lower extremity runoff with selection of the right superficial femoral artery and left superficial femoral artery. 2. Fistulogram without intervention. 3. Left upper extremity angiogram demonstrating stenosis of the axillary artery. Given the patient's symptoms, she will require intervention which will need to be performed from a common femoral artery approach.
== END 2017-07-06 15:05 | disposition home or self-care (01) ==
LOC: CATHLABREC 09:08
PROVIDERS: ATTEND Radiology Diagnostic Radiology
DX: I70.213 Atherosclerosis of native arteries of extremities with intermittent claudication, bilateral legs (principal); I87.2 Venous insufficiency (chronic) (peripheral); N18.6 End stage renal disease; Z79.01 Long term (current) use of anticoagulants; Z88.6 Allergy status to analgesic agent; Z88.8 Allergy status to other drugs, medicaments and biological substances; Z88.1 Allergy status to other antibiotic agents; Z88.5 Allergy status to narcotic agent; Z88.0 Allergy status to penicillin; Z88.2 Allergy status to sulfonamides; Z79.899 Other long term (current) drug therapy; Z95.820 Peripheral vascular angioplasty status with implants and grafts; Z99.2 Dependence on renal dialysis
CPT/HCPCS: 36247; 36415; 36901; 75625; 75716; 80048; 85025; 85610; 85730; 99156; 99157; C1769; C1894; J0583; J1200; J2250; J2930; J3010; J3370; J7040; J1644; Q9967

== ENCOUNTER 2017-07-12 09:05 | Day surgery (SDC) | payer MEDICARE ==
[2017-07-12 10:51] LABS: Basophils % (Auto) 0.8 % (0.0-1.8); Eosinophils % (Auto) 2.5 % (0.0-4.3); Hematocrit 36.3 % (30.3-42.9); Hemoglobin 11.8 gm/dl (10.1-14.3); Mean Corpuscular HGB Conc 32 % (30-34); Mean Corpuscular Hemoglobin 35 pg (28-32); Mean Corpuscular Volume 108 fl (79-97); Platelet Count 158 K/mm3 (140-440); Red Blood Count 3.37 M/mm3 (3.65-5.03); Red Cell Distribution Width 18.5 % (13.2-15.2); White Blood Count 6.2 K/mm3 (4.5-11.0)
[2017-07-12 11:02] LABS: Calcium 8.9 mg/dL (8.4-10.2); Chloride 95.4 mmol/L (98-107); INR 1.96 (0.87-1.13); Potassium 4.9 mmol/L (3.6-5.0)
[2017-07-12] MEDS ORDERED: XYLOCAINE 2% INFILTRATI ONE (11:56)
[2017-07-12] MEDS ORDERED: VERSED ONE (11:56)
[2017-07-12] MEDS ORDERED: NACL 0.9% 250ML 250 ML ONE ×2 (11:57)
[2017-07-12] MEDS ORDERED: NACL 0.9% 500 ML IR ONE (12:00)
[2017-07-12] MEDS ORDERED: ANGIOMAX IV ONE (12:06)
[2017-07-12] MEDS ORDERED: NACL 0.9% 500 ML 500 ML ONE (12:08)
[2017-07-12] MEDS ORDERED: NACL 0.9% 100 ML ONE ×2 (12:08→12:40)
[2017-07-12] MEDS: SUBLIMAZE ONE ×4 (12:17→12:55)
[2017-07-12] MEDS: VERSED ONE ×2 (12:22→12:55)
--- NOTE | 2017-07-12 13:04 | Short Stay Summary ---
Short Stay Documentation Date of service: 07/12/17 Narrative H&P: 67 year old female with - History Principal diagnosis: Arterial ischemia LUE Past Medical History: dialysis, PVD, other (Multiple LUE surgical procedures) - Allergies and Medications Current Medications: Allergies acetaminophen [From Darvocet-N] Allergy (Verified 02/11/17 16:22) Itching aspirin Allergy (Verified 02/11/17 16:22) Anaphylaxis ciprofloxacin Allergy (Verified 02/11/17 16:22) Hives heparin Allergy (Verified 02/13/17 18:52) HIT Per Pt statement. W/U as an outpt with hematology. ketorolac tromethamine [From Toradol] Allergy (Verified 02/11/17 16:22) Hives lorazepam [From Ativan] Allergy (Verified 02/11/17 16:22) Itching nifedipine [From Procardia] Allergy (Verified 02/11/17 16:22) Swelling OF THROAT nitrofurantoin [From Macrobid] Allergy (Verified 02/11/17 16:22) Hives nitrofurantoin macrocrystalline [From Macrobid] Allergy (Verified 02/11/17 16:22 ) Hives Penicillins Allergy (Verified 02/11/17 16:22) Hives propoxyphene napsylate [From Darvocet-N] Allergy (Verified 02/11/17 16:22) Itching Sulfa (Sulfonamide Antibiotics) Adverse Reaction (Verified 02/11/17 16:22) Swelling Home Medications Medication Instructions Recorded Confirmed Last Taken Type amLODIPine [Norvasc] 5 mg PO DAILY 04/15/15 07/06/17 07/06/17 History 5mg B Complex 11/Folic/C/Biot/Zinc 1 each PO QDAY #30 tablet 02/07/17 07/06/1707/05 Rx [Dialyvite with Zinc Tablet] 1 Folic Acid [Folvite] 1 mg PO QDAY #30 tablet 02/07/17 07/06/17 07/05/17 Rx 1mg OXcarbazepine [Trileptal] 300 mg PO TID #90 tablet 02/07/17 07/06/17 07/05/17 Rx 300mg Carvedilol [Coreg] 12.5 mg PO QDAY #30 tablet 02/18/17 07/06/17 07/05/17 Rx 12.5mg Cinacalcet [Sensipar] 60 mg PO QDAY #30 tablet 02/18/17 07/06/17 07/05/17 Rx 60mg Gabapentin [Neurontin] 300 mg PO BID #60 capsule 02/18/17 07/06/17 07/05/17 Rx 300mg Warfarin [Coumadin] 7.5 mg PO DAILY@1700 #30 tablet 02/18/17 07/06/17 07/05/17 Rx 7.5mg cloNIDine [Catapres] 0.2 mg PO DAILY #30 tablet 02/18/17 07/06/17 07/06/17 Rx 0.2mg predniSONE [Deltasone] 10 mg PO QDAY tablet 02/18/17 07/06/17 07/05/17 Rx 10mg tiZANidine [Zanaflex] 4 mg PO HS #30 tablet 02/18/17 07/06/17 07/05/17 Rx 4mg HYDROcodone/ACETAMINOPHEN [[place] 1 each PO Q6H PRN #40 tablet 07/06/17 Unknown Rx 7.5-325 Tablet] Active Medications Sodium Chloride (Nacl 0.9% 1000 Ml) 1,000 mls @ 42 mls/hr IV DIRECT INDIO Vancomycin HCl (Vancomycin/Ns 1 Gm/250 Ml) 1 gm in 250 mls @ 166.667 mls/hr IV PREOP NR PRN Reason: Protocol Stop: 07/12/17 23:59 Last Admin: 07/12/17 12:20 Dose: 250 mls - Physical exam General appearance: mild distress (LUE hand pain) Lungs: Normal air movement Gastrointestinal: normal - Brief post op/procedure progress note Date of procedure: 07/12/17 Pre-op diagnosis: LUE ischemia from AVG steal Post-op diagnosis: same Procedure: [place] LUE Anesthesia: local (w/ conscious sedation) Surgeon: PATTI FONTANEZ Estimated blood loss: minimal Condition: stable - Hospital course Hospital course: Tolerated procedure well. Perclose worked without issue. Can be discharged in 4 hrs. Resume coumadin tomorrow. - Disposition Condition at discharge: Stable Disposition: DC-01 TO HOME OR SELFCARE Short Stay Discharge Plan Activity: advance as tolerated Weight Bearing Status: Weight Bear as Tolerated (no lifting greater than 10 lbs for 2 weeks) Diet: renal Wound: keep clean and dry Follow up with: REKHA RUBIN MD [Primary Care Provider] - 7 Days
--- NOTE | 2017-07-12 13:34 | Operative Report ---
Operative Report Operative Report: EXAM: 1. Ultrasound-guided access of the right common femoral artery. 2. Angiography of the right lower extremity. 3. Selection of the left subclavian artery with angiography of the left upper extremity 4. Selection of the left axillary artery with angiography of the left upper extremity 5. Selection of the left brachial artery with angiography of the left upper extremity 6. Fistulogram 7. Angioplasty of the left axillary artery with a 4 mm angioplasty balloon 8. Angioplasty of the left axillary artery with a 5 mm x 100 mm LUTONIX drug cutting balloon 9. 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 MEDICATIONS: Please see nursing report for full details. DEVICES: 4 mm x 80 mm angioplasty balloon 5 mm x 100 mm LUTONIX DCB (pass through code required) CONTRAST: Please see greens laborer report for full details. PROCEDURE: The risks, benefits, and alternatives were discussed with the patient and her family; written informed consent was obtained. The patient's groins were prepped and draped in a sterile fashion. The patient' s left arm was extended on an arm board. The right common femoral artery was assessed with ultrasound was patent. Under direct ultrasound guidance, right common femoral artery was accessed with a 21- gauge micropuncture needle. 0.018 inch wire was passed into the aorta. Needle was exchanged for transitional dilator. Wire was exchanged for 0.035 inch [place] wire. Transitional dilator was changed for 5 Italian sheath. Digital subtraction angiography was performed demonstrating patency of the right external iliac artery, common femoral artery, and proximal superficial femoral artery and profunda femoral artery. There is an appropriate access, above the bifurcation below the inferior epigastric artery. Sheath was then exchanged for 6 Italian 90 cm [place] destination positioned in the descending thoracic aorta. 5 Italian catheter was used to select the left subclavian artery. Digital subtraction angiography was performed demonstrating no significant stenotic or occlusive lesion. 5 Italian vertebral catheter and a Glidewire advantage for used to cannulate the left axillary artery. Sheath was then passed over the catheter and wire into the left axillary artery. Digital subtraction angiography was performed of the left upper extremity from multiple catheter position selections including the left axillary artery, and left brachial artery. Digital subtraction angiography demonstrated occlusion of the axillary brachial bypass graft. The left axillary artery was 80% narrowed. Afterwards, the artery had a normal caliber with it. The brachial artery had a tiny dissection flap which was not flow limiting within the distal portion of the vessel. The ulnar artery, radial artery, interosseous artery, and common ulnar interosseous trunk were patent except for some mild atherosclerotic disease in the radial artery. The left upper extremity loop graft had good flow throughout it, with no narrowings or central narrowings. Catheter was used to cross the stenotic lesion and a V 18 was passed as the brachial artery. 4 mm angioplasty balloon was advanced over the wire used to perform angioplasty of the axillary artery. This was followed by a 5 mm drug-coated balloon which was inflated for 3 minutes. After inflation, digital subtraction angiography still demonstrated steal into the left upper extremity AV graft, but the patient reported that her left upper extremity hand symptoms have resolved. The axillary artery narrowing had resolved. Given that she had clinically improved, I felt no further intervention was required. Angled cath was advanced over the wire into the brachial artery and digital subtraction angiography was performed of the left upper extremity demonstrating no change from prior preintervention angiogram. Over 0.035 inch wire, pullback angiography was performed to that she has demonstrating no significant narrowing of the left subclavian artery. Wire and catheter were retracted into the aorta. Sheath was removed and exchanged for 6 Italian Pro-glide which was successfully deployed achieving near immediate hemostasis. Patient tolerated the procedure well. No immediate postprocedure complication. The right common femoral artery was pulsatile after the procedure. FINDINGS: Please see the greens laborer report above IMPRESSION: 1. Successful selection of the left brachial artery, left axillary artery, and left subclavian artery from a right common femoral approach. 2. Successful angiography of the right lower extremity, left upper extremity, and fistulogram. 3. Successful angioplasty of the left axillary artery. 4. Successful closure of the right common femoral artery arteriotomy with a 6 Italian Perclose.
[2017-07-12] MEDS ORDERED: NORCO 5/325 PO PRN (14:16)
[2017-07-12 17:06] VITALS: BP 156/72
== END 2017-07-12 17:25 | disposition home or self-care (01) ==
LOC: CATHLABREC 09:05
PROVIDERS: ATTEND Radiology Diagnostic Radiology
DX: T82.898A Other specified complication of vascular prosthetic devices, implants and grafts, initial encounter (principal); D68.62 Lupus anticoagulant syndrome; D75.82 Heparin induced thrombocytopenia (HIT); I73.9 Peripheral vascular disease, unspecified; Z88.8 Allergy status to other drugs, medicaments and biological substances; Z88.5 Allergy status to narcotic agent; Z88.1 Allergy status to other antibiotic agents; Z88.0 Allergy status to penicillin; Z88.2 Allergy status to sulfonamides; Z79.01 Long term (current) use of anticoagulants; Z79.899 Other long term (current) drug therapy; Y83.1 Surgical operation with implant of artificial internal device as the cause of abnormal reaction of the patient, or of later complication, without mention of misadventure at the time of the procedure
CPT/HCPCS: 36415; 37246; 75710; 80048; 85025; 85610; 85730; 96365; 99156; 99157; C1725; C1760; C1769; C1887; C2623; J0583; J2250; J3010; J3370; J7040; J7050; Q9967

== ENCOUNTER 2017-08-17 06:34 | Day surgery (SDC) | payer MEDICARE ==
[2017-08-17 07:53] LABS: INR 0.99 (0.87-1.13)
[2017-08-17 07:54] LABS: Partial Thromboplastin Time 26.9 Sec. (24.2-36.6)
[2017-08-17] MEDS ORDERED: XYLOCAINE 1% 20 mL ONE (08:18)
[2017-08-17] MEDS ORDERED: NACL 0.9% 500 ML 500 ML ONE (08:18)
[2017-08-17] MEDS ORDERED: NACL 0.9% 100 ML ONE ×2 (08:19→08:58)
[2017-08-17] MEDS ORDERED: ANGIOMAX IV ONE ×2 (08:20→08:58)
[2017-08-17] MEDS: VERSED ONE ×4 (08:47→09:19)
[2017-08-17] MEDS: SUBLIMAZE ONE ×4 (08:47→09:19)
[2017-08-17] MEDS ORDERED: NACL 0.9% 50 ML ONE (08:59)
[2017-08-17] MEDS ORDERED: SUBLIMAZE ONE (09:22)
[2017-08-17] MEDS ORDERED: VERSED ONE (09:22)
--- NOTE | 2017-08-17 09:34 | Short Stay Summary ---
Short Stay Documentation Date of service: 08/17/17 Narrative H&P: 67 year old female with left upper extremity steal with pain of her left hand and some mild decreased motor and sensory function. - History Principal diagnosis: Steal of the left upper extremity AV access H&P: obtained from office - Allergies and Medications Current Medications: Allergies aspirin Allergy (Verified 02/11/17 16:22) Anaphylaxis ciprofloxacin Allergy (Verified 02/11/17 16:22) Hives heparin Allergy (Verified 02/13/17 18:52) HIT Per Pt statement. W/U as an outpt with hematology. ketorolac tromethamine [From Toradol] Allergy (Verified 02/11/17 16:22) Hives lorazepam [From Ativan] Allergy (Verified 02/11/17 16:22) Itching nifedipine [From Procardia] Allergy (Verified 02/11/17 16:22) Swelling OF THROAT nitrofurantoin [From Macrobid] Allergy (Verified 02/11/17 16:22) Hives nitrofurantoin macrocrystalline [From Macrobid] Allergy (Verified 02/11/17 16:22 ) Hives Penicillins Allergy (Verified 02/11/17 16:22) Hives propoxyphene napsylate [From Darvocet-N] Allergy (Verified 02/11/17 16:22) Itching Sulfa (Sulfonamide Antibiotics) Adverse Reaction (Verified 02/11/17 16:22) Swelling Home Medications Medication Instructions Recorded Confirmed Last Taken Type amLODIPine [Norvasc] 5 mg PO DAILY 04/15/15 08/17/17 08/17/17 History B Complex 11/Folic/C/Biot/Zinc 1 each PO QDAY #30 tablet 02/07/17 08/17/1708/16 Rx [Dialyvite with Zinc Tablet] Folic Acid [Folvite] 1 mg PO QDAY #30 tablet 02/07/17 08/17/17 08/16/17 Rx OXcarbazepine [Trileptal] 300 mg PO TID #90 tablet 02/07/17 08/17/17 08/16/17 Rx Carvedilol [Coreg] 12.5 mg PO QDAY #30 tablet 02/18/17 08/17/17 08/16/17 Rx Cinacalcet [Sensipar] 60 mg PO QDAY #30 tablet 02/18/17 08/17/17 08/16/17 Rx Gabapentin [Neurontin] 300 mg PO BID #60 capsule 02/18/17 08/17/17 08/16/17 Rx Warfarin [Coumadin] 7.5 mg PO DAILY@1700 #30 tablet 02/18/17 08/17/17 08/16/17 Rx cloNIDine [Catapres] 0.2 mg PO DAILY #30 tablet 02/18/17 08/17/17 08/16/17 Rx predniSONE [Deltasone] 10 mg PO QDAY tablet 02/18/17 08/17/17 08/16/17 Rx tiZANidine [Zanaflex] 4 mg PO HS #30 tablet 02/18/17 08/17/17 08/16/17 Rx HYDROcodone/ACETAMINOPHEN [[place] 1 each PO Q6H PRN #40 tablet 07/06/17 08/17/17 08/16/17 Rx 7.5-325 Tablet] - Physical exam General appearance: no acute distress Lungs: Normal air movement Gastrointestinal: normal Extremities: pulses intact (thrill LUE AVG), abnormal (mild left hand motor and sensory deficit, pain of the left hand) - Brief post op/procedure progress note Date of procedure: 08/17/17 Pre-op diagnosis: ESRD with steal of the left upper extremity Post-op diagnosis: same Procedure: Revascularization of the left upper extremity Anesthesia: local (w/ conscious sedation) Surgeon: PATTI FONTANEZ Estimated blood loss: minimal Specimen disposition: to lab - Hospital course Hospital course: Tolerated procedure well. Will keep for 3 hrs. - Disposition Condition at discharge: Stable Disposition: - TO HOME OR SELFCARE - Discharge Diagnoses (1) Ischemia of extremity Status: Acute (2) Malfunction of arteriovenous graft Status: Acute Short Stay Discharge Plan Activity: advance as tolerated Weight Bearing Status: Weight Bear as Tolerated (do not lift more than 10-15 lbs for 1 weeks) Diet: renal Wound: keep clean and dry Follow up with: REKHA RUBIN MD [Primary Care Provider] - 7 Days
--- NOTE | 2017-08-17 09:37 | Operative Report ---
Operative Report Operative Report: EXAM: 1. Ultrasound-guided access of the right common femoral artery. 2. Angiography of the right lower extremity. 3. Selection of the left subclavian artery with angiography of the left upper extremity (clinical change) 4. Selection of the left axillary artery with angiography of the left upper extremity (clinical change) 5. Selection of the left brachial artery with angiography of the left upper extremity (clinical change) 6. Fistulogram (clinical change) 7. Angioplasty of the left axillary artery with a 5 mm x 80 mm angioplasty balloon 8. Angioplasty of the left axillary artery with a 6 mm x 80 mm INPACT drug cutting balloon 9. 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 MEDICATIONS: Please see nursing report for full details. DEVICES: 5 mm x 80 mm angioplasty balloon 6 mm x 80 mm INPACT DCB CONTRAST: Please see [employer] report for full details. PROCEDURE: The risks, benefits, and alternatives were discussed with the patient and her family; written informed consent was obtained. The patient's groins were prepped and draped in a sterile fashion. The patient' s left arm was extended on an arm board. The right common femoral artery was assessed with ultrasound was patent. Under direct ultrasound guidance, right common femoral artery was accessed with a 21- gauge micropuncture needle. 0.018 inch wire was passed into the aorta. Needle was exchanged for transitional dilator. Wire was exchanged for 0.035 inch Pollard wire. Transitional dilator was changed for 5 [place] sheath. Digital subtraction angiography was performed demonstrating patency of the right external iliac artery, common femoral artery, and proximal superficial femoral artery and profunda femoral artery. There is an appropriate access, above the bifurcation below the inferior epigastric artery. Sheath was then exchanged for 6 [place] 90 cm [place] destination positioned in the descending thoracic aorta. 5 [place] catheter was used to select the left subclavian artery. Digital subtraction angiography was performed demonstrating no significant stenotic or occlusive lesion. 5 [place] vertebral catheter and a Glidewire advantage for used to cannulate the left axillary artery. Sheath was then passed over the catheter and wire into the left axillary artery. Digital subtraction angiography was performed of the left upper extremity from multiple catheter position selections including the left axillary artery, and left brachial artery. Catheter was used to cross the stenotic lesion and a Glidewire advantage was passed into the brachial artery. Digital subtraction angiography demonstrated occlusion of the axillary brachial bypass graft. The left axillary artery was 60% narrowed. Afterwards, the artery had a normal caliber with it. The brachial artery had a tiny dissection flap which was not flow limiting within the distal portion of the vessel. The ulnar artery, radial artery, interosseous artery, and common ulnar interosseous trunk were patent except for some mild atherosclerotic disease in the radial artery. The left upper extremity loop graft had good flow throughout it, with no narrowings or central narrowings. 5 mm angioplasty balloon was advanced over the wire used to perform angioplasty of the axillary artery. This was followed by a 6 mm drug-coated balloon which was inflated for 3 minutes. After inflation, digital subtraction angiography demonstrated no significant steal into the left upper extremity AV graft, and there was resolution of her symptoms. The axillary artery had no residual narrowing. No distal embolization. Over 0.035 inch wire, pullback angiography was performed to that she has demonstrating no significant narrowing of the left subclavian artery. Wire and catheter were retracted into the aorta. Sheath was removed and exchanged for 6 [place] Pro-glide which was successfully deployed achieving near immediate hemostasis. Patient tolerated the procedure well. No immediate postprocedure complication. The right common femoral artery was pulsatile after the procedure. FINDINGS: Please see the [employer] report above IMPRESSION: 1. Successful selection of the left brachial artery, left axillary artery, and left subclavian artery from a right common femoral approach. 2. Successful angiography of the right lower extremity, left upper extremity, and fistulogram. There was clinical change, recurrent left upper extremity symptoms. 3. Successful angioplasty of the left axillary artery. 4. Successful closure of the right common femoral artery arteriotomy with a 6 [place] Perclose.
[2017-08-17] MEDS ORDERED: PERCOCET 5/325 PO ONE (10:48)
[2017-08-17 12:22] VITALS: BP 148/55
== END 2017-08-17 13:10 | disposition home or self-care (01) ==
LOC: CATHLABREC 06:34
PROVIDERS: ATTEND Radiology Diagnostic Radiology
DX: T82.898A Other specified complication of vascular prosthetic devices, implants and grafts, initial encounter (principal); Y83.2 Surgical operation with anastomosis, bypass or graft as the cause of abnormal reaction of the patient, or of later complication, without mention of misadventure at the time of the procedure; Z79.01 Long term (current) use of anticoagulants
CPT/HCPCS: 36415; 36901; 37246; 84132; 85610; 85730; C1725; C1760; C1769; C1887; C2623; J0583; J2250; J3010; J7040; Q9967

== ENCOUNTER 2017-11-09 07:24 | Day surgery (SDC) | payer MEDICARE ==
[~2017-11-09 07:24] MED LIST changes: -NACL 0.9% 1000 ML 1,000 ML IV SCH; +VANCOMYCIN/0.45 NS 1 GM/250 ML 1 GM/250 ML BAG IV NR; -VANCOMYCIN/NS 1 GM/250 ML 1 GM/250 ML BAG IV NR
[2017-11-09 09:16] LABS: Basophils # (Auto) 0.1 K/mm3 (0.0-0.1); Basophils % (Auto) 1.1 % (0.0-1.8); Eosinophils # (Auto) 0.1 K/mm3 (0.0-0.4); Eosinophils % (Auto) 2.7 % (0.0-4.3); Hematocrit 27.9 % (30.3-42.9); Hemoglobin 9.2 gm/dl (10.1-14.3); Lymphocytes # (Auto) 1.1 K/mm3 (1.2-5.4); Lymphocytes % (Auto) 20.5 % (13.4-35.0); Mean Corpuscular HGB Conc 33 % (30-34); Mean Corpuscular Hemoglobin 32 pg (28-32); Mean Corpuscular Volume 97 fl (79-97); Monocytes # (Auto) 0.5 K/mm3 (0.0-0.8); Monocytes % (Auto) 8.5 % (0.0-7.3); Platelet Count 189 K/mm3 (140-440); Red Blood Count 2.88 M/mm3 (3.65-5.03); Red Cell Distribution Width 17.3 % (13.2-15.2)
[2017-11-09 09:24] LABS: INR 1.04 (0.87-1.13)
[2017-11-09 09:25] LABS: Partial Thromboplastin Time 24.6 Sec. (24.2-36.6)
[2017-11-09 09:29] LABS: Calcium 9.5 mg/dL (8.4-10.2)
[2017-11-09] MEDS: NACL 0.9% 1000 ML 1,000 ML IV SCH ×2 (10:05→11:30)
[2017-11-09] MEDS ORDERED: HEPARIN/NS 5000 UNIT/500ML(CATH LAB) 0 ML IR ONE (11:17)
[2017-11-09] MEDS ORDERED: HEPARIN 10,000 UNITS/10 ML ONE (11:17)
[2017-11-09] MEDS ORDERED: XYLOCAINE 2% INFILTRATI ONE (11:18)
[2017-11-09] MEDS ORDERED: NACL 0.9% 100 ML ONE (11:22)
[2017-11-09] MEDS ORDERED: ANGIOMAX IV ONE ×2 (11:22→11:42)
[2017-11-09] MEDS ORDERED: NACL 0.9% 500 ML 1,000 ML ONE (11:22)
--- NOTE | 2017-11-09 11:28 | Operative Report ---
Operative Report Operative Report: EXAM: 1. Ultrasound-guided access of the right lower extremity 2. Angiography of the right lower extremity 3. Third order a selection of the left radial artery with angiography of the left upper extremity (clinical change) 4. Fistulogram of the left upper extremity 5. Angioplasty of the left brachial artery with a 4 mm x 220 mm angioplasty balloon 6. Angioplasty of the left proximal, mid, and distal brachial artery with 5 mm x 150 mm INPACT drug coated balloon(x 2) 7. Angioplasty of left left axillary artery with a 5 mm x 20 mm cutting balloon 8. Angioplasty of the left axillary artery with a 6 mm x 80 mm INPACT drug coated balloon 9. Attempted Perclose of the right common femoral artery which was unsuccessful due to failure to capture the thread 10. Closure of the right common femoral artery with a 6 [place] Mynx device DATE: 11/09/17 PAIN MANAGEMENT NURSE: PATTI FONTANEZ MD INDICATION: Patient with hypercoagulability condition (lupus anticoagulant and HIT) and left upper extremity hand pain from recurrent hand ischemia. MEDICATIONS: Please see nursing report for full details. DEVICES: 5 mm x 150 mm INPACT DCB x 2 6 mm x 80 mm INPACT DCB 5 mm x 20 mm cutting balloon 4 mm x 220 mm angioplasty balloon CONTRAST: Please see lab technician report for full details. PROCEDURE: The risks, benefits, and alternatives were discussed with the patient and her family; written informed consent was obtained. The patient's groins were prepped and draped in a sterile fashion. The patient' s left arm was extended on an arm board. The right common femoral artery was assessed with ultrasound was patent. Under direct ultrasound guidance, right common femoral artery was accessed with a 21- gauge micropuncture needle. 0.018 inch wire was passed into the aorta. Needle was exchanged for transitional dilator. Wire was exchanged for 0.035 inch Pollard wire. Transitional dilator was changed for 5 [place] sheath. Digital subtraction angiography was performed demonstrating patency of the right external iliac artery, common femoral artery, and proximal superficial femoral artery and profunda femoral artery. There is an appropriate access, above the bifurcation and below the inferior epigastric artery. 5 [place] catheter was used to select the left subclavian artery, left axillary artery, left brachial artery, and left radial artery. Digital subtraction angiography was performed with pullback angiography. The left subclavian artery and vertebral artery were patent. The left axillary artery had a 60% narrowing in it and a few centimeters distally which was noncontiguous. The left brachial artery was about 40% intermittently narrowed throughout its length with a focal irregularity distally likely secondary to prior bypass graft. The left radial artery and interosseous artery were patent. The left ulnar artery had moderate diffuse narrowing throughout it. The AV graft was patent throughout its course with no evidence of peripheral narrowing or central narrowing of the graft. Central veins are patent. Patient was started on Angiomax. 6 [place] 90 cm sheath was then advanced into the left axillary artery. 4 mm x 220 mm angioplasty balloon was used to predilated the left brachial artery throughout its course and a left axillary artery. 5 mm x 150 mm INPACT DCB was used to perform angioplasty throughout the length of the left brachial artery and left axillary artery. Sheath was exchanged for 6 [place] 65 cm sheath advanced into the left subclavian artery. 5 mm x 20 mm cutting balloon and she is to perform cutting angioplasty at the left axillary artery. 6 mm x 80 mm INPACT DCB was used to perform angioplasty at the left axillary artery. Digital subtraction angiography was then performed demonstrating minimal residual narrowing in the left brachial artery and left axillary artery, with resolution of the patient's symptoms. No distal embolization. Irregularity in the distal brachial artery was still present and is likely secondary to prior surgery. Wire and catheter were retracted into the aorta. Sheath was removed and exchanged for 6 [place] Pro-glide which was deployed, but suture capture did not occur. The wire was reinserted and the suture was removed. 6 [place] sheath was advanced over the wire. 6 [place] mynx device was then deployed achieving immediate hemostasis. Patient tolerated the procedure well. No immediate postprocedure complication. The right common femoral artery was palpable after the procedure. FINDINGS: Please see the lab technician report above IMPRESSION: 1. Successful selection of the left radial artery, brachial artery, left axillary artery, and left subclavian artery from a right common femoral approach. 2. Successful angiography of the right lower extremity, left upper extremity, and fistulogram. There was clinical change, recurrent left upper extremity symptoms. 3. Successful angioplasty of the left axillary artery. 4. Successful angioplasty of the left brachial artery. 5. Successful closure of the right common femoral artery arteriotomy with a 6 [place] mynx.
--- NOTE | 2017-11-09 11:28 | Short Stay Summary ---
Short Stay Documentation Date of service: 11/09/17 Narrative H&P: 67 year old female with LUE hand pain from arterial steal - History Principal diagnosis: Hand pain/ischemia H&P: obtained from office - Allergies and Medications Current Medications: Allergies aspirin Allergy (Verified 02/11/17 16:22) Anaphylaxis ciprofloxacin Allergy (Verified 02/11/17 16:22) Hives heparin Allergy (Verified 02/13/17 18:52) HIT Per Pt statement. W/U as an outpt with hematology. ketorolac tromethamine [From Toradol] Allergy (Verified 02/11/17 16:22) Hives lorazepam [From Ativan] Allergy (Verified 02/11/17 16:22) Itching nifedipine [From Procardia] Allergy (Verified 02/11/17 16:22) Swelling OF THROAT nitrofurantoin [From Macrobid] Allergy (Verified 02/11/17 16:22) Hives nitrofurantoin macrocrystalline [From Macrobid] Allergy (Verified 02/11/17 16:22 ) Hives Penicillins Allergy (Verified 02/11/17 16:22) Hives propoxyphene napsylate [From Darvocet-N] Allergy (Verified 02/11/17 16:22) Itching Sulfa (Sulfonamide Antibiotics) Adverse Reaction (Verified 02/11/17 16:22) Swelling Home Medications Medication Instructions Recorded Confirmed Last Taken Type amLODIPine [Norvasc] 5 mg PO DAILY 04/15/15 11/09/17 11/09/17 05:30 History B Complex 11/Folic/C/Biot/Zinc 1 each PO QDAY #30 tablet 02/07/17 11/09/1711/08 Rx [Dialyvite with Zinc Tablet] Folic Acid [Folvite] 1 mg PO QDAY #30 tablet 02/07/17 11/09/17 11/08/17 Rx OXcarbazepine [Trileptal] 300 mg PO TID #90 tablet 02/07/17 11/09/17 11/08/17 Rx Carvedilol [Coreg] 12.5 mg PO QDAY #30 tablet 02/18/17 11/09/17 11/08/17 Rx Cinacalcet [Sensipar] 60 mg PO QDAY #30 tablet 02/18/17 11/09/1711/08/18 Rx Gabapentin [Neurontin] 300 mg PO BID #60 capsule 02/18/17 11/09/17 11/08/17 Rx Warfarin [Coumadin] 7.5 mg PO DAILY@1700 #30 tablet 02/18/17 11/09/17 11/06/17 Rx predniSONE [Deltasone] 10 mg PO QDAY tablet 02/18/17 11/09/17 11/08/17 Rx tiZANidine [Zanaflex] 4 mg PO HS #30 tablet 02/18/17 11/09/17 11/08/17 Rx HYDROcodone/ACETAMINOPHEN [[place] 1 each PO Q6H PRN #40 tablet 07/06/17 11/09/17 11/08/17 Rx 7.5-325 Tablet] ALPRAZolam [Xanax TAB] 0.5 mg PO TID 11/09/17 11/09/17 11/08/17 History Active Medications Sodium Chloride (Nacl 0.9% 1000 Ml) 1,000 mls @ 42 mls/hr IV DIRECT INDIO Last Admin: 11/09/17 10:05 Dose: 42 mls/hr Vancomycin HCl (Vancomycin/0.45 Ns 1 Gm/250 Ml) 1 gm in 250 mls @ 166.667 mls/ hr IV PREOP NR; Protocol Stop: 11/09/17 23:00 Last Admin: 11/09/17 10:09 Dose: 166.667 mls/hr - Physical exam General appearance: no acute distress Lungs: Normal air movement Gastrointestinal: normal Extremities: abnormal (left hand pain) - Brief post op/procedure progress note Date of procedure: 11/09/17 Pre-op diagnosis: Left upper extremity ischemia Post-op diagnosis: same Procedure: revasc of the left upper extremity Anesthesia: local (w/ conscious sedation) Surgeon: PATTI FONTANEZ Estimated blood loss: minimal Condition: stable - Hospital course Hospital course: can be discharged after 4 hrs from closure - Disposition Condition at discharge: Stable Disposition: [id number] TO HOME OR SELFCARE - Discharge Diagnoses (1) Ischemia of extremity Status: Acute (2) Anticoagulated on Coumadin Status: Chronic (3) HTN (hypertension) Status: Chronic (4) Hypertensive kidney disease with ESRD on dialysis Status: Chronic Short Stay Discharge Plan Activity: advance as tolerated Weight Bearing Status: Weight Bear as Tolerated Diet: renal Wound: keep clean and dry, other (do not lift more than 10 lbs for 1 week ; remove pressure dressing tomorrow morning) Follow up with: REKHA RUBIN MD [Primary Care Provider] - 7 Days Prescriptions: Clopidogrel [Plavix] 75 mg PO QDAY #30 tablet
[2017-11-09] MEDS: SUBLIMAZE ONE ×4 (11:34→12:35)
[2017-11-09] MEDS: VERSED ONE ×4 (11:34→12:35)
[2017-11-09] MEDS ORDERED: APRESOLINE ONE (11:39)
[2017-11-09] MEDS ORDERED: NACL 0.9% 50 ML ONE (11:43)
--- NOTE | 2017-11-09 13:02 | Post Operative Note ---
Date of procedure: 11/09/17 Pre-op diagnosis: LUE arterial ischemia Post-op diagnosis: same Findings: Resolution of hand pain after procedure Procedure: 1. Ultrasound-guided access of the right lower extremity 2. Angiography of the right lower extremity 3. Third order a selection of the left radial artery with angiography of the left upper extremity (clinical change) 4. Angioplasty of the left brachial artery with a 4 mm x 220 mm angioplasty balloon 5. Angioplasty of the left proximal, mid, and distal brachial artery with 5 mm x 150 mm INPACT drug coated balloon(x 2) 6. Angioplasty of left left axillary artery with a 5 mm x 20 mm cutting balloon 7. Angioplasty of the left axillary artery with a 6 mm x 80 mm INPACT drug coated balloon 8. Attempted Perclose of the right common femoral artery which was unsuccessful due to failure to capture the thread 9. The right common femoral artery with a 6 [place] Mynx device Anesthesia: local (w/ conscious sedation) Surgeon: PATTI FONTANEZ Estimated blood loss: minimal Condition: stable Disposition: other (OPPU)
[2017-11-09] MEDS ORDERED: PLAVIX PO SCH (14:46)
[2017-11-09] MEDS ORDERED: PLAVIX ONE (14:47)
[2017-11-09 16:03] VITALS: BP 146/70
--- NOTE | 2017-11-14 12:20 | Vascular Lab Report ---
MISCELLANEOUS VESSEL IDENTIFICATION: COMMENTS ON THE SCAN: The right common femoral artery was identified and under real-time ultrasound guidance was cannulated. IMPRESSION: Successful ultrasound guided arterial cannulation.
== END 2017-11-09 17:20 | disposition home or self-care (01) ==
LOC: CATHLABREC 07:24
PROVIDERS: ATTEND Radiology Diagnostic Radiology
DX: I12.0 Hypertensive chronic kidney disease with stage 5 chronic kidney disease or end stage renal disease (principal); N18.6 End stage renal disease; Z79.01 Long term (current) use of anticoagulants; Z79.899 Other long term (current) drug therapy; F64.9 Gender identity disorder, unspecified; Z88.2 Allergy status to sulfonamides; Z88.0 Allergy status to penicillin; Z88.8 Allergy status to other drugs, medicaments and biological substances; Z82.49 Family history of ischemic heart disease and other diseases of the circulatory system; D68.69 Other thrombophilia; I70.219 Atherosclerosis of native arteries of extremities with intermittent claudication, unspecified extremity
CPT/HCPCS: 36217; 36415; 37246; 37247; 76937; 80048; 85025; 85610; 85730; 96365; C1725; C1760; C1769; C1887; C2623; J0583; J2250; J3010; J3370; J7030; J7040; J0360; J1644; Q9967

== ENCOUNTER 2018-04-16 06:31 | Inpatient (IN) | payer MEDICAID, MEDICARE ==
--- NOTE | 2018-04-16 08:53 | Emergency Department Report ---
ED Shortness of Breath HPI - General Chief Complaint: Dyspnea/Respdistress Stated Complaint: DIFFICULTY IN BREATHING Time Seen by Provider: 04/16/18 08:36 Source: patient, EMS Mode of arrival: Stretcher Limitations: Other - History of Present Illness Initial Comments: Patient is 68 years old female with history of end-stage renal disease on hemodialysis, congestive heart failure and hypertension. Patient presented to the ER complaining of shortness of breath and cough. Patient stated that she had dialysis 2 days ago and she stated that she did not missed any dialysis. Patient denied any chest pain or fever. MD Complaint: shortness of breath, cough -: Last night Severity: moderate Known History Of: congestive heart failure - Related Data Home Medications Medication Instructions Recorded Confirmed Last Taken Carvedilol [Coreg] 3.125 mg PO BID 04/16/18 04/16/18 Unknown Ergocalciferol [Vitamin D2] 1 cap PO QWEEK 04/16/18 04/16/18 Unknown Pantoprazole [Protonix TAB] 20 mg QDAY 04/16/18 04/16/18 Unknown Warfarin Sodium 10 mg PO DAILY 04/16/18 04/16/18 Unknown Previous Rx's Medication Instructions Recorded Last Taken Type Folic Acid [Folvite] 1 mg PO QDAY #30 tablet 02/07/17 11/08/17 Rx OXcarbazepine [Trileptal] 300 mg PO TID #90 tablet 02/07/17 11/08/17 Rx Gabapentin [Neurontin] 300 mg PO BID #60 capsule 02/18/17 11/08/17 Rx Allergies Allergy/AdvReac Type Severity Reaction Status Date / Time aspirin Allergy Anaphylaxis Verified 02/11/17 16:22 ciprofloxacin Allergy Hives Verified 02/11/17 16:22 heparin Allergy HIT Verified 02/13/17 18:52 ketorolac tromethamine Allergy Hives Verified 02/11/17 16:22 [From Toradol] lorazepam [From Ativan] Allergy Itching Verified 02/11/17 16:22 nifedipine [From Procardia] Allergy Swelling Verified 02/11/17 16:22 OF THROAT nitrofurantoin Allergy Hives Verified 02/11/17 16:22 [From Macrobid] nitrofurantoin Allergy Hives Verified 02/11/17 16:22 macrocrystalline [From Macrobid] Penicillins Allergy Hives Verified 02/11/17 16:22 propoxyphene napsylate Allergy Itching Verified 02/11/17 16:22 [From Darvocet-N] Sulfa (Sulfonamide AdvReac Swelling Verified 02/11/17 16:22 Antibiotics) ED Review of Systems ROS: Stated complaint: DIFFICULTY IN BREATHING Other details as noted in HPI Comment: All other systems reviewed and negative Constitutional: denies: chills, fever Respiratory: cough, orthopnea, shortness of breath, SOB with exertion, SOB at rest. denies: wheezing Cardiovascular: palpitations. denies: chest pain Endocrine: denies: excessive sweating, flushing, intolerance to cold, intolerance to heat Gastrointestinal: denies: abdominal pain, nausea, vomiting, diarrhea, constipation, hematemesis, melena, hematochezia Musculoskeletal: denies: back pain Neurological: denies: headache, weakness, paresthesias, confusion, abnormal gait ED Past Medical Hx - Past Medical History Previous Medical History?: Yes Hx Hypertension: Yes Hx Heart Attack/AMI: No Hx Congestive Heart Failure: Yes Hx Diabetes: No Hx Deep Vein Thrombosis: Yes Hx GERD: Yes Hx Renal Disease: Yes Hx Arthritis: Yes Hx Headaches / Migraines: Yes Hx Seizures: No Hx Kidney Stones: Yes Hx Asthma: Yes Hx COPD: No Additional medical history: Bone disease, dialysis t, th, sat. - Surgical History Hx Cholecystectomy: Yes Hx Appendectomy: Yes Additional Surgical History: Screws in right foot, vascular access left arm for dialysis - Social History Smoking Status: Never Smoker Substance Use Type: None - Medications Home Medications: Home Medications Medication Instructions Recorded Confirmed Last Taken Type Folic Acid [Folvite] 1 mg PO QDAY #30 tablet 02/07/17 04/16/18 11/08/17 Rx OXcarbazepine [Trileptal] 300 mg PO TID #90 tablet 02/07/17 04/16/18 11/08/17 Rx Gabapentin [Neurontin] 300 mg PO BID #60 capsule 02/18/17 04/16/18 11/08/17 Rx Carvedilol [Coreg] 3.125 mg PO BID 04/16/18 04/16/18 Unknown History Ergocalciferol [Vitamin D2] 1 cap PO QWEEK 04/16/18 04/16/18 Unknown History Pantoprazole [Protonix TAB] 20 mg QDAY 04/16/18 04/16/18 Unknown History Warfarin Sodium 10 mg PO DAILY 04/16/18 04/16/18 Unknown History ED Physical Exam - General Limitations: No Limitations, Other General appearance: alert, in distress (moderate respiratory distress) - Head Head exam: Present: atraumatic, normocephalic, normal inspection - Eye Eye exam: Present: normal appearance, PERRL - ENT ENT exam: Present: normal exam, normal orophraynx, mucous membranes moist - Neck Neck exam: Present: normal inspection, full ROM. Absent: tenderness, meningismus, lymphadenopathy, thyromegaly - Respiratory Respiratory exam: Present: normal lung sounds bilaterally, decreased breath sounds. Absent: respiratory distress, wheezes, rales, rhonchi, stridor, chest wall tenderness, accessory muscle use - Cardiovascular Cardiovascular Exam: Present: tachycardia - GI/Abdominal GI/Abdominal exam: Present: soft, normal bowel sounds. Absent: distended, tenderness, guarding, rebound, rigid, organomegaly, mass, bruit, pulsatile mass , hernia - Extremities Exam Extremities exam: Present: normal inspection, full ROM, normal capillary refill - Back Exam Back exam: Present: normal inspection, full ROM. Absent: CVA tenderness (R), CVA tenderness (L), muscle spasm, paraspinal tenderness, vertebral tenderness, rash noted - Neurological Exam Neurological exam: Present: alert, oriented X3, CN II-XII intact, normal gait, reflexes normal - Skin Skin exam: Present: warm, intact, normal color ED Course Vital Signs 04/16/18 04/16/18 04/16/18 07:18 07:21 08:00 Temperature 98.0 F Pulse Rate 110 H Pulse Rate [ Bilateral Upper Lobe] Respiratory 16 Rate Respiratory Rate [Bilateral Upper Lobe] Blood Pressure 180/80 O2 Sat by Pulse 83 L 90 100 Oximetry 04/16/18 04/16/18 04/16/18 09:00 09:30 10:00 Temperature 99.3 F 99.2 F Pulse Rate 102 H 95 H 95 H Pulse Rate [ Bilateral Upper Lobe] Respiratory 16 16 18 Rate Respiratory Rate [Bilateral Upper Lobe] Blood Pressure 169/77 158/76 158/76 O2 Sat by Pulse 86 92 99 Oximetry 04/16/18 04/16/18 04/16/18 10:10 10:30 10:46 Temperature Pulse Rate 92 H 94 H 96 H Pulse Rate [ Bilateral Upper Lobe] Respiratory 17 14 17 Rate Respiratory Rate [Bilateral Upper Lobe] Blood Pressure 167/144 167/144 145/64 O2 Sat by Pulse 100 99 100 Oximetry 04/16/18 04/16/18 04/16/18 10:48 10:55 11:00 Temperature Pulse Rate 89 Pulse Rate [ 90 94 H Bilateral Upper Lobe] Respiratory 18 Rate Respiratory 18 20 Rate [Bilateral Upper Lobe] Blood Pressure 134/60 O2 Sat by Pulse 100 Oximetry 04/16/18 04/16/18 04/16/18 11:16 11:30 11:45 Temperature Pulse Rate 87 86 89 Pulse Rate [ Bilateral Upper Lobe] Respiratory 17 16 19 Rate Respiratory Rate [Bilateral Upper Lobe] Blood Pressure 117/54 123/56 135/61 O2 Sat by Pulse 98 99 100 Oximetry 04/16/18 04/16/18 04/16/18 11:50 12:00 12:15 Temperature 98.9 F Pulse Rate 89 87 86 Pulse Rate [ Bilateral Upper Lobe] Respiratory 20 15 14 Rate Respiratory Rate [Bilateral Upper Lobe] Blood Pressure 135/61 139/63 144/63 O2 Sat by Pulse 100 100 Oximetry 04/16/18 04/16/18 04/16/18 12:30 12:45 12:46 Temperature Pulse Rate 83 82 85 Pulse Rate [ Bilateral Upper Lobe] Respiratory 14 15 Rate Respiratory Rate [Bilateral Upper Lobe] Blood Pressure 134/60 120/55 120/55 O2 Sat by Pulse 98 98 Oximetry 04/16/18 04/16/18 04/16/18 13:00 13:15 13:30 Temperature Pulse Rate 86 83 83 Pulse Rate [ Bilateral Upper Lobe] Respiratory 14 15 Rate Respiratory Rate [Bilateral Upper Lobe] Blood Pressure 140/62 139/57 132/57 O2 Sat by Pulse 98 99 Oximetry 04/16/18 04/16/18 04/16/18 13:45 14:00 14:15 Temperature Pulse Rate 81 82 84 Pulse Rate [ Bilateral Upper Lobe] Respiratory Rate Respiratory Rate [Bilateral Upper Lobe] Blood Pressure 141/53 138/57 131/57 O2 Sat by Pulse Oximetry 04/16/18 04/16/18 14:30 14:35 Temperature Pulse Rate 89 86 Pulse Rate [ Bilateral Upper Lobe] Respiratory Rate Respiratory Rate [Bilateral Upper Lobe] Blood Pressure 142/64 151/67 O2 Sat by Pulse Oximetry - Reevaluation(s) Reevaluation #1: 04/16/18 09:32 Patient is alert, oriented 3. Her potassium is 8. I started patient on 1 g of calcium chloride to protect her heart, albuterol breathing treatment, dextrose 50 and insulin 10 units in 60 g oral Kayexalate by mouth. I paged Dr. Cuevas is the sales teacher for this patient. ED Medical Decision Making - Lab Data Result diagrams: 04/16/18 08:29 04/16/18 12:06 - Radiology Data Radiology results: report reviewed Referring Physician: AVNI DELGADO Patient Name: ORIN HERNANDEZ Date of : 1950 Sex: Female Report Date: 2018-04-16 Report Status: Finalized Findings [address] [address] XRay Report Signed Patient: ORIN HERNANDEZ MR#: [id number] : 1950 Acct:[id number] Age/Sex: 68 / F ADM Date: 04/16/18 Loc: ED Attending Dr: Ordering Physician: AVNI DELGADO Date of Service: 04/16/18 Procedure(s): XR chest 1V ap Accession Number(s): [id number] cc: AVNI DELGADO Fluoro Time In Minutes: AP CHEST: HISTORY: Shortness of breath Cardiomegaly is stable since 02/03/17. Moderate pulmonary venous congestion has increased slightly since the previous exam. The lungs are generally clear. No large infiltrate, pleural effusion or pneumothorax. The bony structures are grossly intact. IMPRESSION: Cardiomegaly and pulmonary venous congestion. Transcribed By: TTR Dictated By: VIKTORIA DELGADO JR, MD Electronically Authenticated By: VIKTORIA DELGADO JR, MD Signed Date/Time: 04/16/18926 DD/ 5 TD/TT: 04/16/18926 - Medical Decision Making Patient is 68 years old female with history of end-stage renal disease on hemodialysis, congestive heart failure and hypertension. Patient presented to the ER complaining of shortness of breath and cough. Patient stated that she had dialysis 2 days ago and she stated that she did not missed any dialysis. Patient denied any chest pain or fever. Patient is alert, oriented 3. Her potassium is 8. I started patient on 1 g of calcium chloride, albuterol breathing treatment, dextrose 50 and insulin 10 units and 60 g oral Kayexalate by mouth. I paged Dr. Cuevas, the sales teacher for this patient. 04/16/18 09:37: I discussed the patient is Dr. Geoffrey Gomez, inform him of the patient and her potassium of 8.2. Dr. Gomez stated that he is coming down to evaluate the patient. I discussed the patient is Dr. Morrell, he advised to admit patient to telemetry. Critical Care Time: Yes Critical care time in (mins) excluding proc time.: 45 Critical care attestation.: If time is entered above; I have spent that time in minutes in the direct care of this critically ill patient, excluding procedure time. ED Disposition Clinical Impression: Acute hyperkalemia, End stage renal disease, Hypertensive kidney disease with ESRD on dialysis Disposition: OP ADMIT IP TO THIS HOSP Is pt being admited?: Yes Condition: Stable
[2018-04-16 08:56] LABS: Basophils # (Auto) 0.1 K/mm3 (0.0-0.1); Basophils % (Auto) 0.7 % (0.0-1.8); Eosinophils # (Auto) 0.2 K/mm3 (0.0-0.4); Eosinophils % (Auto) 1.2 % (0.0-4.3); Hematocrit 25.8 % (30.3-42.9); Hemoglobin 8.8 gm/dl (10.1-14.3); Lymphocytes # (Auto) 0.8 K/mm3 (1.2-5.4); Lymphocytes % (Auto) 5.4 % (13.4-35.0); Mean Corpuscular HGB Conc 34 % (30-34); Mean Corpuscular Hemoglobin 33 pg (28-32); Mean Corpuscular Volume 98 fl (79-97); Monocytes # (Auto) 0.8 K/mm3 (0.0-0.8); Platelet Count 214 K/mm3 (140-440); Red Blood Count 2.63 M/mm3 (3.65-5.03)
[2018-04-16 09:06] LABS: Red Cell Distribution Width 20.2 % (13.2-15.2)
[2018-04-16 09:14] LABS: Calcium 8.3 mg/dL (8.4-10.2)
[2018-04-16] MEDS ORDERED: KIONEX PO ONE (09:24)
[2018-04-16] MEDS ORDERED: PROVENTIL IH ONE ×2 (09:24→10:48)
[2018-04-16] MEDS ORDERED: D50W (25GM) Syringe IV ONE ×2 (09:24→10:39)
[2018-04-16] MEDS ORDERED: HumuLIN R IV ONE (09:24)
--- NOTE | 2018-04-16 09:28 | XRay Report ---
AP CHEST: HISTORY: Shortness of breath Cardiomegaly is stable since 02/03/17. Moderate pulmonary venous congestion has increased slightly since the previous exam. The lungs are generally clear. No large infiltrate, pleural effusion or pneumothorax. The bony structures are grossly intact. IMPRESSION: Cardiomegaly and pulmonary venous congestion.
[2018-04-16] MEDS ORDERED: CALCIUM CHLORIDE 1,000 MG in NACL 0.9% 100 ML IV ONE (10:15)
[2018-04-16] MEDS ORDERED: NACL 0.9% 100 ML IV PRN (10:35)
[2018-04-16] MEDS ORDERED: HumuLIN R ONE (10:40)
[2018-04-16] MEDS ORDERED: NORVASC PO SCH (11:00)
--- NOTE | 2018-04-16 11:26 | History and Physical Report ---
History of Present Illness Date of examination: 04/16/18 Date of admission: 04/16/18 09:46 Chief complaint: Worsening shortness of breath 1 day History of present illness: Very pleasant 68-year-old female patient with significant history of end-stage renal disease on hemodialysis hypertension presented to the emergency room with worsening shortness of breath,Patient is due for hemodialysis today Initial workup is consistent with pulmonary edema fluid overload and severe hyperkalemia, which was treated appropriately in ED Patient claims compliance with dialysis Chest x-ray findings consistent with fluid overload and congestion Nephrology was consulted for stat hemodialysis Past History Past Medical History: dialysis, ESRD, hypertension, other (neuropathy) Past Surgical History: appendectomy, cholecystectomy, Other (AV fistula) Social history: denies: smoking, alcohol abuse, prescription drug abuse Family history: hypertension Medications and Allergies Allergies Allergy/AdvReac Type Severity Reaction Status Date / Time aspirin Allergy Anaphylaxis Verified 02/11/17 16:22 ciprofloxacin Allergy Hives Verified 02/11/17 16:22 heparin Allergy HIT Verified 02/13/17 18:52 ketorolac tromethamine Allergy Hives Verified 02/11/17 16:22 [From Toradol] lorazepam [From Ativan] Allergy Itching Verified 02/11/17 16:22 nifedipine [From Procardia] Allergy Swelling Verified 02/11/17 16:22 OF THROAT nitrofurantoin Allergy Hives Verified 02/11/17 16:22 [From Macrobid] nitrofurantoin Allergy Hives Verified 02/11/17 16:22 macrocrystalline [From Macrobid] Penicillins Allergy Hives Verified 02/11/17 16:22 propoxyphene napsylate Allergy Itching Verified 02/11/17 16:22 [From Darvocet-N] Sulfa (Sulfonamide AdvReac Swelling Verified 02/11/17 16:22 Antibiotics) Home Medications Medication Instructions Recorded Confirmed Last Taken Type Folic Acid [Folvite] 1 mg PO QDAY #30 tablet 02/07/17 04/16/18 11/08/17 Rx OXcarbazepine [Trileptal] 300 mg PO TID #90 tablet 02/07/17 04/16/18 11/08/17 Rx Gabapentin [Neurontin] 300 mg PO BID #60 capsule 02/18/17 04/16/18 11/08/17 Rx Carvedilol [Coreg] 3.125 mg PO BID 04/16/18 04/16/18 Unknown History Ergocalciferol [Vitamin D2] 1 cap PO QWEEK 04/16/18 04/16/18 Unknown History Pantoprazole [Protonix TAB] 20 mg QDAY 04/16/18 04/16/18 Unknown History Warfarin Sodium 10 mg PO DAILY 04/16/18 04/16/18 Unknown History ALPRAZolam [Xanax TAB] 0.5 mg PO TID #6 tablet 04/18/18 Unknown Rx Carvedilol [Coreg] 12.5 mg PO QDAY tablet 04/18/18 Unknown Rx Cinacalcet [Sensipar] 60 mg PO QDAY tablet 04/18/18 Unknown Rx Clopidogrel [Plavix] 75 mg PO QDAY tablet 04/18/18 Unknown Rx HYDROcodone/APAP 7.5-325 [[place] 1 each PO BID PRN #6 tablet 04/18/18 Unknown Rx 7.5-325 mg TAB] Ondansetron [Zofran TAB] 4 mg PO Q8HR PRN #15 tablet 04/18/18 Unknown Rx predniSONE [Deltasone] 10 mg PO QDAY tablet 04/18/18 Unknown Rx tiZANidine [Zanaflex] 4 mg PO HS tablet 04/18/18 Unknown Rx Active Meds: Active Medications Acetaminophen/Hydrocodone Bitart ([place] 7.5/325) 1 each PO Q6H PRN PRN Reason: Pain Alprazolam (Xanax) 0.5 mg PO TID [facility] Amlodipine Besylate (Norvasc) 5 mg PO QDAY [facility] Carvedilol (Coreg) 12.5 mg PO QDAY [facility] Cinacalcet (Sensipar) 60 mg PO QDAY [facility] Clopidogrel Bisulfate (Plavix) 75 mg PO QDAY [facility] Folic Acid (Folvite) 1 mg PO QDAY [facility] Gabapentin (Neurontin) 300 mg PO BID [facility] Sodium Chloride (Nacl 0.9%) 100 mls @ 999 mls/hr IV MIGUEL ÁNGEL PRN PRN Reason: Hypotension Oxcarbazepine (Trileptal) 300 mg PO TID [facility] Prednisone (Deltasone) 10 mg PO QDAY [facility] Tizanidine HCl (Zanaflex) 4 mg PO HS [facility] Warfarin Sodium (Coumadin) 7.5 mg PO DAILY@1700 [facility]; Protocol Review of Systems Constitutional: no weight loss, no weight gain Ears, nose, mouth and throat: no nasal congestion, no nasal discharge Cardiovascular: orthopnea, shortness of breath, no chest pain, no palpitations Respiratory: shortness of breath, no cough with sputum Gastrointestinal: no abdominal pain, no nausea, no vomiting Genitourinary Female: no flank pain, no dysuria Musculoskeletal: no myalgias, no arthritis Integumentary: no rash, no lesions Psychiatric: no anxiety, no depression Endocrine: no cold intolerance, no heat intolerance Hematologic/Lymphatic: no easy bruising, no easy bleeding Allergic/Immunologic: no urticaria, no allergic rhinitis Exam - Constitutional Vitals: Temp Pulse Resp BP Pulse Ox 99.3 F 94 H 20 167/144 100 04/16/18 09:00 04/16/18 10:55 04/16/18 10:55 04/16/18 10:10 04/16/18 10:10 General appearance: Present: no acute distress, well-nourished - EENT Eyes: Present: PERRL, EOM intact - Neck Neck: Present: supple, normal ROM - Respiratory Respiratory effort: normal Respiratory: bilateral: diminished, rales, negative: rhonchi, wheezing - Cardiovascular Rhythm: regular Heart Sounds: Present: S1 & S2 - Extremities Extremities: no ischemia Extremity abnormal: edema - Abdominal General gastrointestinal: Present: soft, non-tender, non-distended, normal bowel sounds - Integumentary Integumentary: Present: clear, warm - Musculoskeletal Musculoskeletal: strength equal bilaterally, generalized weakness - Psychiatric Psychiatric: appropriate mood/affect, cooperative - Neurologic Neurologic: CNII-XII intact, moves all extremities Results - Labs CBC & Chem 7: 04/18/18 06:59 04/18/18 06:59 Labs: Abnormal lab results 04/16/18 04/16/18 Range/Units 08:29 08:29 WBC 15.0 H (4.5-11.0) K/mm3 RBC 2.63 L (3.65-5.03) M/mm3 Hgb 8.8 L (10.1-14.3) gm/dl Hct 25.8 L (30.3-42.9) % MCV 98 H (79-97) fl MCH 33 H (28-32) pg RDW 20.2 H (13.2-15.2) % Lymph % (Auto) 5.4 L (13.4-35.0) % Lymph # 0.8 L (1.2-5.4) K/mm3 Seg Neutrophils % 87.7 H (40.0-70.0) % Seg Neutrophils # 13.1 H (1.8-7.7) K/mm3 Potassium 8.2 H* (3.6-5.0) mmol/L Chloride 93.2 L (98-107) mmol/L BUN 70 H (7-17) mg/dL Creatinine 9.1 H (0.7-1.2) mg/dL Glucose 111 H (65-100) mg/dL Calcium 8.3 L (8.4-10.2) mg/dL NT-Pro-B Natriuret Pep 38553 H (0-900) pg/mL Assessment and Plan --Acute hypoxic respiratory failure; secondary to fluid overload Hemodialysis, oxygen titrated O2 sats more than 90% --Hyperkalemia; received the treatment in the ED Closely monitor electrolytes hemodialysis, management per nephrology --End-stage renal disease; on hemodialysis HD per schedule, nephrology consulted --Hypertension; moderate control, resume home antihypertensives and when necessary medications --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
[2018-04-16 12:32] LABS: INR 1.57 (0.87-1.13)
[2018-04-16] MEDS ORDERED: PROCRIT IV PRN (13:28)
--- NOTE | 2018-04-16 13:29 | Consultation ---
History of Present Illness - Reason for Consult Consult date: 04/16/18 end stage renal disease - History of Present Illness patient is a 68 year old female with h/o ESRD on HD every TTS last tx was Sunday, she came to the ED for worsening of SOB, in the ED CXR showed pulm congestion and had severe hyperkalemia on her lab results, renal consult was requested for STAT HD Past History Past Medical History: ESRD, hypertension Medications and Allergies Allergies Allergy/AdvReac Type Severity Reaction Status Date / Time aspirin Allergy Anaphylaxis Verified 02/11/17 16:22 ciprofloxacin Allergy Hives Verified 02/11/17 16:22 heparin Allergy HIT Verified 02/13/17 18:52 ketorolac tromethamine Allergy Hives Verified 02/11/17 16:22 [From Toradol] lorazepam [From Ativan] Allergy Itching Verified 02/11/17 16:22 nifedipine [From Procardia] Allergy Swelling Verified 02/11/17 16:22 OF THROAT nitrofurantoin Allergy Hives Verified 02/11/17 16:22 [From Macrobid] nitrofurantoin Allergy Hives Verified 02/11/17 16:22 macrocrystalline [From Macrobid] Penicillins Allergy Hives Verified 02/11/17 16:22 propoxyphene napsylate Allergy Itching Verified 02/11/17 16:22 [From Darvocet-N] Sulfa (Sulfonamide AdvReac Swelling Verified 02/11/17 16:22 Antibiotics) Home Medications Medication Instructions Recorded Confirmed Last Taken Type Folic Acid [Folvite] 1 mg PO QDAY #30 tablet 02/07/17 04/16/18 11/08/17 Rx OXcarbazepine [Trileptal] 300 mg PO TID #90 tablet 02/07/17 04/16/18 11/08/17 Rx Gabapentin [Neurontin] 300 mg PO BID #60 capsule 02/18/17 04/16/18 11/08/17 Rx Carvedilol [Coreg] 3.125 mg PO BID 04/16/18 04/16/18 Unknown History Ergocalciferol [Vitamin D2] 1 cap PO QWEEK 04/16/18 04/16/18 Unknown History Pantoprazole [Protonix TAB] 20 mg QDAY 04/16/18 04/16/18 Unknown History Warfarin Sodium 10 mg PO DAILY 04/16/18 04/16/18 Unknown History Active Meds: Active Medications Acetaminophen/Hydrocodone Bitart ([place] 7.5/325) 1 each PO Q6H PRN PRN Reason: Pain Alprazolam (Xanax) 0.5 mg PO TID [facility] Amlodipine Besylate (Norvasc) 5 mg PO QDAY [facility] Carvedilol (Coreg) 12.5 mg PO QDAY [facility] Cinacalcet (Sensipar) 60 mg PO QDAY [facility] Clopidogrel Bisulfate (Plavix) 75 mg PO QDAY [facility] Folic Acid (Folvite) 1 mg PO QDAY [facility] Gabapentin (Neurontin) 300 mg PO BID [facility] Sodium Chloride (Nacl 0.9%) 100 mls @ 999 mls/hr IV MIGUEL ÁNGEL PRN PRN Reason: Hypotension Oxcarbazepine (Trileptal) 300 mg PO TID [facility] Prednisone (Deltasone) 10 mg PO QDAY [facility] Tizanidine HCl (Zanaflex) 4 mg PO HS [facility] Warfarin Sodium (Coumadin) 7.5 mg PO DAILY@1700 [facility]; Protocol Review of Systems All systems: negative (SOB, weakness) Exam - Vital Signs Vital signs: Vital Signs Pulse Ox 83 L 04/16/18 07:18 - General Appearance General appearance: well-developed, well-nourished EENT: ATNC, PERRL, mucous membranes moist Neck: Present: neck supple Respiratory: Rales, Ronchi Heart: regular, S1S2 Gastrointestinal: Present: normoactive bowel sounds. Absent: tenderness, distended Integumentary: no rash, warm and dry Neurologic: no focal deficit, no asterixis, alert and oriented x3 Musculoskeletal: Present: other (trace pitting edema in BLE) Psychiatric: cooperative Results - Lab Results 04/16/18 08:29 04/16/18 12:06 Most recent lab results Calcium 8.0 mg/dL (8.4-10.2) L 04/16/18 12:06 Assessment and Plan hypoxic respiratory failure secondary to pulmonary edema - HD today with ultrafiltration, goal 3 L as tolerated - HD again tomorrow ESRD on HD - STAT HD today for clearance and volume removal - will assess dialyssi needs daily, HD ordered again for tomorrow - renally dose meds - strict I&O Hyperkalemia - STAT HD as above Anemia in CKD - Epogen with HD - no indication for transfusion
[2018-04-16 13:30] LABS: Free T4 (Free Thyroxine) 0.53 ng/dL (0.76-1.46)
[2018-04-16] MEDS ORDERED: NACL 0.9% 1000 ML 2,000 ML ONE (14:29)
[2018-04-16 19:53] LABS: Hepatitis B Core IgM Non-Reactive (NonReactive); Hepatitis B Surface Antigen Non-Reactive (Negative)
[2018-04-16] MEDS ORDERED: RESTORIL PO ONE (22:25)
[2018-04-16] MEDS: NEURONTIN PO SCH (22:47)
[2018-04-16] MEDS: COREG PO SCH (22:47)
[2018-04-16] MEDS: ZANAFLEX PO SCH (22:47)
[2018-04-16] MEDS: XANAX PO SCH (22:51)
[2018-04-16] MEDS: TRILEPTAL PO SCH ×2 (22:58→22:59)
[2018-04-17 07:04] LABS: Basophils % (Auto) 0.9 % (0.0-1.8); Eosinophils # (Auto) 0.1 K/mm3 (0.0-0.4); Hematocrit 23.1 % (30.3-42.9); Hemoglobin 7.8 gm/dl (10.1-14.3); Lymphocytes # (Auto) 0.9 K/mm3 (1.2-5.4); Lymphocytes % (Auto) 19.8 % (13.4-35.0); Mean Corpuscular HGB Conc 34 % (30-34); Mean Corpuscular Hemoglobin 33 pg (28-32); Mean Corpuscular Volume 98 fl (79-97); Monocytes # (Auto) 0.4 K/mm3 (0.0-0.8); Monocytes % (Auto) 8.7 % (0.0-7.3); Platelet Count 194 K/mm3 (140-440); Red Blood Count 2.36 M/mm3 (3.65-5.03)
[2018-04-17 07:08] LABS: Red Cell Distribution Width 20.2 % (13.2-15.2)
[2018-04-17 08:12] LABS: INR 1.36 (0.87-1.13)
[2018-04-17 09:16] LABS: Calcium 8.6 mg/dL (8.4-10.2)
[2018-04-17] MEDS: XANAX PO SCH ×3 (10:12→21:30)
[2018-04-17] MEDS ORDERED: KIONEX PO ONE ×2 (11:30→18:00)
[2018-04-17] MEDS ORDERED: CALCIUM CHLORIDE 1,000 MG in NACL 0.9% 100 ML IV ONE (11:30)
--- NOTE | 2018-04-17 12:23 | Progress Note ---
Assessment and Plan Hypoxic respiratory failure secondary to pulmonary edema: -Hemodialysis again today for volume removal -Fluid restriction of 1 liter per day ESRD on Hemodialysis: -Hemodialysis again today for clearance and volume removal -Fluid restriction of 1 liter per day -Renal diet -Renally dose medications -Strict I&O monitoring -Obtain daily weights -Assess dialysis needs daily Hyperkalemia: -Hemodialysis again today -Low potassium diet Anemia in CKD: -Epogen 10,000 units with HD -No indication for transfusion -Monitor H/H Hypertension: -On Amlodipine and Coreg -Adjust regimen as needed Subjective Date of service: 04/17/18 Principal diagnosis: ESRD Interval history: Patient seen in dialysis unit receiving hemodialysis without difficulty Objective - Vital Signs Vital signs: Vital Signs - 12hr 04/17/18 04/17/18 04/17/18 04:12 10:03 10:31 Temperature 98.3 F 98.6 F Pulse Rate 68 77 78 Respiratory 20 18 Rate Blood Pressure 107/46 Blood Pressure 123/49 [Right] O2 Sat by Pulse 98 100 Oximetry 04/17/18 04/17/18 04/17/18 10:45 11:00 11:15 Temperature 98.0 F Pulse Rate 71 71 70 Respiratory 18 Rate Blood Pressure 128/59 128/59 135/70 Blood Pressure [Right] O2 Sat by Pulse Oximetry 04/17/18 04/17/18 11:30 11:45 Temperature Pulse Rate 62 69 Respiratory Rate Blood Pressure 122/54 125/57 Blood Pressure [Right] O2 Sat by Pulse Oximetry - General Appearance General appearance: well-developed, appears stated age EENT: ATNC, PERRL, hearing intact, vision intact Neck: no JVD, supple Respiratory: Present: Decreased Breath Sounds Cardiology: regular, S1S2 Gastrointestinal: normoactive bowel sounds Integumentary: warm and dry Neurologic: alert and oriented x3 Musculoskeletal: joint swelling Psychiatric: cooperative - Lab 04/17/18 06:13 04/17/18 06:13 Most recent lab results Calcium 8.6 mg/dL (8.4-10.2) 04/17/18 06:13
[2018-04-17] MEDS ORDERED: AMBIEN PO PRN (12:56)
[2018-04-17] MEDS: PLAVIX PO SCH ×2 (16:47→16:56)
[2018-04-17] MEDS: SENSIPAR PO SCH ×2 (16:47→16:56)
[2018-04-17] MEDS: COUMADIN PO SCH ×2 (16:47→16:56)
[2018-04-17] MEDS: TRILEPTAL PO SCH ×3 (16:48→21:30)
[2018-04-17] MEDS: FOLVITE PO SCH (16:49)
[2018-04-17] MEDS: DELTASONE PO SCH (16:51)
[2018-04-17] MEDS: COREG PO SCH (16:52)
[2018-04-17] MEDS: NORVASC PO SCH (16:53)
[2018-04-17] MEDS: NORCO 7.5/325 PO PRN (16:54)
[2018-04-17] MEDS: NEURONTIN PO SCH ×2 (16:55→22:50)
--- NOTE | 2018-04-17 18:50 | Progress Note ---
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; on lifelong anticoagulation with Coumadin Closely monitor, target INR 2-3, consult hematology as needed --DVT prophylaxis; heparin and renal dose Closely monitor the patient and adjust management as needed History Interval history: Patient received hemodialysis today Hospitalist Physical - Constitutional Vitals: Temp Pulse Resp BP Pulse Ox 98.7 F 89 18 111/42 93 04/17/18 16:00 04/17/18 16:53 04/17/18 16:00 04/17/18 16:53 04/17/18 16:00 General appearance: Present: no acute distress, well-nourished Results - Labs CBC & Chem 7: 04/17/18 06:13 04/17/18 06:13 Labs: Laboratory Last Values WBC 4.6 K/mm3 (4.5-11.0) 04/17/18 06:13 RBC 2.36 M/mm3 (3.65-5.03) L 04/17/18 06:13 Hgb 7.8 gm/dl (10.1-14.3) L 04/17/18 06:13 Hct 23.1 % (30.3-42.9) L 04/17/18 06:13 MCV 98 fl (79-97) H 04/17/18 06:13 MCH 33 pg (28-32) H 04/17/18 06:13 MCHC 34 % (30-34) 04/17/18 06:13 RDW 20.2 % (13.2-15.2) H 04/17/18 06:13 Plt Count 194 K/mm3 (140-440) 04/17/18 06:13 Lymph % (Auto) 19.8 % (13.4-35.0) 04/17/18 06:13 [place] % (Auto) 8.7 % (0.0-7.3) H 04/17/18 06:13 Eos % (Auto) 3.0 % (0.0-4.3) 04/17/18 06:13 Baso % (Auto) 0.9 % (0.0-1.8) 04/17/18 06:13 Lymph # 0.9 K/mm3 (1.2-5.4) L 04/17/18 06:13 [place] # 0.4 K/mm3 (0.0-0.8) 04/17/18 06:13 Eos # 0.1 K/mm3 (0.0-0.4) 04/17/18 06:13 Baso # 0.0 K/mm3 (0.0-0.1) 04/17/18 06:13 Seg Neutrophils % 67.6 % (40.0-70.0) 04/17/18 06:13 Seg Neutrophils # 3.1 K/mm3 (1.8-7.7) 04/17/18 06:13 PT 17.3 Sec. (12.2-14.9) H 04/17/18 06:13 INR 1.36 (0.87-1.13) H 04/17/18 06:13 Sodium 141 mmol/L (137-145) 04/17/18 06:13 Potassium 5.8 mmol/L (3.6-5.0) H 04/17/18 06:13 Chloride 95.1 mmol/L (98-107) L 04/17/18 06:13 Carbon Dioxide 31 mmol/L (22-30) H 04/17/18 06:13 Anion Gap 21 mmol/L 04/17/18 06:13 BUN 30 mg/dL (7-17) H 04/17/18 06:13 Creatinine 5.4 mg/dL (0.7-1.2) H 04/17/18 06:13 Estimated GFR 8 ml/min 04/17/18 06:13 BUN/Creatinine Ratio 6 % 04/17/18 06:13 Glucose 90 mg/dL (65-100) 04/17/18 06:13 Hemoglobin A1c < 4.2 % (4-6) 04/16/18 12:47 Calcium 8.6 mg/dL (8.4-10.2) 04/17/18 06:13 Troponin T 0.015 ng/mL (0.00-0.029) 04/16/18 09:15 NT-Pro-B Natriuret Pep 70249 pg/mL (0-900) H 04/16/18 08:29 TSH 0.999 mlU/mL (0.270-4.200) 04/16/18 12:47 Free T4 0.53 ng/dL (0.76-1.46) L 04/16/18 12:47 Thyroxine (T4) 3.0 ug/dL (4.0-12.0) L 04/16/18 12:47 Hep Bs Antigen Non-reactive (Negative) 04/16/18 12:47 Hep B Core IgM Ab Non-reactive (NonReactive) 04/16/18 12:47
[2018-04-17] MEDS: ZANAFLEX PO SCH (22:50)
[2018-04-18 07:48] LABS: Basophils % (Auto) 0.5 % (0.0-1.8); Eosinophils # (Auto) 0.1 K/mm3 (0.0-0.4); Eosinophils % (Auto) 1.1 % (0.0-4.3); Hematocrit 27.5 % (30.3-42.9); Hemoglobin 9.3 gm/dl (10.1-14.3); Lymphocytes # (Auto) 1.1 K/mm3 (1.2-5.4); Lymphocytes % (Auto) 17.6 % (13.4-35.0); Mean Corpuscular HGB Conc 34 % (30-34); Mean Corpuscular Hemoglobin 33 pg (28-32); Mean Corpuscular Volume 99 fl (79-97); Monocytes # (Auto) 0.6 K/mm3 (0.0-0.8); Monocytes % (Auto) 9.6 % (0.0-7.3); Platelet Count 210 K/mm3 (140-440); Red Blood Count 2.77 M/mm3 (3.65-5.03); Red Cell Distribution Width 20.7 % (13.2-15.2)
[2018-04-18 07:57] LABS: INR 1.14 (0.87-1.13)
[2018-04-18 08:03] LABS: Calcium 9.3 mg/dL (8.4-10.2)
--- NOTE | 2018-04-18 09:36 | Progress Note ---
Assessment and Plan Hypoxic respiratory failure secondary to pulmonary edema: -UF with HD -Fluid restriction of 1 liter per day ESRD on Hemodialysis: -no indication for HD today - ok to be discharged from renal standpoint, next HD tx is tomorrow as an outpatient in [facility] -Fluid restriction of 1 liter per day -Renal diet -Renally dose medications -Strict I&O monitoring -Obtain daily weights -Assess dialysis needs daily Hyperkalemia: -Low potassium diet Anemia in CKD: -Epogen 10,000 units with HD -No indication for transfusion -Monitor H/H Hypertension: -On Amlodipine and Coreg -Adjust regimen as needed Subjective Date of service: 04/18/18 Principal diagnosis: ESRD Interval history: tolerated HD yesterday, feels better overall Objective - Vital Signs Vital signs: Vital Signs - 12hr 04/17/18 04/17/18 04/18/18 22:00 23:38 04:00 Temperature Pulse Rate 81 81 Pulse Rate [ 81 Left Radial] Respiratory 18 18 Rate Blood Pressure 125/54 [Right] O2 Sat by Pulse 100 100 Oximetry 04/18/18 04/18/18 06:09 08:38 Temperature 98.1 F 97.3 F L Pulse Rate 68 63 Pulse Rate [ Left Radial] Respiratory 18 18 Rate Blood Pressure 111/50 135/59 [Right] O2 Sat by Pulse 98 100 Oximetry - General Appearance General appearance: well-developed, well-nourished, appears stated age EENT: ATNC, PERRL, mucous membranes moist Neck: no JVD, no carotid bruit Respiratory: Present: Clear to Ascultation. Absent: Rales, Ronchi Cardiology: regular, S1S2 Gastrointestinal: normoactive bowel sounds, no tenderness, no distended Integumentary: no rash, warm and dry Neurologic: no focal deficit, no asterixis, alert and oriented x3 Musculoskeletal: other (no edema in BLE) Psychiatric: mood/affect appropriate, cooperative - Lab 04/18/18 06:59 04/18/18 06:59 Most recent lab results Calcium 9.3 mg/dL (8.4-10.2) 04/18/18 06:59
[2018-04-18 10:02] LABS: Hepatitis A Antibody IgM NonReactive (NonReactive)
[2018-04-18] MEDS: NEURONTIN PO SCH (10:55)
[2018-04-18] MEDS: NORCO 7.5/325 PO PRN (10:55)
[2018-04-18] MEDS: NORVASC PO SCH (10:55)
[2018-04-18] MEDS: TRILEPTAL PO SCH ×2 (10:55→15:08)
[2018-04-18] MEDS: PLAVIX PO SCH (10:56)
[2018-04-18] MEDS: SENSIPAR PO SCH (10:56)
[2018-04-18] MEDS: FOLVITE PO SCH (10:56)
[2018-04-18] MEDS: XANAX PO SCH ×2 (10:57→15:10)
[2018-04-18] MEDS: DELTASONE PO SCH (10:57)
[2018-04-18] MEDS: COREG PO SCH (10:57)
[2018-04-18 12:04] VITALS: BP 123/42
[2018-04-18 12:32] LABS: Hepatitis C Virus Antibody Nonreactive (NonReactive)
--- NOTE | 2018-04-18 13:21 | Discharge Summary ---
Providers - Providers Date of Admission: 04/16/18 09:46 Date of discharge: 04/18/18 Attending physician: MELODIE ORLANDO 04/16/18 11:19 Consult to Physician [CONS] Stat Comment: Consulting Provider: SORIN LYNN Physician Instructions: Reason For Exam: ESRD on HD/ Hyperkalemia Primary care physician: [employer] Hospitalization Condition: Stable Disposition: DC-01 TO HOME OR SELFCARE Time spent for discharge: 32 min Core Measure Documentation - Palliative Care Palliative Care/ Comfort Measures: Not Applicable - Core Measures Any of the following diagnoses?: none Exam - Constitutional Vitals: Temp Pulse Resp BP Pulse Ox 97.3 F L 73 18 123/42 100 04/18/18 08:38 04/18/18 11:59 04/18/18 11:59 04/18/18 11:59 04/18/18 11:59 General appearance: Present: no acute distress, well-nourished - EENT Eyes: Present: PERRL, EOM intact - Neck Neck: Present: supple, normal ROM - Respiratory Respiratory effort: normal Respiratory: bilateral: diminished, negative: rales, rhonchi, wheezing - Cardiovascular Rhythm: regular Heart Sounds: Present: S1 & S2 - Extremities Extremities: no ischemia, No edema - Abdominal General gastrointestinal: Present: soft, non-tender, non-distended, normal bowel sounds - Integumentary Integumentary: Present: clear, warm - Musculoskeletal Musculoskeletal: strength equal bilaterally - Psychiatric Psychiatric: appropriate mood/affect, cooperative - Neurologic Neurologic: CNII-XII intact, moves all extremities Plan Activity: advance as tolerated, fall precautions Diet: renal Additional Instructions: Follow renal/hemodialysis per schedule Follow up with: LAUREANO LR MD [Primary Care Provider] - 3-5 Days SORIN LYNN MD [Staff Physician] - 7 Days Forms: Warfarin Discharge Instruction Prescriptions: ALPRAZolam [Xanax TAB] 0.5 mg PO TID #6 tablet HYDROcodone/APAP 7.5-325 [[place] 7.5-325 mg TAB] 1 each PO BID PRN #6 tablet PRN Reason: Pain, Moderate (4-6)
[2018-04-18] MEDS ORDERED: ZOFRAN IV STA (15:05)
== END 2018-04-18 16:19 | disposition home or self-care (01) | DRG 291 ==
LOC: ED 06:31 → 4A 09:46
PROVIDERS: ADMIT Internal Medicine; ATTEND Internal Medicine
PROC: 5A1D70Z Performance of Urinary Filtration, Intermittent, Less than 6 Hours Per Day (ICD-10-PCS; principal; 2018-04-16)
PROC: 5A1D70Z Performance of Urinary Filtration, Intermittent, Less than 6 Hours Per Day (ICD-10-PCS; 2018-04-17)
DX: I13.2 Hypertensive heart and chronic kidney disease with heart failure and with stage 5 chronic kidney disease, or end stage renal disease (principal); J96.01 Acute respiratory failure with hypoxia; N18.6 End stage renal disease; E87.5 Hyperkalemia; K21.9 Gastro-esophageal reflux disease without esophagitis; I50.9 Heart failure, unspecified; M19.90 Unspecified osteoarthritis, unspecified site; J45.909 Unspecified asthma, uncomplicated; G62.9 Polyneuropathy, unspecified; D63.1 Anemia in chronic kidney disease; Z99.2 Dependence on renal dialysis; Z88.1 Allergy status to other antibiotic agents; Z88.0 Allergy status to penicillin; Z88.8 Allergy status to other drugs, medicaments and biological substances; Z79.899 Other long term (current) drug therapy; Z88.2 Allergy status to sulfonamides; Z82.49 Family history of ischemic heart disease and other diseases of the circulatory system; Z86.718 Personal history of other venous thrombosis and embolism; Z90.49 Acquired absence of other specified parts of digestive tract; Z79.01 Long term (current) use of anticoagulants
CPT/HCPCS: 36415; 71045; 80048; 80074; 83036; 83880; 84436; 84439; 84443; 84484; 85025; 85610; 93005; 93010; 94640; J1815; J2405; J7030; J7512

== ENCOUNTER 2018-08-02 06:23 | Day surgery (SDC) | payer MEDICARE ==
[~2018-08-02 06:23] MED LIST changes: +ANCEF/STERILE WATER 2 GM/20 ML 2 GM/20 ML SYRINGE IV NR; +NACL 0.9% 1000 ML 1,000 ML IV SCH; -VANCOMYCIN/0.45 NS 1 GM/250 ML 1 GM/250 ML BAG IV NR
[2018-08-02] MEDS ORDERED: XYLOCAINE 2% INFILTRATI ONE (08:44)
[2018-08-02] MEDS ORDERED: NACL 0.9% 100 ML ONE (08:45)
[2018-08-02] MEDS ORDERED: WATER FOR INJ Sterile (PF) 10 ML ONE (08:45)
[2018-08-02] MEDS ORDERED: ANGIOMAX IV ONE (08:45)
[2018-08-02] MEDS ORDERED: NACL 0.9% 500 ML 500 ML ONE ×2 (08:46→09:01)
[2018-08-02] MEDS ORDERED: ANCEF/STERILE WATER 2 GM/20 ML 2 GM/20 ML SYRINGE IV ONE (09:04)
[2018-08-02] MEDS: SUBLIMAZE ONE ×2 (09:19→09:27)
[2018-08-02] MEDS: VERSED ONE ×2 (09:19→09:27)
[2018-08-02] MEDS ORDERED: VERSED ONE (09:37)
[2018-08-02] MEDS ORDERED: SUBLIMAZE ONE (09:37)
--- NOTE | 2018-08-02 09:50 | Short Stay Summary ---
Short Stay Documentation Date of service: 08/02/18 Narrative H&P: 68 year old female with ESRD and AVF malfunction. Also has neuropathy of her hands and feet with palpable left radial and ulnar pulses. Pressure held on AVG did not result in reversal of discomfort. Pain from neuropathy at this time. - History Principal diagnosis: AVG malfunction Past Medical History: ESRD Past Surgical History: Other (multiple AV access revisions) - Allergies and Medications Current Medications: Allergies ciprofloxacin Allergy (Verified 02/11/17 16:22) Hives heparin Allergy (Verified 02/13/17 18:52) HIT Per Pt statement. W/U as an outpt with hematology. ketorolac tromethamine [From Toradol] Allergy (Verified 02/11/17 16:22) Hives lorazepam [From Ativan] Allergy (Verified 02/11/17 16:22) Itching nifedipine [From Procardia] Allergy (Verified 02/11/17 16:22) Swelling OF THROAT nitrofurantoin [From Macrobid] Allergy (Verified 02/11/17 16:22) Hives nitrofurantoin macrocrystalline [From Macrobid] Allergy (Verified 02/11/17 16:22) Hives Penicillins Allergy (Verified 02/11/17 16:22) Hives propoxyphene napsylate [From Darvocet-N] Allergy (Verified 02/11/17 16:22) Itching Sulfa (Sulfonamide Antibiotics) Adverse Reaction (Verified 02/11/17 16:22) Swelling Home Medications Medication Instructions Recorded Confirmed Last Taken Type ALPRAZolam [Xanax TAB] 0.5 mg PO TID #6 tablet 04/18/18 08/02/18 06/16/18 Rx 0.5mg AtorvaSTATin [Lipitor] 20 mg PO QHS #30 tab 05/24/18 08/02/18 08/01/18 Rx 20mg ALBUTEROL NEB's [Proventil 0.083% 2.5 mg IH Q6HRT PRN #30 nebu 06/18/18 08/02/18 07/19/18 Rx NEBS] 2.5mg Acetaminophen [Acetaminophen TAB] 650 mg PO Q4H PRN #10 tablet 06/18/18 08/02/18 06/29/18 Rx 325mg Carvedilol [Coreg] 3.125 mg PO BIDWM #60 06/18/18 08/02/18 08/01/18 Rx 3.125mg Epoetin [place] 10,000 Unit [Procrit] 10,000 unit SUB-Q MIGUEL ÁNGEL #1 vial 06/18/18 08/02/18 08/01/18 [place] 35645 units Zolpidem [Ambien] 5 mg PO QHS PRN #10 tablet 06/18/18 08/02/18 08/01/18 Rx 5mg Aspirin EC [Aspirin Enteric Coated 81 mg PO QDAY 08/02/18 08/02/18 08/01/18 History TAB] Warfarin Sodium 10 mg PO DAILY 08/02/18 08/02/18 Unknown History Active Medications Cefazolin Sodium (Ancef/Sterile Water 2 Gm/20 Ml) 2 gm in 20 mls @ 80 mls/hr IV PREOP NR; Protocol Stop: 08/02/18 23:59 Sodium Chloride (Nacl 0.9% 1000 Ml) 1,000 mls @ 42 mls/hr IV DIRECT INDIO - Physical exam General appearance: no acute distress Lungs: Normal air movement Gastrointestinal: normal Extremities: normal temperature, normal color, abnormal (thrill AVG) - Brief post op/procedure progress note Date of procedure: 08/02/18 Pre-op diagnosis: ESRD with AVG malfunction Post-op diagnosis: same Procedure: Fistulogram with central and peripheral angioplasty Anesthesia: local Surgeon: PATTI FONTANEZ Estimated blood loss: minimal Condition: stable - Hospital course Hospital course: Tolerated procedure well. Ready for discharge. - Disposition Condition at discharge: Stable Disposition: DC- TO HOME OR SELFCARE - Discharge Diagnoses (1) Malfunction of arteriovenous graft Status: Acute Short Stay Discharge Plan Activity: advance as tolerated Weight Bearing Status: Weight Bear as Tolerated Diet: renal Wound: keep clean and dry Follow up with: PRIMARY CARE, [Primary Care Provider] - 7 Days
--- NOTE | 2018-08-02 09:51 | Operative Report ---
Operative Report Operative Report: EXAM: Ultrasound guided access of the left arm AV loop graft towards the venous anastomosis Placement of a sheath towards the venous outflow Fistulogram Venous anastomotic stent and peripheral graft venoplasty with an 8 mm angioplasty balloon Innominate vein venoplasty with a 12 mm angioplasty balloon DATE: 08/02/18 HYDROGEN OPERATOR: PATTI FONTANEZ MD INDICATION: AV fistula malfunction with left hand pain which does not respond to compression of the AV graft consistent with patient's known neuropathy. Discussed with the patient she will need to follow up with neurology and pain management as has been requested in the past. MEDICATIONS: Please see nursing report for full details. PROCEDURE: The risks, benefits, and alternatives of the procedure were discussed and written informed consent was obtained. The patient was transported in stable condition to the angiography suite. The patient's left arm AV loop graft was assessed by ultrasound and was patent. The patient was prepped and draped in a sterile fashion. Under ultrasound guidance, the left arm AV graft was accessed with a 21-gauge micropuncture needle. The area was anesthetized prior to access. 0.018 inch wire was advanced through the micropuncture needle into the fistula and then the needle was exchanged for a 5 [place] transitional dilator. The inner dilator and wire were removed and a 0.035 inch wire was advanced through the venous outflow. The transitional dilator was exchanged for a 7 [place] short sheath. Fistulogram was performed of the venous outflow and central veins. Reflux into the arterial anastomosis was performed. There was 70% narrowing of the left innominate vein is entered the SVC. There was 40% narrowing of the left distal graft. There is 20% narrowing of the stent in the left venous anastomosis. The rest of the graft was patent. The axillary artery and brachial artery distal to the anastomosis were both patent. The anastomosis was widely patent. The inflow is patent. 12 mm angioplasty balloon was used to perform angioplasty of the left innominate vein. 8 mm angioplasty balloon was used from angioplasty of the stent in the venous anastomotic segment. 8 mm angioplasty was used to perform angioplasty of the distal portion of the graft. Digital subtraction angiography was performed demonstrating 20% residual narrowing of the left innominate vein as it enters the SVC, less than 10% residual narrowing of the graft and venous anastomotic stent. The wire was removed and the site was closed with Vicryl suture. The sheath was then removed. Hemostasis was achieved with slight manual compression. The patient was transported from the angiography suite to the floor in stable condition. IMPRESSION: 1. Successful peripheral dialysis access angioplasty. 2. Successful central dialysis access angioplasty
[2018-08-02] MEDS ORDERED: NORCO 5/325 PO ONE (10:22)
[2018-08-02] MEDS ORDERED: NORCO 5/325 ONE (10:27)
[2018-08-02 11:01] VITALS: BP 139/57
== END 2018-08-02 11:45 | disposition home or self-care (01) ==
LOC: CATHLABREC 06:23
PROVIDERS: ATTEND Radiology Diagnostic Radiology
DX: T82.858A Stenosis of other vascular prosthetic devices, implants and grafts, initial encounter (principal); I13.2 Hypertensive heart and chronic kidney disease with heart failure and with stage 5 chronic kidney disease, or end stage renal disease; I50.9 Heart failure, unspecified; N18.6 End stage renal disease; J45.909 Unspecified asthma, uncomplicated; K21.9 Gastro-esophageal reflux disease without esophagitis; M19.90 Unspecified osteoarthritis, unspecified site; D64.9 Anemia, unspecified; M10.9 Gout, unspecified; Z79.82 Long term (current) use of aspirin; Z79.899 Other long term (current) drug therapy; Z79.01 Long term (current) use of anticoagulants; Z88.0 Allergy status to penicillin; Z88.2 Allergy status to sulfonamides; Z88.1 Allergy status to other antibiotic agents; Z88.8 Allergy status to other drugs, medicaments and biological substances; Z95.5 Presence of coronary angioplasty implant and graft; Z90.49 Acquired absence of other specified parts of digestive tract; Z86.718 Personal history of other venous thrombosis and embolism; Z98.890 Other specified postprocedural states; Y83.2 Surgical operation with anastomosis, bypass or graft as the cause of abnormal reaction of the patient, or of later complication, without mention of misadventure at the time of the procedure; Z83.3 Family history of diabetes mellitus; Z82.49 Family history of ischemic heart disease and other diseases of the circulatory system
CPT/HCPCS: 36415; 36902; 36907; 84132; 99156; 99157; C1725; C1751; C1769; C1894; J0583; J0690; J2250; J3010; J7040; Q9967